=== PATIENT | male | born 1965 | race Hispanic/Latino ===

== ENCOUNTER 2020-05-06 21:23 | Inpatient (IN) | payer OTHER ==
--- OUTSIDE RECORDS SUMMARY | 2020-05-06 21:26 | XMS REPORT | Encounter Summary ---
:1965 Author Care Team Providers Name Role Phone Dr. Daniel Trujillo Primary Care Provider [phone] Reason for Visit Telemedicine Visit; cough Instructions 1. COVID-19 azithromycin 250 mg tablet albuterol sulfate HFA 90 m cg/actuation aerosol inhaler prednisone 20 mg tablet codeine 10 mg-guaifenesin 100 mg/5 mL oral liquid 2. Body mass index 30+ - obesity body mass index: care inst ructions learning about healthy jatin ght Discussion Note: None recorded. Plan of Care Patient Instructions Your symptoms may take 7-10 days to go away. Drink lots of fluids. Get plenty of rest . Contact us if you have worsening symptom s such as high fever (102F), shortness of breath, inability to keep liquids and solids down, or other worsening symptoms. Contact us if your symptoms fail to improve after 10 days. Reminders Provider Appointments None recorded. Lab None recorded. Referral None recorded. Procedures None recorded. Surgeries None recorded. Imaging None recorded. Medications Name Start Date albuterol sulfate HFA 90 mcg/actuation aerosol inhaler Inhale 2 puffs every 4 hours by inhalation route as n eeded. azithromycin 250 mg tablet TAKE 2 TABLETS (500 MG) BY ORAL ROUTE O NCE DAILY FOR 1 DAY THEN 1 TABLET (250 MG) BY ORAL ROUTE ONCE DAILY FOR 4 DAYS zlrifdczgqkpwod-[id number]-VP 2 mg-30 mg-10 mg/5 mL oral syrup TAKE 5 ML BY MOUTH THREE TIMES DAILY NEEDED FOR COUGH AND CONGESTION OR ALLERGIES codeine 10 mg-guaifenesin 100 mg/5 mL oral liquid Take 10 mL every 4-6 hours by oral route as needed. fenofibrate 160 mg tablet 1 tablet every day by oral route. metformin 500 mg tablet 1 tablet every day by oral route. phentermine 37.5 mg tablet Take 1 tablet every day by oral route for 30 days. prednisone 20 mg tablet Take 2 tablets every day by oral route for 5 days. Medications Administered None recorded. Vitals Height Weight BMI 5 ft 5 in 204 lbs 33.9 kg/m2 Results Lab Results None recorded. Allergies Code Code System Name Reaction Severity Status Onset NKDA Problems None recorded. Procedures None recorded. Vaccine List None recorded. Social History Tobacco Smoking Status Never Smoker Past Encounters Encounter Date Diagnosis Provider 05/04/2020 Covid-19; Body Mass Index 30+ Jone Allen MENDING CARRIER: [id number] - Obesity [facility], [address], [place] [address], Ph. History of Present Illness Note: Pt has had cough since 04/17. Was tested for COVID and flu on 04/17, positive for flu. Symptoms continued and was tested on 04/28 for COVID and tested positive. Body aches due to cough, dry cough, fever off/on tmax 103, SOB due to cough.Review of Systems: ROS as noted in the HPI Review of Systems Comprehensive General Adult ROS Reported By: Patient Constitutional: Constitutional: fever Eyes: Eyes: no vision change Cardiovascular: Cardiovascular: no chest alexis n, no shortness of breath when walking, no palpitations, no lighthea dedness Respiratory: Respiratory: no wheezing, no shortness of breath, no coughing up blood, cough Neurologic: Neurologic: no weakness, no numbness, no dizziness, no headaches Endocrine: Endocrine: no fatigue Physical Exam General Adult Exam (Female) Reported By: Patient Constitutional: General Appearance: healthy- appearing. Level of Distress: NAD, acutely ill Psychiatric: Insight: good judgement. Men babak Status: active and alert, normal mood, normal affect. Orienta tion: to time, to place, to person. Memory: recent memory normal Head: Head: normocephalic, atrauma tic Eyes: Vision: acuity grossly intac t Neck: Neck: FROM Lungs: Respiratory effort: no dyspn ea; +audible dry cough throughout visit
--- OUTSIDE RECORDS SUMMARY | 2020-05-06 21:26 | XMS REPORT | Continuity of Care Document ---
:1965 Author Organization [facility] t Address [address] [place] [address] Care Team Providers Name Role Phone Unavailable Unavailable Unavailable Problems This patient has no known problems. Allergies, Adverse Reactions, Alerts This patient has no known allergies or adverse reactions. Social History Smoking Status Start Date Stop Date Source Never Smoker [facility] Medications Ordered Filled Start Stop Current Ordering Indication Dosage Frequency Signature Comments Components Source Medication Medication Date Date Medication? Clinician (SIG) Name Name albuterol albuterol No 2puff(s Q4H albuterol [facility] sulfate HFA sulfate HFA ) sulfate Family 90 90 HFA 90 Pract[facility] mcg/actuati mcg/actuati mcg/actuat e on aerosol on aerosol ion inhaler inhaler aerosol Inhale 2 Inhale 2 inhaler puffs every puffs every Inhale 2 4 hours by 4 hours by puffs inhalation inhalation every 4 route as route as hours by needed. needed. inhalation route as needed. azithromyci azithromyci No azithromyc [facility] n 250 mg n 250 mg in 250 mg Fa angeline tablet TAKE tablet TAKE tablet Practic 2 TABLETS 2 TABLETS TAKE 2 e (500 MG) BY (500 MG) BY TABLETS ORAL ROUTE ORAL ROUTE (500 MG) ONCE DAILY ONCE DAILY BY ORAL FOR 1 DAY FOR 1 DAY ROUTE ONCE THEN 1 THEN 1 DAILY FOR TABLET (250 TABLET (250 1 DAY THEN MG) BY ORAL MG) BY ORAL 1 TABLET ROUTE ONCE ROUTE ONCE (250 MG) DAILY FOR 4 DAILY FOR 4 BY ORAL DAYS DAYS ROUTE ONCE DAILY FOR 4 DAYS bromphenira bromphenira No bromphenir [facility] mine-pseudo mine-pseudo amine-pseu Family ephedrine-D ephedrine-D doephedrin Pract[facility] M 2 mg-30 M 2 mg-30 e-DM 2 e mg-10 mg/5 mg-10 mg/5 mg-30 mL oral mL oral mg-10 mg/5 syrup TAKE syrup TAKE mL oral 5 ML BY 5 ML BY syrup TAKE MOUTH THREE MOUTH THREE 5 ML BY TIMES DAILY TIMES DAILY MOUTH NEEDED NEEDED THREE FOR COUGH FOR COUGH TIMES AND AND DAILY CONGESTION CONGESTION NEEDED FOR OR OR COUGH AND ALLERGIES ALLERGIES CONGESTION OR ALLERGIES codeine 10 codeine 10 No 10mL Q5H codeine 10 [facility] mg-guaifene mg-guaifene mg-guaifen Family sin 100 sin 100 esin 100 Pract ic mg/5 mL mg/5 mL mg/5 mL e oral liquid oral liquid oral Take 10 mL Take 10 mL liquid every 4-6 every 4-6 Take 10 mL hours by hours by every 4-6 oral route oral route hours by as needed. as needed. oral route as needed. fenofibrate fenofibrate No 1 Q1D fenofibrat [facility] 160 mg 160 mg e 160 mg Family tablet 1 tablet 1 tablet 1 Practic tablet tablet tablet e every day every day every day by oral by oral by oral route. route. route. metformin metformin No 1 Q1D metformin [facility] 500 mg 500 mg 500 mg Family tablet 1 tablet 1 tablet 1 Practic tablet tablet tablet e every day every day every day by oral by oral by oral route. route. route. phentermine phentermine No 1 Q1D phentermin [facility] 37.5 mg 37.5 mg e 37.5 mg Fami ly tablet Take tablet Take tablet Practic 1 tablet 1 tablet Take 1 e every day every day tablet by oral by oral every day route for route for by oral 30 days. 30 days. route for 30 days. prednisone prednisone No 2 Q1D prednisone [facility] 20 mg 20 mg 20 mg Family tablet Take tablet Take tablet Practic 2 tablets 2 tablets Take 2 e every day every day tablets by oral by oral every day route for 5 route for 5 by oral days. days. route for 5 days. Vital Signs Vital Name Observation Time Observation Value Comments Source Height 2020-05-04 00:00:00 65 [in_i] [facility] BMI (Body Mass 2020-05-04 00:00:00 33.9 kg/m2 [facility] Body Weight 2020-05-04 00:00:00 204 [lb_av] [facility] Procedures This patient has no known procedures. Plan of Care Planned Activity Planned Date Details Comments Source Instructions [facility] Encounters Start End Encounter Admission Attending Care Care Encounter Source Date/Time Date/Time Type Type Clinicians Facility Department ID 2020-05-04 2020-05-04 Jone Whiting [facility] [place] - [id number] [facility] 00:00:00 00:00:00 AllenRoxana Elizabeth y MELT HELPER: [id number] Medical - Pract [facility], [place] [address], ([facility]) [place] [address] , Ph. Results This patient has no known results.
[2020-05-06] MEDS ORDERED: dexAMETHasone 10 MG/ML VIAL ONE (22:14)
[2020-05-06 22:29] LABS: Absolute Lymphocytes (CBC) 0.9 K/uL (0.7-4.9); Basophils % 0.1 % (0-1.3); Hematocrit 47.3 % (39.6-49.0); Lymphocytes % 10.8 % (15.3-44.8); MPV 8.7 fL (7.6-11.3)
[2020-05-06 22:32] LABS: Protime INR 1.01
--- NOTE | 2020-05-06 22:42 | ER ---
Nurse's Notes [facility] Name: Maicol Cartagena Age: 54 yrs Sex: Male : 1965 Arrival Date: 05/06/2020 Time: 21:24 Bed 17 Private MD: Diagnosis: Coronavirus infection, unspecified;Pneumonia, unspecified organism;Hypoxia Presentation: 05/06 21:25 Acuity: SANDEEP 3 jb4 21:25 Method Of Arrival: EMS: [facility] jb4 21:25 Chief complaint: EMS states: PT was diagnosed with covid 19 eight days ago. Reports jb4 increased shortness of breath upon exertion. Denies fever. Coronavirus screen: Client presents with at least one sign or symptom that may indicate coronavirus-19. Standard/surgical mask placed on the client. Provider contacted for isolation considerations. Client reports previous positive COVID test result. Ebola Screen: No symptoms or risks identified at this time. Initial Sepsis Screen: Does the patient meet any 2 criteria? HR > 90 bpm. Yes Does the patient have a suspected source of infection? No. Patient's initial sepsis screen is negative. Risk Assessment: Do you want to hurt yourself or someone else? Patient reports no desire to harm self or others. Onset of symptoms was May 06, 2020. Transition of care: patient was not received from another setting of care. Historical: - Allergies: 19:15 No Known Allergies; jb4 - Home Meds: 19:15 Metformin Oral [Active]; Prednisone Oral [Active]; jb4 - PMHx: 19:15 Diabetes - NIDDM; jb4 - PSHx: 19:15 right shoulder; right hand; right knee; jb4 - Immunization history:: Adult Immunizations up to date. - Social history:: Smoking status: Patient denies any tobacco usage or history of. Patient uses alcohol, occasionally. Patient/guardian denies using street drugs. Screenin:25 Abuse screen: Denies threats or abuse. Nutritional screening: No deficits noted. jb4 Tuberculosis screening: No symptoms or risk factors identified. Fall Risk None identified. Assessment: 21:25 General: Appears in no apparent distress. uncomfortable, Behavior is calm, cooperative, jb4 appropriate for age. Pain: Denies pain. Neuro: Level of Consciousness is awake, alert, obeys commands, Oriented to person, place, time, situation. Cardiovascular: Patient's skin is warm and dry. Rhythm is sinus tachycardia. Respiratory: Airway is patent Respiratory effort is even, unlabored, Respiratory pattern is regular, symmetrical, Breath sounds are clear bilaterally. Breath sounds are diminished in right lower lobe and right posterior lower lobe. GI: No signs and/or symptoms were reported involving the gastrointestinal system. : No signs and/or symptoms were reported regarding the genitourinary system. EENT: No signs and/or symptoms were reported regarding the EENT system. Derm: Skin is intact, Skin is pink, warm \T\ dry. Musculoskeletal: Circulation, motion, and sensation intact. Range of motion: intact in all extremities. 22:30 Reassessment: Patient appears in no apparent distress at this time. Patient and/or jb4 family updated on plan of care and expected duration. Pain level reassessed. Patient is alert, oriented x 3, equal unlabored respirations, skin warm/dry/pink. 23:30 Reassessment: Patient appears in no apparent distress at this time. Patient and/or jb4 family updated on plan of care and expected duration. Pain level reassessed. Patient is alert, oriented x 3, equal unlabored respirations, skin warm/dry/pink. Vital Signs: 21:25 BP 146 / 103; Pulse 106; Resp 18; Temp 97.8(TE); Pulse Ox 88% on R/A; Weight 90.26 kg jb4 (R); Height 5 ft. 5 in. (165.10 cm); Pain 0/10; 22:30 BP 137 / 82; Pulse 104; Resp 22; Pulse Ox 91% on 2 lpm NC; jb4 23:30 BP 130 / 92; Pulse 94; Resp 21; Pulse Ox 94% on 2 lpm NC; jb4 21:25 Body Mass Index 33.11 (90.26 kg, 165.10 cm) jb4 21:25 Pt placed on 2L NC 4 ED Course: 21:24 Patient arrived in ED. cf2 21:25 Arm band placed on right wrist. jb4 21:25 Patient has correct armband on for positive identification. Bed in low position. Call [facility] light in reach. Side rails up X 1. residential monitor on. Pulse ox on. NIBP on. 21:25 Maintain EMS IV. Dressing intact. Good blood return noted. Site clean \T\ dry. Gauge \T\ linda 4 site: 18g LAC. 21:26 [facility] kb 21:26 Elias Motley MD is Attending Physician. kb 21:31 Jeff Dick, RN is Primary Nurse. jb4 21:38 Triage completed. jb4 22:02 CXR XRAY In Process Unspecified. EDMS 22:41 Johnathon Villela DO is Hospitalizing Provider. kb 22:49 Notified ED physician of a critical lab result(s). Lactate 2.3. 05/07 00:40 No provider procedures requiring assistance completed. Patient admitted, IV remains in jb4 place. Administered Medications: 05/06 22:10 Drug: Decadron - Dexamethasone 10 mg Route: IVP; Site: left antecubital; jb4 22:40 Follow up: Response: No adverse reaction jb4 22:47 Drug: Tussionex Pennkinetic ER 5 ml Route: PO; jb4 23:15 Follow up: Response: No adverse reaction; Marked relief of symptoms jb4 Outcome: 22:41 Decision to Hospitalize by Provider. kb 05/07 00:40 Admitted to Tele accompanied by nurse, room 407, with oxygen, with chart, Report called jb4 to LINCOLN Casillas Condition: stable Discharge instructions given to patient, Instructed on the need for admit, Demonstrated understanding of instructions. 00:45 Patient left the ED. jb4 Signatures: Dispatcher [employer] EDNV Any Pelletier FNP-C FNP-Freddy Giles RN RN Jeff Dick RN RN jb4 Lizeth Gibson cf2 Corrections: (The following items were deleted from the chart) 05/06 22:35 21:15 Chief complaint: EMS states: PT was diagnosed with covid 19 eight days ago. jb4 Reports increased shortness of breath upon exertion. Denies fever jb4 22:35 21:15 Coronavirus screen: Client presents with at least one sign or symptom that may jb4 indicate coronavirus-19. Standard/surgical mask placed on the client. Provider contacted for isolation considerations. Client reports previous positive COVID test result. jb4 22:35 21:15 Ebola Screen: No symptoms or risks identified at this time. jb4 jb4 22:35 21:15 Initial Sepsis Screen: Does the patient meet any 2 criteria? HR > 90 bpm. Yes jb4 Does the patient have a suspected source of infection? No. Patient's initial sepsis screen is negative. jb4 22:35 21:15 Risk Assessment: Do you want to hurt yourself or someone else? Patient reports no jb4 desire to harm self or others. jb4 22:35 21:15 Onset of symptoms was May 06, 2020 jb4 4 :35 21:15 Transition of care: patient was not received from another setting of care. jb4 4 22:35 21:15 Method Of Arrival: EMS: [facility] 4 4 22:35 21:15 BP 146 / 103; Pulse 106bpm; Resp 18bpm; Pulse Ox 88% RA; Temp 97.8F Temporal; jb4 90.26 kg Reported; Height 5 ft. 5 in.; BMI: 33.1; Pain 0/10; Pt placed on 2L NC; jb4 :35 21:15 Acuity: SANDEEP 3 jb4 4 22:36 19:15 Arm band placed on right wrist. [place] [id number] 22:37 19:15 Immunization history: Adult Immunizations up to date, [place] [id number] 22:37 19:15 Social history: Smoking status: Patient denies any tobacco usage or history of. jb4 Patient uses alcohol, occasionally. Patient/guardian denies using street drugs, jb4
--- NOTE | 2020-05-06 22:42 | EDPHYS ---
Physician Documentation [facility] Name: Maicol Cartagena Age: 54 yrs Sex: Male : 1965 Arrival Date: 05/06/2020 Time: 21:24 Bed 17 Private MD: ED Physician Elias Motley HPI: 05/06 22:24 This 54 yrs old Male presents to ER via EMS with complaints of Shortness Of kb Breath - COVID 19 Positive. 22:24 The patient has shortness of breath at rest. Onset: The symptoms/episode began/occurred kb last week, and became worse today. Duration: The symptoms are continuous. The patient's shortness of breath is aggravated by nothing, is alleviated by nothing. Associated signs and symptoms: Pertinent positives: non-productive cough. Severity of symptoms: At their worst the symptoms were mild in the emergency department the symptoms are unchanged. The patient has not experienced similar symptoms in the past. The patient has not recently seen a physician. Pt diagnosed with COVID 8 days ago. States shortness of breath got worse today, worse on exertion. reported 82% on room air at home. EMS reports 86% on room air. Historical: - Allergies: 19:15 No Known Allergies; jb4 - Home Meds: 19:15 Metformin Oral [Active]; Prednisone Oral [Active]; jb4 - PMHx: 19:15 Diabetes - NIDDM; jb4 - PSHx: 19:15 right shoulder; right hand; right knee; jb4 - Immunization history:: Adult Immunizations up to date. - Social history:: Smoking status: Patient denies any tobacco usage or history of. Patient uses alcohol, occasionally. Patient/guardian denies using street drugs. ROS: 22:23 Constitutional: Negative for fever, chills, and weight loss, Cardiovascular: Negative kb for chest pain, palpitations, and edema, Abdomen/GI: Negative for abdominal pain, nausea, vomiting, diarrhea, and constipation, Back: Negative for injury and pain, MS/Extremity: Negative for injury and deformity, Skin: Negative for injury, rash, and discoloration, Neuro: Negative for headache, weakness, numbness, tingling, and seizure. 22:23 Respiratory: Positive for cough, dyspnea on exertion, shortness of breath. Exam: 22:23 Constitutional: This is a well developed, well nourished patient who is awake, alert, kb and in no acute distress. Head/Face: Normocephalic, atraumatic. Chest/axilla: Normal chest wall appearance and motion. Nontender with no deformity. No lesions are appreciated. Cardiovascular: Regular rate and rhythm with a normal S1 and S2. No gallops, murmurs, or rubs. Normal PMI, no JVD. No pulse deficits. Abdomen/GI: Soft, non-tender, with normal bowel sounds. No distension or tympany. No guarding or rebound. No evidence of tenderness throughout. Back: No spinal tenderness. No costovertebral tenderness. Full range of motion. Skin: Warm, dry with normal turgor. Normal color with no rashes, no lesions, and no evidence of cellulitis. MS/ Extremity: Pulses equal, no cyanosis. Neurovascular intact. Full, normal range of motion. Neuro: Awake and alert, GCS 15, oriented to person, place, time, and situation. Cranial nerves II-XII grossly intact. Motor strength 5/5 in all extremities. Sensory grossly intact. Cerebellar exam normal. Normal gait. 22:23 Respiratory: mild respiratory distress is noted, Respirations: labored breathing, Breath sounds: decreased breath sounds, that are mild, are located in both bases. 22:38 ECG was reviewed by the Attending Physician. Vital Signs: 21:25 BP 146 / 103; Pulse 106; Resp 18; Temp 97.8(TE); Pulse Ox 88% on R/A; Weight 90.26 kg jb4 (R); Height 5 ft. 5 in. (165.10 cm); Pain 0/10; 22:30 BP 137 / 82; Pulse 104; Resp 22; Pulse Ox 91% on 2 lpm NC; jb4 23:30 BP 130 / 92; Pulse 94; Resp 21; Pulse Ox 94% on 2 lpm NC; jb4 21:25 Body Mass Index 33.11 (90.26 kg, 165.10 cm) jb4 21:25 Pt placed on 2L NC jb4 MDM: 21:26 Patient medically screened. kb 22:22 Data reviewed: vital signs, nurses notes. Data interpreted: Pulse oximetry: on room air kb is 88 %. Interpretation: hypoxia. Counseling: I had a detailed discussion with the patient and/or guardian regarding: the historical points, exam findings, and any diagnostic results supporting the discharge/admit diagnosis, lab results, radiology results, the need for further work-up and treatment in the hospital. 22:40 Physician consultation: Ari GRANGER was contacted at 22:41, regarding admission, kb to the telemetry unit. patient's condition, and will see patient in ED, immediately. 05/06 21:28 Order name: Blood Culture Adult (2) kb 05/06 21:28 Order name: BMP kb 05/06 21:28 Order name: C-Reactive Protein kb 05/06 21:28 Order name: CBC with Diff; Complete Time: 22:40 kb 05/06 21: Order name: Ferritin kb 05/06 21: Order name: Lactate kb 05/06 21: Order name: LFT's kb 05/06 21:28 Order name: Lipase kb 05/06 21:28 Order name: Procalcitonin kb 05/06 21:28 Order name: PT-INR; Complete Time: 22:42 kb 05/06 21:28 Order name: Ptt, Activated; Complete Time: 22:42 kb 05/06 21:28 Order name: Troponin (emerg Dept Use Only) kb 05/06 23:22 Order name: SARS-COV-2 RT PCR EDMS 05/06 21:28 Order name: CXR XRAY kb 05/06 21:28 Order name: EKG; Complete Time: 21:29 kb 05/06 21:28 Order name: Cardiac monitoring; Complete Time: 22:26 kb 05/06 21:28 Order name: Droplet/Contact Precautions; Complete Time: 21:41 kb 05/06 21:28 Order name: EKG - Nurse/Tech; Complete Time: 22:26 kb 05/06 21:28 Order name: IV Start; Complete Time: 22:26 kb 05/06 21:28 Order name: Labs collected and sent; Complete Time: 22:26 kb 05/06 21:28 Order name: O2 Per Protocol; Complete Time: 21:41 kb 05/06 21:28 Order name: O2 Sat Monitoring; Complete Time: 21:41 kb EC:38 Rate is 102 beats/min. Rhythm is regular. QRS [place] is Normal. DE interval is normal at kb 146 msec. QRS interval is normal at 90 msec. QT interval is normal at 336 msec. Administered Medications: 22:10 Drug: Decadron - Dexamethasone 10 mg Route: IVP; Site: left antecubital; jb4 22:40 Follow up: Response: No adverse reaction jb4 22:47 Drug: Tussionex Pennkinetic ER 5 ml Route: PO; jb4 23:15 Follow up: Response: No adverse reaction; Marked relief of symptoms jb4 Disposition: 05/07 06:17 Co-signature as Attending Physician, Elias Motley MD I agree with the assessment and [facility] plan of care. Disposition: 05/06/20 22:41 Hospitalization ordered by Johnathon Villela for Observation. Preliminary diagnosis are Coronavirus infection, unspecified, Pneumonia, unspecified organism, Hypoxia. - Bed requested for Telemetry/MedSurg (observation). - Status is Observation. jb4 - Condition is Stable. - Problem is new. - Symptoms are unchanged. Signatures: Dispatcher [employer] EDKY Any Pelletier, AUTO CARRIER DRIVER-C AUTO CARRIER DRIVER-Alis Sanchez RN Elias Gu MD MD cha Bryson, James, RN RN jb4 Corrections: (The following items were deleted from the chart) 05/06 22:30 21:29 CORONAVIRUS+MR.LAB.BRZ ordered. [facility] EDKY 22:37 19:15 Immunization history: Adult Immunizations up to date, 4 jb 22:37 19:15 Social history: Smoking status: Patient denies any tobacco usage or history of. jb4 Patient uses alcohol, occasionally. Patient/guardian denies using street drugs, jb4 22:42 22:41 Hospitalization Ordered by Johnathon Villela DO for Observation. Preliminary diagnosis is Coronavirus infection, unspecified; Pneumonia, unspecified organism. Bed requested for Telemetry/MedSurg (observation). Status is Observation. Condition is Stable. Problem is new. Symptoms are unchanged. kb 23:05 22:42 05/06/2020 22:41 Hospitalization Ordered by Johnathon Villela DO for Observation. Preliminary diagnosis is Coronavirus infection, unspecified; Pneumonia, unspecified organism; Hypoxia. Bed requested for Telemetry/MedSurg (observation). Status is Observation. Condition is Stable. Problem is new. Symptoms are unchanged. kb 05/07 00:45 05/06 23:05 05/06/2020 22:41 Hospitalization Ordered by Johnathon Villela DO for jb4 Observation. Preliminary diagnosis is Coronavirus infection, unspecified; Pneumonia, unspecified organism; Hypoxia. Bed requested for Telemetry/MedSurg (observation). Status is Observation. Condition is Stable. Problem is new. Symptoms are unchanged. dw
[2020-05-06] MEDS ORDERED: HYDROCODONE/CHLORPHEN 5 ML/OSYR ONE (23:00)
--- NOTE | 2020-05-06 23:00 | P.HP ---
Certification for Inpatient Patient admitted to: Observation With expected LOS: <2 Midnights Patient will require the following post-hospital care: None Practitioner: I am a practitioner with admitting privileges, knowledge of patient current condition, hospital course, and medical plan of care. Services: Services provided to patient in accordance with Admission requirements found in Title 42 Section 412.3 of the Code of Federal Regulations <Ari Frederick - Last Filed: 05/06/20 22:58> Patient admitted to: Observation With expected LOS: <2 Midnights <Johnathon Villela - Last Filed: 05/07/20 13:48> Patient History Date of Service: 05/06/20 Primary Care Provider: [facility] Reason for admission: Hypoxia, COVID History of Present Illness: 54-year-old male with history of diabetes mellitus type 2 presents emergency department for shortness of breath. Patient tested positive for COVID on 04/28/2020 at the [facility]. Patient has had persistent shortness of breath and cough since then but it has recently gotten worse. Patient checked his oxygen level at home and reports that his saturations were 82%. EMS reports saturations around 86%. In the hospital patient's room air saturations were documented as 88%. Patient is tolerating 2 3 L per nasal cannula fairly well but still having persistent cough. Chest x-ray with bilateral ground-glass opacities, white blood cell count within normal limits. Wound under observation for further evaluation and management. - Past Medical/Surgical History -: Diabetes mellitus type 2 -: Right shoulder -: Right knee Psychosocial/ Personal History: Patient works at [employer] and lives with his - Family History Family History: Reviewed- Non-Contributory - Social History Smoking Status: Never smoker Alcohol use: Yes CD- Drugs: No Caffeine use: No Place of Residence: Home <Ari Frederick - Last Filed: 05/06/20 22:58> Date of Service: 05/07/20 <Johnathon Villela - Last Filed: 05/07/20 13:48> Review of Systems 10-point ROS is otherwise unremarkable Respiratory: Cough, Shortness of Breath, SOB with Excertion <Ari Frederick - Last Filed: 05/06/20 22:58> Physical Examination - Physical Exam General: Alert, In no apparent distress HEENT: Atraumatic, PERRLA, Mucous membr. moist/pink Neck: Supple, 2+ carotid pulse no bruit, No LAD Respiratory: Normal air movement, Diminished (Bilaterally) Cardiovascular: Regular rate/rhythm, Normal S1 S2 Gastrointestinal: Normal bowel sounds, No tenderness Musculoskeletal: No tenderness Integumentary: No rashes Neurological: Normal speech, Normal strength at 5/5 x4 extr, Normal tone, Normal affect - Studies Laboratory Data (last 24 hrs) 05/06/20 22:00: PT 11.9, INR 1.01, APTT 26.1 05/06/20 22:00: WBC 8.3, Hgb 16.1, Hct 47.3, Plt Count 231 <Ari Frederick - Last Filed: 05/06/20 22:58> - Studies Laboratory Data (last 24 hrs) 05/06/20 22:00: PT 11.9, INR 1.01, APTT 26.1 05/06/20 22:00: WBC 8.3, Hgb 16.1, Hct 47.3, Plt Count 231 05/06/20 22:00: Sodium 137, Potassium 4.4, BUN 24 H, Creatinine 1.31 H, Glucose 303 H, Total Bilirubin 0.5, AST 48 H, ALT 52, Alkaline Phosphatase 108, Lipase 127 <Johnathon Villela - Last Filed: 05/07/20 13:48> Assessment and Plan - Plan Assessment COVID pneumonia with hypoxia Diabetes mellitus type 2 Plan COVID pneumonia with hypoxia: Supplemental oxygen as needed, continue IV steroids, supplements. Pulmonology consult in place. Daily room air saturations and room air saturations for home oxygen. financial services director consult in place for home oxygen set up. DVT prophylaxis with Lovenox 40 mg subcutaneous once daily, also continue with daily aspirin. Diabetes mellitus type 2: A.c. HS Accu-Cheks, sliding scale insulin therapy. Discharge Plan: Home Plan to discharge in: 24 Hours - Advance Directives Does patient have a Living Will: No Does patient have a Durable POA for Healthcare: No - Code Status/Comfort Care Code Status Assessed: Yes (Full code) Critical Care: No Time Spent Managing Pts Care (In Minutes): 55 <Ari Frederick - Last Filed: 05/06/20 22:58> - Plan Case discussed in detail with nurse practitioner. Agree with plan of care. Patient doing better this morning. Blood sugars elevated. Will check A1c. Will discuss case with pulmonology. Likely home later today if oxygen can be arranged. Please see progress note for details. <Johnathon Villela - Last Filed: 05/07/20 13:48>
[2020-05-06 23:06] LABS: ALT/SGPT 52 U/L (12-78); AST/SGOT 48 U/L (15-37); Albumin 3.2 g/dL (3.4-5.0); Alkaline Phosphatase 108 U/L (45-117); BUN Blood Urea Nitrogen 24 mg/dL (7-18); Bicarbonate 26 mmol/L (21-32); Bilirubin Direct 0.2 mg/dL (0-0.2); Bilirubin Total 0.5 mg/dL (0.2-1.0); Ferritin 2080.9 ng/mL (26-388); Glucose Level 303 mg/dL (74-106); Lipase 127 U/L (73-393); Potassium 4.4 mmol/L (3.5-5.1); Protein, Total 7.7 g/dL (6.4-8.2); Sodium Level 137 mmol/L (136-145); Troponin (Emerg Dept Use Only) < 0.02 ng/mL (0.0-0.045)
[2020-05-07] MEDS: METHYLPREDNISOLONE 40 MG INJ IV SCH ×3 (01:49→16:09)
[2020-05-07] MEDS: MELATONIN 5 MG TABLET PO PRN ×2 (01:50→19:46)
[2020-05-07 06:57] LABS: Absolute Lymphocytes (CBC) 0.8 K/uL (0.7-4.9); Basophils % 0.2 % (0-1.3); Hematocrit 45.5 % (39.6-49.0); Lymphocytes % 13.1 % (15.3-44.8); MPV 8.6 fL (7.6-11.3); RBC Red Blood Cell Count 5.26 M/uL (4.33-5.43)
[2020-05-07 07:13] LABS: C-Reactive Protein 97.4 mg/L (<3.00); Potassium 4.8 mmol/L (3.5-5.1)
[2020-05-07] MEDS: VITAMIN D 1000 UNIT TAB PO SCH (07:35)
[2020-05-07] MEDS: ZINC SULFATE 220 MG CAP PO SCH (07:36)
[2020-05-07] MEDS: ASCORBIC ACID 500 MG TABLET PO SCH ×3 (07:36→19:46)
[2020-05-07] MEDS: ASPIRIN EC 81 MG TAB PO SCH (07:36)
[2020-05-07] MEDS ORDERED: INFLUENZA VACCINE (for 3y+) 0.5 ML DOSE IMVAC ONE (08:00)
--- NOTE | 2020-05-07 08:00 | RAD REPORT ---
EXAM DESCRIPTION: RAD - Chest Single View - 05/06/2020 10:01 pm CLINICAL HISTORY: DYSPNEA, history of positive COVID test 8 days earlier, increasing shortness of br eath COMPARISON: None TECHNIQUE: AP portable chest image was obtained 05/06/2020 10:01 pm . FINDINGS: Lung volumes are low. Interstitial and patchy alveolar opacities are present worse on the left. Trachea is midline. Heart and vasculature are normal. No measurable pleural effusion and no pne umothorax. No acute bony abnormality seen. No acute aortic findings suspected. IMPRESSION: Patchy bilateral infiltrates. Given the provided history, COVID-19 pneumonia is the most likely etiology.
[2020-05-07] MEDS: INSULIN -REGULAR HUMAN 50 UNIT/0.5 ML ML SQ SCH ×4 (08:25→20:54)
[2020-05-07] MEDS ORDERED: ENOXAPARIN 40 MG/0.4 ML SQ SCH (09:00)
--- NOTE | 2020-05-07 14:40 | P.PN ---
Subjective Date of Service: 05/07/20 Primary Care Provider: BARBARA mccarty Chief Complaint: Hypoxia, COVID Subjective: Improving Physical Examination - Vital Signs Temperature: 97.2 F Blood Pressure: 129/73 Pulse: 86 Respirations: 90 Pulse Ox (%): 90 - Physical Exam General: Alert HEENT: Atraumatic Neck: Supple Respiratory: Other (Patient on 3 L per nasal cannula.) Cardiovascular: Normal pulses Neurological: Normal speech, Normal strength at 5/5 x4 extr, Normal tone, Normal affect - Studies Laboratory Data (last 24 hrs) 05/06/20 22:00: PT 11.9, INR 1.01, APTT 26.1 05/06/20 22:00: WBC 8.3, Hgb 16.1, Hct 47.3, Plt Count 231 05/06/20 22:00: Sodium 137, Potassium 4.4, BUN 24 H, Creatinine 1.31 H, Glucose 303 H, Total Bilirubin 0.5, AST 48 H, ALT 52, Alkaline Phosphatase 108, Lipase 127 Medications List Reviewed: Yes Assessment & Plan Discharge Plan: Home Plan to discharge in: 24 Hours Physician Review Additional Text: Assessment Bilateral COVID pneumonia with hypoxia Diabetes mellitus type 2, kqr-rvmlnaz-wbdtgxxxc with hyperglycemia Plan Bilateral COVID pneumonia with hypoxia: Patient remains on IV Solu-Medrol. Continue with supplementation. Patient on DVT prophylaxis. Continue to monitor CRP and ferritin. Will discuss with pulmonology. Need blood sugar better control. Restart metformin. Provide insulin sliding scale. Possible discharge later today if oxygen can be arranged. If not likely within the next 24 hr. Will reassess to determine this. Diabetes mellitus type 2 gzo-zyffcrn-zawhbmjfu with hyperglycemia: A.c. HS Accu-Cheks, sliding scale insulin therapy. Restart metformin. Check A1c. Patient may require additional medication prior to discharge. Time Spent Managing Pts Care (In Minutes): 55
--- NOTE | 2020-05-07 15:01 | P.CNS ---
Date of Consult: 05/07/20 Primary Care Provider: [facility] Chief Complaint: Hypoxia, COVID History of Present Illness: Patient is 54 years of age with a history of diabetes presented to the emergency room with shortness of breath he was diagnosed with steve virus on 04/28 that [facility] been complaining of persistent cough shortness of breath became worse he was a little hypoxic when he came in he is feeling a little better chest x-ray shows some ground-glass opacities Allergies No Known Allergies Allergy (Verified 05/07/20 01:14) Home Medications: Azithromycin Tab [Zithromax*] 250 mg PO DAILY 05/07/20 Metformin ER [Glucophage ER*] 250 mg PO BID 05/07/20 predniSONE [Prednisone*] 40 mg PO DAILY 05/07/20 - Past Medical/Surgical History Diabetic: Yes -: Diabetes mellitus type 2 -: Right shoulder -: Right knee Psychosocial/ Personal History: Patient works at [employer] and lives with his - Family History Mother Medical History: Diabetes Father History Unknown: Yes Medical History: Heart disease, Lung disease, Cancer - Social History Alcohol use: Yes CD- Drugs: No Caffeine use: Yes Place of Residence: Home Review of Systems General: Weakness Respiratory: Cough, Shortness of Breath Physical Examination Temp Pulse Resp BP Pulse Ox 97.2 F 86 90 H 129/73 90 L 05/07/20 13:51 05/07/20 13:51 05/07/20 13:51 05/07/20 13:51 05/07/20 13:51 Laboratory Data (last 24 hrs) 05/06/20 22:00: PT 11.9, INR 1.01, APTT 26.1 05/06/20 22:00: WBC 8.3, Hgb 16.1, Hct 47.3, Plt Count 231 05/06/20 22:00: Sodium 137, Potassium 4.4, BUN 24 H, Creatinine 1.31 H, Glucose 303 H, Total Bilirubin 0.5, AST 48 H, ALT 52, Alkaline Phosphatase 108, Lipase 127 - Problems (1) 2019 novel coronavirus detected Current Visit: Yes Status: Acute Plan: Patient is 54 years of age admitted with hypoxemia from steve virus is currently doing better blood sugars are high chest x-ray shows minimal changes he does have hypoxemia/blood sugars are high patient's ferritin level was over 2000 pressure was a very high I have added Januvia increase metformin had insulin will have to wait until his ferritin level start declining oxygenation slightly improves is complaining of severe coughing spells also added thymine change to p.o. Eliquis full anticoagulation
[2020-05-07] MEDS ORDERED: GLUCAGON 1 MG/VIAL IM PRN (15:03)
[2020-05-07] MEDS ORDERED: D50W 25 GM/50 ML SYRINGE IV PRN (15:03)
[2020-05-07] MEDS: SITAGLIPTIN PHOS 100 MG TAB PO SCH (15:31)
[2020-05-07] MEDS: METFORMIN ER 500 MG TAB PO SCH (19:46)
[2020-05-07] MEDS: APIXABAN 2.5 MG TABLET PO SCH (19:46)
[2020-05-07] MEDS: INSULIN GLARGINE 100 UNITS/ML SQ SCH (20:55)
[2020-05-07] MEDS ORDERED: METFORMIN ER 500 MG TAB PO SCH (21:00)
[2020-05-08] MEDS: METHYLPREDNISOLONE 40 MG INJ IV SCH ×3 (00:01→16:03)
[2020-05-08 04:16] LABS: Basophils % 0.1 % (0-1.3); Hematocrit 44.3 % (39.6-49.0); Lymphocytes % 6.5 % (15.3-44.8); MPV 8.5 fL (7.6-11.3); RBC Red Blood Cell Count 5.15 M/uL (4.33-5.43)
[2020-05-08 04:34] LABS: C-Reactive Protein 67.3 mg/L (<3.00); Magnesium 2.2 mg/dL (1.8-2.4); Potassium 4.3 mmol/L (3.5-5.1)
[2020-05-08 05:30] LABS: Blood Morphology Comment NOT SEEN (NOT SEEN); Platelet Estimate ADEQ
[2020-05-08] MEDS: METFORMIN ER 500 MG TAB PO SCH ×2 (07:30→21:06)
[2020-05-08] MEDS: APIXABAN 2.5 MG TABLET PO SCH ×2 (07:30→21:06)
[2020-05-08] MEDS: THIAMINE HCL 100 MG TABLET PO SCH (07:31)
[2020-05-08] MEDS: VITAMIN D 1000 UNIT TAB PO SCH (07:31)
[2020-05-08] MEDS: ASPIRIN EC 81 MG TAB PO SCH (07:31)
[2020-05-08] MEDS: ZINC SULFATE 220 MG CAP PO SCH (07:31)
[2020-05-08] MEDS: ASCORBIC ACID 500 MG TABLET PO SCH ×3 (07:31→21:06)
[2020-05-08] MEDS: SITAGLIPTIN PHOS 100 MG TAB PO SCH (07:31)
[2020-05-08] MEDS: INSULIN -REGULAR HUMAN 50 UNIT/0.5 ML ML SQ SCH ×4 (07:43→21:00)
--- NOTE | 2020-05-08 07:53 | P.DS ---
Admission Date: 05/07/20 Discharge Date: 05/08/20 Primary Care Provider: [place] bibiana, Dr. Trujillo Disposition: ROUTINE DISCHARGE Discharge Condition: GOOD Reason for Admission: Hypoxia, COVID Consultations: Pulmonary-Dr. Garcia Procedures: CXR: COMPARISON: None FINDINGS: Lung volumes are low. Interstitial and patchy alveolar opacities are present worse on the left. Trachea is midline. Heart and vasculature are normal. No measurable pleural effusion and no pneumothorax. No acute bony abnormality seen. No acute aortic findings suspected. IMPRESSION: Patchy bilateral infiltrates. Given the provided history, COVID-19 pneumonia is the most likely etiology. Medical problem list: Bilateral COVID-19 pneumonia with hypoxia Diabetes mellitus type 2, flg-pfrhvhy-cptjhumue with hyperglycemia Obesity, BMI 33 Hospital Course: Plan Bilateral COVID pneumonia with hypoxia: Patient remains on IV Solu-Medrol. Continue with supplementation. Patient on DVT prophylaxis. Continue to monitor CRP and ferritin. Will discuss with pulmonology. Need blood sugar better control. Restart metformin. Provide insulin sliding scale. Possible discharge later today if oxygen can be arranged. If not likely within the next 24 hr. Will reassess to determine this. Diabetes mellitus type 2 vvj-hgkzsyu-xxmmaqvtp with hyperglycemia: A.c. HS Accu-Cheks, sliding scale insulin therapy. Restart metformin. Check A1c. Patient may require additional medication prior to discharge. Time Spent Managing Pts Care (In Minutes): 55 Vital Signs/Physical Exam: Temp Pulse Resp BP Pulse Ox 98.1 F 80 16 121/59 L 88 L 05/08/20 04:00 05/08/20 04:00 05/08/20 04:00 05/08/20 04:00 05/08/20 04:00 Laboratory Data at Discharge: WBC 15.0 K/uL (4.3-10.9) H D 05/08/20 03:21 Hgb 15.2 g/dL (13.6-17.9) 05/08/20 03:21 Hct 44.3 % (39.6-49.0) 05/08/20 03:21 Plt Count 284 K/uL (152-406) D 05/08/20 03:21 PT 11.9 SECONDS (9.5-12.5) 05/06/20 22:00 INR 1.01 05/06/20 22:00 APTT 26.1 SECONDS (24.3-36.9) 05/06/20 22:00 Sodium 138 mmol/L (136-145) 05/08/20 03:21 Potassium 4.3 mmol/L (3.5-5.1) 05/08/20 03:21 BUN 31 mg/dL (7-18) H 05/08/20 03:21 Creatinine 1.09 mg/dL (0.55-1.3) 05/08/20 03:21 Glucose 255 mg/dL (74-106) H 05/08/20 03:21 Magnesium 2.2 mg/dL (1.8-2.4) 05/08/20 03:21 Total Bilirubin 0.5 mg/dL (0.2-1.0) 05/06/20 22:00 AST 48 U/L (15-37) H 05/06/20 22:00 ALT 52 U/L (12-78) 05/06/20 22:00 Alkaline Phosphatase 108 U/L (45-117) 05/06/20 22:00 Lipase 127 U/L (73-393) 05/06/20 22:00 Home Medications: Azithromycin Tab [Zithromax*] 250 mg PO DAILY 05/07/20 Metformin ER [Glucophage ER*] 250 mg PO BID 05/07/20 predniSONE [Prednisone*] 40 mg PO DAILY 05/07/20 Followup: NONE,NONE [Primary Care Provider] -
--- NOTE | 2020-05-08 08:00 | P.PN ---
Subjective Date of Service: 05/08/20 Primary Care Provider: BARBARA mccarty Chief Complaint: Hypoxia, COVID Subjective: Other (Patient doing well this morning. Patient was on 3 L. After I left nurses report patient desaturated. Patient now up to 5 L.) Physical Examination - Vital Signs Temperature: 98.1 F Blood Pressure: 121/59 Pulse: 80 Respirations: 16 Pulse Ox (%): 88 - Physical Exam General: Alert, In no apparent distress, Oriented x3, Cooperative HEENT: Atraumatic Neck: Supple Respiratory: Other (No significant distress when I saw the patient. He was on 2 L.) Cardiovascular: Normal pulses Neurological: Normal speech, Normal strength at 5/5 x4 extr, Normal tone, Normal affect - Studies Medications List Reviewed: Yes Assessment & Plan Discharge Plan: Home Plan to discharge in: 24 Hours Physician Review Additional Text: Assessment Bilateral COVID-19 pneumonia with hypoxia Diabetes mellitus type 2, kpe-qdcberz-zdttblaaq with hyperglycemia Obesity, BMI 33 Plan Bilateral COVID-19 pneumonia with hypoxia: . CRP improved. Ferritin slowly improving. Patient desatted after I saw the patient. Currently on 5 L previou sly on 3 L. Would like to see the patient below 4 L before possible discharge. Home oxygen has been arranged. May need 1 more day. Continue DVT prophylaxis and vitamin supplementation. Will need to get diabetes better controlled. Will discuss with pulmonology and Respiratory. Re-evaluate later today. Possible discharge in the next 24 hr. Diabetes mellitus type 2 xnj-evuebmz-nrqitxyop with hyperglycemia: Patient on basal insulin for better diabetic control. Metformin was increased. Anali added. A1c 7.8. Will need to consider increase metformin and possible basal insulin at discharge. Obesity, BMI 33: Will address lifestyle modification education. Time Spent Managing Pts Care (In Minutes): 55
[2020-05-08] MEDS: ACETAMINOPHEN 500 MG TAB PO PRN ×2 (08:08→16:42)
[2020-05-08] MEDS: HYDROCODONE/CHLORPHEN 5 ML/OSYR PO PRN (16:43)
[2020-05-08] MEDS: INSULIN GLARGINE 100 UNITS/ML SQ SCH (21:00)
[2020-05-08] MEDS: MELATONIN 5 MG TABLET PO PRN (21:08)
[2020-05-09] MEDS: METHYLPREDNISOLONE 40 MG INJ IV SCH ×2 (01:25→08:02)
[2020-05-09] MEDS ORDERED: HYDROCODONE/CHLORPHEN 5 ML/OSYR PO ONE (01:42)
[2020-05-09 03:56] LABS: Hematocrit 42.8 % (39.6-49.0); Lymphocytes % 7.3 % (15.3-44.8); MPV 8.6 fL (7.6-11.3); RBC Red Blood Cell Count 4.93 M/uL (4.33-5.43)
[2020-05-09 04:30] LABS: C-Reactive Protein 37.8 mg/L (<3.00); Ferritin 1616.5 ng/mL (26-388); Magnesium 2.4 mg/dL (1.8-2.4); Potassium 4.7 mmol/L (3.5-5.1)
[2020-05-09] MEDS: ASCORBIC ACID 500 MG TABLET PO SCH ×3 (08:01→20:40)
[2020-05-09] MEDS: APIXABAN 2.5 MG TABLET PO SCH ×2 (08:01→20:40)
[2020-05-09] MEDS: ASPIRIN EC 81 MG TAB PO SCH (08:01)
[2020-05-09] MEDS: METFORMIN ER 500 MG TAB PO SCH ×2 (08:01→20:40)
[2020-05-09] MEDS: VITAMIN D 1000 UNIT TAB PO SCH (08:01)
[2020-05-09] MEDS: ZINC SULFATE 220 MG CAP PO SCH (08:01)
[2020-05-09] MEDS: SITAGLIPTIN PHOS 100 MG TAB PO SCH (08:01)
[2020-05-09] MEDS: THIAMINE HCL 100 MG TABLET PO SCH (08:02)
[2020-05-09] MEDS: INSULIN -REGULAR HUMAN 50 UNIT/0.5 ML ML SQ SCH ×3 (09:24→17:13)
[2020-05-09] MEDS ORDERED: INSULIN GLARGINE 100 UNITS/ML SQ ONE (10:56)
--- NOTE | 2020-05-09 10:58 | P.PN ---
Subjective Date of Service: 05/09/20 Primary Care Provider: BARBARA mccarty Chief Complaint: Respiratory failure Subjective: Improving (Patient is steadily improving is feeling better still coughing and very hypoxic) Review of Systems General: Weakness Respiratory: Cough, Shortness of Breath Physical Examination - Vital Signs Temperature: 97.9 F Blood Pressure: 124/62 Pulse: 88 Respirations: 20 Pulse Ox (%): 90 - Studies Medications List Reviewed: Yes Assessment & Plan - Problems (Diagnosis) (1) 2018 novel coronavirus detected Current Visit: Yes Status: Acute Plan: Patient admitted with respiratory failure from steve virus ncrease dose of Solu-Medrol agree with a Remdesmir ferritin levels are still very high continuous pulse ox increase insulin dose white count is elevated suspect secondary to steroids
--- NOTE | 2020-05-09 11:43 | P.PN ---
Subjective Date of Service: 05/09/20 Primary Care Provider: BARBARA mccarty Chief Complaint: Respiratory failure Subjective: Other (Patient doing better still desats with exertion. Primarily on 3 L per nasal cannula then high-flow at times of low saturation) Physical Examination - Vital Signs Temperature: 97.9 F Blood Pressure: 124/62 Pulse: 88 Respirations: 20 Pulse Ox (%): 90 - Physical Exam General: Alert, Other (Patient ambulating well) Neck: Supple Respiratory: Other (Patient was on 3 L per nasal cannula this morning. Now on high-flow. Patient standing and moving appropriately.) Cardiovascular: Normal pulses Neurological: Normal speech, Normal strength at 5/5 x4 extr, Normal tone, Normal affect - Studies Medications List Reviewed: Yes Assessment & Plan Discharge Plan: Home Plan to discharge in: 48 Hours Physician Review Additional Text: Assessment Bilateral COVID-19 pneumonia with hypoxia Diabetes mellitus type 2, ogj-ysaxgpt-zuriyhzao with hyperglycemia Obesity, BMI 33 Plan Bilateral COVID-19 pneumonia with hypoxia: . CRP and ferritin level continue to improved. Still with some desaturations requiring high-flow. Patient was on 3 L today then change to high-flow. Patient stenting appropriately with high- flow. Care discussed with patient about starting Remdesivir and/or plasma. This was also discuss with sister who is a nurse. After long discussion with the patient. Patient desires to get both. This was discussed in detail with pulmonology who agrees with plan of care. Pharmacy to initiate medication. Will type and cross for convalescent plasma. Continue to wean off oxygen. Continue monitor lab closely including liver function test. I will turn the service over to the hospitalist team tomorrow. I will go plan of care with him. Diabetes mellitus type 2 hyv-poptjtx-mhllzhvke with hyperglycemia: Continue to adjust basal insulin. A1c 7.8. Diabetes needs to be better controlled while on IV steroids. Obesity, BMI 33: Will address lifestyle modification education. Time Spent Managing Pts Care (In Minutes): 55
[2020-05-09] MEDS ORDERED: Remdesivir 200 MG in NA CHLORIDE 0.9% 250 ML IV ONE (13:00)
[2020-05-09 13:26] LABS: Bilirubin Direct 0.2 mg/dL (0-0.2); Bilirubin Total 0.6 mg/dL (0.2-1.0); Protein, Total 7.5 g/dL (6.4-8.2)
[2020-05-09] MEDS ORDERED: NA CHLORIDE 0.9% 250 ML ONE (15:57)
[2020-05-09] MEDS: METHYLPREDNISOLONE 125 MG INJ IV SCH (17:08)
[2020-05-09] MEDS: HYDROCODONE/CHLORPHEN 5 ML/OSYR PO PRN (17:31)
[2020-05-09] MEDS: INSULIN GLARGINE 100 UNITS/ML SQ SCH (20:41)
[2020-05-10] MEDS: METHYLPREDNISOLONE 125 MG INJ IV SCH ×3 (00:17→16:59)
[2020-05-10] MEDS: INSULIN -REGULAR HUMAN 50 UNIT/0.5 ML ML SQ SCH ×5 (00:17→20:25)
[2020-05-10 05:38] LABS: Absolute Lymphocytes (CBC) 0.8 K/uL (0.7-4.9); Basophils % 0.1 % (0-1.3); Hematocrit 43.8 % (39.6-49.0); MPV 8.4 fL (7.6-11.3); RBC Red Blood Cell Count 5.09 M/uL (4.33-5.43)
[2020-05-10 05:58] LABS: Albumin 2.8 g/dL (3.4-5.0); Bilirubin Direct 0.2 mg/dL (0-0.2); Bilirubin Total 0.7 mg/dL (0.2-1.0); C-Reactive Protein 19.1 mg/L (<3.00); Potassium 4.7 mmol/L (3.5-5.1)
[2020-05-10] MEDS: APIXABAN 2.5 MG TABLET PO SCH ×2 (08:08→20:24)
[2020-05-10] MEDS: ASCORBIC ACID 500 MG TABLET PO SCH ×3 (08:08→20:24)
[2020-05-10] MEDS: THIAMINE HCL 100 MG TABLET PO SCH (08:08)
[2020-05-10] MEDS: SITAGLIPTIN PHOS 100 MG TAB PO SCH (08:08)
[2020-05-10] MEDS: ASPIRIN EC 81 MG TAB PO SCH (08:08)
[2020-05-10] MEDS: ZINC SULFATE 220 MG CAP PO SCH (08:08)
[2020-05-10] MEDS: METFORMIN ER 500 MG TAB PO SCH ×2 (08:09→20:24)
[2020-05-10] MEDS: VITAMIN D 1000 UNIT TAB PO SCH (08:09)
[2020-05-10] MEDS: Remdesivir 100 MG in NA CHLORIDE 0.9% 250 ML IV SCH (08:26)
--- NOTE | 2020-05-10 10:17 | P.PN ---
Subjective Date of Service: 05/10/20 Primary Care Provider: BARBARA mccarty Chief Complaint: Respiratory failure No change still very hypoxic still coughing Review of Systems General: Weakness Respiratory: Shortness of Breath Physical Examination - Vital Signs Temperature: 97.2 F Blood Pressure: 111/68 Pulse: 67 Respirations: 23 Pulse Ox (%): 90 - Physical Exam General: Alert, Moderate distress Respiratory: Crackles/rales, Expiratory wheezes Cardiovascular: No edema, Regular rate/rhythm - Studies Medications List Reviewed: Yes Assessment & Plan - Problems (Diagnosis) (1) 2019 novel coronavirus detected Current Visit: Yes Status: Acute Plan: Still requiring high concentrations of oxygen status post Remdesmir and an plasma maximal therapy right now CRP and ferritin levels are declining no change
[2020-05-10] MEDS: HYDROCODONE/CHLORPHEN 5 ML/OSYR PO PRN ×2 (12:29→22:00)
--- NOTE | 2020-05-10 12:33 | P.PN ---
Subjective Date of Service: 05/10/20 Primary Care Provider: BARBARA mccarty Chief Complaint: Respiratory failure Subjective: No new changes (feels about the same, breathing is "ok". no acute events overnight. received remdesivir continues to desaturate with movement) Review of Systems 10-point ROS is otherwise unremarkable Physical Examination - Vital Signs Temperature: 98.8 F Blood Pressure: 118/67 Pulse: 68 Respirations: 22 Pulse Ox (%): 90 - Physical Exam General: Alert, In no apparent distress HEENT: Sclerae nonicteric Respiratory: Other (non-labored on HFNC) Cardiovascular: No edema, Regular rate/rhythm Gastrointestinal: Soft and benign, No tenderness Musculoskeletal: No tenderness Integumentary: No significant lesion Neurological: Normal speech, Normal affect - Studies Medications List Reviewed: Yes Assessment & Plan Physician Review Additional Text: Assessment Bilateral COVID-19 pneumonia with hypoxia Diabetes mellitus type 2, yzi-ubimdjh-ozkahbboh with hyperglycemia Obesity, BMI 33 Plan Bilateral COVID-19 pneumonia with hypoxia: . CRP and ferritin improving continues with desaturations on HFNC continue solumedrol 125 TID Started remdesivir yesterday, convalescent plasma ordered as well pulmonology consulted and following wean O2 as tolerated continue to monitor CRP/ferritin Diabetes mellitus type 2 sad-lvrfcbu-dbyycrsuy with hyperglycemia: Continue to adjust basal insulin. A1c 7.8. Diabetes needs to be better controlled while on IV steroids. Obesity, BMI 33: Will address lifestyle modification education. VTE: [facility] Dispo: anticipate dc home in ~48-72 hrs Time Spent Managing Pts Care (In Minutes): 35
[2020-05-10] MEDS: ACETAMINOPHEN 500 MG TAB PO PRN (17:15)
[2020-05-10] MEDS: INSULIN GLARGINE 100 UNITS/ML SQ SCH (20:25)
[2020-05-11] MEDS: METHYLPREDNISOLONE 125 MG INJ IV SCH ×3 (00:19→15:59)
[2020-05-11 06:02] LABS: Absolute Lymphocytes (CBC) 0.7 K/uL (0.7-4.9); Basophils % 0.1 % (0-1.3); Hematocrit 42.9 % (39.6-49.0); Lymphocytes % 5.1 % (15.3-44.8); RBC Red Blood Cell Count 5.01 M/uL (4.33-5.43)
[2020-05-11 06:09] LABS: Albumin 2.6 g/dL (3.4-5.0); Bilirubin Direct 0.2 mg/dL (0-0.2); Bilirubin Total 0.6 mg/dL (0.2-1.0); C-Reactive Protein 10.9 mg/L (<3.00); Ferritin 1561.7 ng/mL (26-388); Potassium 4.5 mmol/L (3.5-5.1); Protein, Total 6.5 g/dL (6.4-8.2)
[2020-05-11] MEDS: INSULIN -REGULAR HUMAN 50 UNIT/0.5 ML ML SQ SCH ×4 (07:30→20:41)
[2020-05-11] MEDS: Remdesivir 100 MG in NA CHLORIDE 0.9% 250 ML IV SCH (08:46)
[2020-05-11] MEDS: SITAGLIPTIN PHOS 100 MG TAB PO SCH (08:47)
[2020-05-11] MEDS: APIXABAN 2.5 MG TABLET PO SCH ×2 (08:47→20:41)
[2020-05-11] MEDS: ASCORBIC ACID 500 MG TABLET PO SCH ×3 (08:47→20:40)
[2020-05-11] MEDS: ZINC SULFATE 220 MG CAP PO SCH (08:47)
[2020-05-11] MEDS: METFORMIN ER 500 MG TAB PO SCH ×2 (08:47→20:41)
[2020-05-11] MEDS: THIAMINE HCL 100 MG TABLET PO SCH (08:47)
[2020-05-11] MEDS: VITAMIN D 1000 UNIT TAB PO SCH (08:47)
[2020-05-11] MEDS: ASPIRIN EC 81 MG TAB PO SCH (08:47)
--- NOTE | 2020-05-11 09:53 | P.PN ---
Subjective Date of Service: 05/11/20 Primary Care Provider: [facility] Chief Complaint: Respiratory failure No changes still hypoxic in coughing still requiring high concentration of oxygen Physical Examination - Vital Signs Temperature: 97.2 F Blood Pressure: 112/61 Pulse: 68 Respirations: 20 Pulse Ox (%): 85 - Studies Medications List Reviewed: Yes Assessment & Plan - Problems (Diagnosis) (1) 2019 novel coronavirus detected Current Visit: Yes Status: Acute Plan: Still requiring high concentrations of oxygen status post Remdesmir and an plasma maximal therapy right now CRP and ferritin levels are declining no change
[2020-05-11 10:33] LABS: Blood Morphology Comment NOT SEEN (NOT SEEN); Platelet Estimate ADEQ; White Blood Cell Scan OK (OK)
[2020-05-11] MEDS: SPIRONOLACTONE 25 MG TABLET PO SCH (12:02)
--- NOTE | 2020-05-11 15:34 | P.PN ---
Subjective Date of Service: 05/11/20 Primary Care Provider: BARBARA mccarty Chief Complaint: Respiratory failure Subjective: No new changes (no significant change per patient, feels about the same. no acute events overnight. still requiring HFNC due to desaturations) Review of Systems 10-point ROS is otherwise unremarkable Physical Examination - Vital Signs Temperature: 98.2 F Blood Pressure: 124/76 Pulse: 64 Respirations: 20 Pulse Ox (%): 88 - Physical Exam General: Alert, In no apparent distress HEENT: Sclerae nonicteric Respiratory: Other (mildly labored on HFNC, SpO2: 87%) Cardiovascular: No edema, Regular rate/rhythm Gastrointestinal: Soft and benign, Non-distended, No tenderness Musculoskeletal: No tenderness Integumentary: No rashes Neurological: Normal speech, Normal affect - Studies Medications List Reviewed: Yes Assessment & Plan Physician Review Additional Text: Assessment Bilateral COVID-19 pneumonia with hypoxia Diabetes mellitus type 2, ssy-gtuisgj-pqvicafci with hyperglycemia Obesity, BMI 33 Plan Bilateral COVID-19 pneumonia with hypoxia: . CRP and ferritin improving continues with desaturations on HFNC, feels about same as yesterday continue solumedrol 125 TID Started remdesivir 05/09, received conv plasma as well pulmonology consulted and following wean O2 as tolerated continue to monitor CRP/ferritin Diabetes mellitus type 2 zof-ybbqone-ifgepqjga with hyperglycemia: Continue to adjust basal insulin. A1c 7.8. Diabetes with better control hyperglycemia worsened due to steroid use Obesity, BMI 33: lifestyle modification VTE: [facility] Dispo: anticipate dc home in ~48-72 hrs Time Spent Managing Pts Care (In Minutes): 35
[2020-05-11] MEDS: HYDROCODONE/CHLORPHEN 5 ML/OSYR PO PRN (15:58)
[2020-05-11] MEDS ORDERED: LORazepam 2 MG/ML VIAL IV ONE (20:00)
[2020-05-11] MEDS ORDERED: HYDROCODONE/CHLORPHEN 5 ML/OSYR PO ONE (20:00)
[2020-05-11] MEDS: INSULIN GLARGINE 100 UNITS/ML SQ SCH (20:41)
[2020-05-12] MEDS: METHYLPREDNISOLONE 125 MG INJ IV SCH ×3 (00:48→16:41)
[2020-05-12 06:51] LABS: Absolute Lymphocytes (CBC) 0.4 K/uL (0.7-4.9); Basophils % 0.4 % (0-1.3); Hematocrit 44.3 % (39.6-49.0); Lymphocytes % 3.2 % (15.3-44.8); MPV 8.1 fL (7.6-11.3); RBC Red Blood Cell Count 5.17 M/uL (4.33-5.43)
[2020-05-12 07:14] LABS: Albumin 2.5 g/dL (3.4-5.0); Bilirubin Direct 0.1 mg/dL (0-0.2); Bilirubin Total 0.7 mg/dL (0.2-1.0); C-Reactive Protein 20.9 mg/L (<3.00); Ferritin 1490.5 ng/mL (26-388); Potassium 4.4 mmol/L (3.5-5.1); Protein, Total 6.4 g/dL (6.4-8.2)
[2020-05-12] MEDS: INSULIN -REGULAR HUMAN 50 UNIT/0.5 ML ML SQ SCH ×4 (07:30→21:21)
[2020-05-12] MEDS: APIXABAN 2.5 MG TABLET PO SCH (08:29)
[2020-05-12] MEDS: METFORMIN ER 500 MG TAB PO SCH ×2 (08:29→21:22)
[2020-05-12] MEDS: SPIRONOLACTONE 25 MG TABLET PO SCH (08:30)
[2020-05-12] MEDS: SITAGLIPTIN PHOS 100 MG TAB PO SCH (08:30)
[2020-05-12] MEDS: VITAMIN D 1000 UNIT TAB PO SCH (08:30)
[2020-05-12] MEDS: THIAMINE HCL 100 MG TABLET PO SCH (08:30)
[2020-05-12] MEDS: ASPIRIN EC 81 MG TAB PO SCH (08:30)
[2020-05-12] MEDS: ZINC SULFATE 220 MG CAP PO SCH (08:30)
[2020-05-12] MEDS: ASCORBIC ACID 500 MG TABLET PO SCH ×3 (08:30→21:23)
--- NOTE | 2020-05-12 08:48 | RAD REPORT ---
EXAM DESCRIPTION: RAD - Chest Single View - 05/12/2020 5:27 am CLINICAL HISTORY: SOB, COVID Chest pain. COMPARISON: Chest Single View dated 05/06/2020 FINDINGS: Portable technique limits examination quality. Mild worsening in bilateral pulmonary opacities noted since comparative radiographs. Moderately sever e bilateral pulmonary opacities are noted compatible with underlying COVID infection. The heart is no rmal in size. No displaced fractures. IMPRESSION: Mild to moderate worsening in lung aeration since comparative study.
[2020-05-12] MEDS: Remdesivir 100 MG in NA CHLORIDE 0.9% 250 ML IV SCH (09:24)
[2020-05-12 09:50] LABS: Blood Morphology Comment NOT SEEN (NOT SEEN); Platelet Estimate ADEQ
--- NOTE | 2020-05-12 12:14 | P.PN ---
Subjective Date of Service: 05/12/20 Primary Care Provider: BARBARA mccarty Chief Complaint: Respiratory failure Patient not doing very well still requiring high concentrations of oxygen still coughing Review of Systems General: Weakness Respiratory: Shortness of Breath Physical Examination - Vital Signs Temperature: 97.3 F Blood Pressure: 101/58 Pulse: 63 Respirations: 20 Pulse Ox (%): 87 - Physical Exam General: Alert, Moderate distress Respiratory: Crackles/rales, Expiratory wheezes - Studies Microbiology Data (last 24 hrs): 05/06/20 22:30 Blood - Blood Aerobic Blood Culture - Final No growth in 5 days. 05/06/20 22:30 Blood - Blood Anaerobic Blood Culture - Final No growth in 5 days. 05/06/20 22:15 Blood - Blood Aerobic Blood Culture - Final No growth in 5 days. 05/06/20 22:15 Blood - Blood Anaerobic Blood Culture - Final No growth in 5 days. Medications List Reviewed: Yes Assessment & Plan - Problems (Diagnosis) (1) 2019 novel coronavirus detected Current Visit: Yes Status: Acute Plan: Respiratory failure ferritin levels still very high over a 1000 declined is slightly CRP level is 20 continue with present treatment steroids BiPAP high- flow prone position ventilation white count is mildly elevated
--- NOTE | 2020-05-12 18:46 | P.PN ---
Subjective Date of Service: 05/12/20 Primary Care Provider: BARBARA mccarty Chief Complaint: Respiratory failure Subjective: No new changes (Patient reports feeling about the same, still requiring high-flow nasal cannula, continues with cough. Desaturates with movement but able to recover slowly) Review of Systems 10-point ROS is otherwise unremarkable Physical Examination - Vital Signs Temperature: 98.1 F Blood Pressure: 123/66 Pulse: 76 Respirations: 32 Pulse Ox (%): 90 - Physical Exam General: Alert HEENT: Sclerae nonicteric Respiratory: Other (Labored respirations on high-flow nasal cannula, positive dry cough) Cardiovascular: No edema, Regular rate/rhythm Gastrointestinal: Soft and benign, No tenderness Musculoskeletal: No tenderness Integumentary: No rashes Neurological: Normal speech - Studies Microbiology Data (last 24 hrs): 05/06/20 22:30 Blood - Blood Aerobic Blood Culture - Final No growth in 5 days. 05/06/20 22:30 Blood - Blood Anaerobic Blood Culture - Final No growth in 5 days. 05/06/20 22:15 Blood - Blood Aerobic Blood Culture - Final No growth in 5 days. 05/06/20 22:15 Blood - Blood Anaerobic Blood Culture - Final No growth in 5 days. Medications List Reviewed: Yes Assessment & Plan Physician Review Additional Text: Assessment Bilateral COVID-19 pneumonia with hypoxia Diabetes mellitus type 2, pmc-mxraxem-ryjbyfthz with hyperglycemia Obesity, BMI 33 Plan Bilateral COVID-19 pneumonia with hypoxia: . CRP and ferritin improving continues with desaturations on HFNC, no significant improvement prones as much as he can Started remdesivir 05/09, received conv plasma as well continue high dose solumedrol pulmonology consulted and following wean O2 as tolerated continue to monitor CRP/ferritin Diabetes mellitus type 2 bdu-bwogzvj-kkbtjcbqo with hyperglycemia: Continue to adjust basal insulin. A1c 7.8. Diabetes with better control, on januvia hyperglycemia worsened due to steroid use Obesity, BMI 33: lifestyle modification VTE: Eliquis Dispo: anticipate hospitalization > 2 days Time Spent Managing Pts Care (In Minutes): 35
[2020-05-12] MEDS ORDERED: HYDROCODONE/CHLORPHEN 5 ML/OSYR PO PRN (20:54)
[2020-05-12] MEDS: INSULIN GLARGINE 100 UNITS/ML SQ SCH (21:20)
[2020-05-12] MEDS: HYDROCODONE/CHLORPHEN 5 ML/OSYR PO PRN (21:22)
[2020-05-12] MEDS: ACETAMINOPHEN 500 MG TAB PO PRN (21:23)
[2020-05-12] MEDS: MELATONIN 5 MG TABLET PO PRN (21:23)
[2020-05-12] MEDS: APIXABAN 5 MG TABLET PO SCH (21:23)
[2020-05-13] MEDS: METHYLPREDNISOLONE 125 MG INJ IV SCH ×3 (00:17→16:13)
[2020-05-13 06:49] LABS: Ferritin 1478.3 ng/mL (26-388); Magnesium 2.5 mg/dL (1.8-2.4); Potassium 4.6 mmol/L (3.5-5.1)
[2020-05-13] MEDS: VITAMIN D 1000 UNIT TAB PO SCH (07:58)
[2020-05-13] MEDS: METFORMIN ER 500 MG TAB PO SCH ×2 (07:58→20:34)
[2020-05-13] MEDS: ASCORBIC ACID 500 MG TABLET PO SCH ×3 (07:59→20:35)
[2020-05-13] MEDS: THIAMINE HCL 100 MG TABLET PO SCH (07:59)
[2020-05-13] MEDS: ASPIRIN EC 81 MG TAB PO SCH (07:59)
[2020-05-13] MEDS: APIXABAN 5 MG TABLET PO SCH ×2 (07:59→20:34)
[2020-05-13] MEDS: SITAGLIPTIN PHOS 100 MG TAB PO SCH (08:00)
[2020-05-13] MEDS: ZINC SULFATE 220 MG CAP PO SCH (08:00)
[2020-05-13] MEDS: SPIRONOLACTONE 25 MG TABLET PO SCH (08:04)
[2020-05-13] MEDS: INSULIN -REGULAR HUMAN 50 UNIT/0.5 ML ML SQ SCH ×4 (08:53→21:24)
[2020-05-13] MEDS: Remdesivir 100 MG in NA CHLORIDE 0.9% 250 ML IV SCH (08:55)
--- NOTE | 2020-05-13 11:57 | P.PN ---
Subjective Date of Service: 05/13/20 Primary Care Provider: [facility] Chief Complaint: Respiratory failure No change rads feeling slightly better oxygen requirement slightly lower is now on BiPAP Review of Systems General: Weakness Respiratory: Cough, Shortness of Breath Physical Examination - Vital Signs Temperature: 97.1 F Blood Pressure: 129/75 Pulse: 74 Respirations: 20 Pulse Ox (%): 81 - Studies Medications List Reviewed: Yes Assessment & Plan - Problems (Diagnosis) (1) 2018 novel coronavirus detected Current Visit: Yes Status: Acute Plan: Respiratory failure continue with BiPAP continue to titrate O2 down ferritin level still order 1000 CRP is significantly low or continue with steroids doing much better on BiPAP
--- NOTE | 2020-05-13 17:37 | P.PN ---
Subjective Date of Service: 05/13/20 Primary Care Provider: BARBARA mccarty Chief Complaint: Respiratory failure No major changes from yesterday. Patient still requiring BiPAP. Physical Examination - Vital Signs Temperature: 97.6 F Blood Pressure: 112/62 Pulse: 88 Respirations: 26 Pulse Ox (%): 89 - Physical Exam General: Alert, In no apparent distress HEENT: Other (BiPAP applied) Neck: JVD not distended Respiratory: Crackles/rales (Bibasilar) Cardiovascular: No edema, Regular rate/rhythm, Normal S1 S2 Gastrointestinal: Soft and benign, Non-distended Musculoskeletal: No swelling Integumentary: No rashes Neurological: Normal strength at 5/5 x4 extr - Studies Medications List Reviewed: Yes Assessment And Plan - Current Problems (Diagnosis) (1) Pneumonia due to COVID-19 virus Current Visit: Yes Status: Acute (2) Acute respiratory failure with hypoxia Current Visit: Yes Status: Acute Physician Review Additional Text: Assessment Bilateral COVID-19 pneumonia with hypoxia Diabetes mellitus type 2, izw-jazjmvk-izixnmpqw with hyperglycemia Obesity, BMI 33 Plan Bilateral COVID-19 pneumonia with hypoxia: . CRP and ferritin improving continues with desaturations on HFNC. Continue BiPAP continue high dose solumedrol. Completed Remdesivir. pulmonology consulted and following wean O2 as tolerated continue to monitor CRP/ferritin Diabetes mellitus type 2 sfi-jgftfxa-ydsetoiey with hyperglycemia: Continue to adjust basal insulin. A1c 7.8. Diabetes with better control, on januvia Obesity, BMI 33: lifestyle modification VTE: [place]
[2020-05-13] MEDS: INSULIN GLARGINE 100 UNITS/ML SQ SCH (21:24)
[2020-05-14] MEDS: METHYLPREDNISOLONE 125 MG INJ IV SCH ×3 (00:20→16:34)
[2020-05-14] MEDS: INSULIN -REGULAR HUMAN 50 UNIT/0.5 ML ML SQ SCH ×4 (09:10→22:12)
[2020-05-14] MEDS: SITAGLIPTIN PHOS 100 MG TAB PO SCH (09:11)
[2020-05-14] MEDS: VITAMIN D 1000 UNIT TAB PO SCH (09:11)
[2020-05-14] MEDS: ZINC SULFATE 220 MG CAP PO SCH (09:12)
[2020-05-14] MEDS: ASCORBIC ACID 500 MG TABLET PO SCH ×3 (09:12→20:12)
[2020-05-14] MEDS: SPIRONOLACTONE 25 MG TABLET PO SCH (09:12)
[2020-05-14] MEDS: APIXABAN 5 MG TABLET PO SCH ×2 (09:12→20:11)
[2020-05-14] MEDS: ASPIRIN EC 81 MG TAB PO SCH (09:12)
[2020-05-14] MEDS: METFORMIN ER 500 MG TAB PO SCH ×2 (09:12→20:11)
[2020-05-14] MEDS: THIAMINE HCL 100 MG TABLET PO SCH (09:55)
[2020-05-14] MEDS ORDERED: ENSURE HIGH PROTEIN 237 ML CAN PO PRN (10:52)
--- NOTE | 2020-05-14 12:32 | P.PN ---
Subjective Date of Service: 05/14/20 Primary Care Provider: [facility] Chief Complaint: Respiratory failure Patient was changed to BiPAP is feeling better still hypoxic short of breath coughing Review of Systems General: Weakness Respiratory: Cough, Shortness of Breath Physical Examination - Vital Signs Temperature: 97.1 F Blood Pressure: 107/60 Pulse: 62 Respirations: 26 Pulse Ox (%): 90 - Studies Medications List Reviewed: Yes Assessment & Plan - Problems (Diagnosis) (1) 2019 novel coronavirus detected Current Visit: Yes Status: Acute Plan: Respiratory failure from coronal wire increase insulin continue with present doses of steroid no change
[2020-05-14] MEDS ORDERED: GLUCAGON 1 MG/VIAL IM PRN (13:01)
[2020-05-14] MEDS ORDERED: D50W 25 GM/50 ML SYRINGE IV PRN (13:01)
[2020-05-14] MEDS ORDERED: INSULIN GLARGINE 100 UNITS/ML SQ ONE (13:02)
--- NOTE | 2020-05-14 15:56 | P.PN ---
Subjective Date of Service: 05/14/20 Primary Care Provider: [place] bibiana Chief Complaint: Respiratory failure No major changes from yesterday. Patient denies shortness of breath. He is tolerating high-flow oxygen today. Physical Examination - Vital Signs Temperature: 97.1 F Blood Pressure: 107/60 Pulse: 62 Respirations: 26 Pulse Ox (%): 90 - Physical Exam General: Alert, In no apparent distress Respiratory: Crackles/rales Cardiovascular: No edema, Regular rate/rhythm, Normal S1 S2 Gastrointestinal: Soft and benign, Non-distended Musculoskeletal: No swelling, No tenderness Integumentary: No rashes, No erythema Neurological: Normal strength at 5/5 x4 extr - Studies Medications List Reviewed: Yes Assessment And Plan - Current Problems (Diagnosis) (1) Pneumonia due to COVID-19 virus Current Visit: Yes Status: Acute (2) Acute respiratory failure with hypoxia Current Visit: Yes Status: Acute Physician Review Additional Text: Assessment Bilateral COVID-19 pneumonia with hypoxia Diabetes mellitus type 2, vwb-fidqubi-ipgiccrlq with hyperglycemia Obesity, BMI 33 Plan Bilateral COVID-19 pneumonia with hypoxia: . CRP and ferritin improving continue high dose solumedrol. Completed Remdesivir. pulmonology consulted and following wean O2 as tolerated continue to monitor CRP/ferritin Patient started on Aldactone. Diabetes mellitus type 2 xun-kuqelwb-wkiewqmro with hyperglycemia: Titrate Lantus insulin for steroid induced hyperglycemia. Continue insulin sliding scale. A1c 7.8. Patient also on metformin. Obesity, BMI 33: lifestyle modification VTE: Eliitzis
[2020-05-14] MEDS: MELATONIN 5 MG TABLET PO PRN (20:12)
[2020-05-14] MEDS: INSULIN GLARGINE 100 UNITS/ML SQ SCH (22:11)
[2020-05-15] MEDS: METHYLPREDNISOLONE 125 MG INJ IV SCH ×2 (00:05→08:00)
[2020-05-15 06:05] LABS: Absolute Lymphocytes (CBC) 0.5 K/uL (0.7-4.9); Basophils % 0.1 % (0-1.3); Lymphocytes % 2.6 % (15.3-44.8); MPV 8.6 fL (7.6-11.3); RBC Red Blood Cell Count 5.23 M/uL (4.33-5.43)
[2020-05-15 06:13] LABS: ALT/SGPT 46 U/L (12-78); AST/SGOT 21 U/L (15-37); Albumin 2.4 g/dL (3.4-5.0); Alkaline Phosphatase 90 U/L (45-117); BUN Blood Urea Nitrogen 31 mg/dL (7-18); Bicarbonate 28 mmol/L (21-32); Bilirubin Total 0.7 mg/dL (0.2-1.0); Ferritin 1344.2 ng/mL (26-388); Glucose Level 148 mg/dL (74-106); Potassium 4.3 mmol/L (3.5-5.1); Protein, Total 6.2 g/dL (6.4-8.2); Sodium Level 138 mmol/L (136-145)
[2020-05-15 07:02] LABS: Platelet Estimate ADEQ; White Blood Cell Scan OK (OK)
[2020-05-15 07:03] LABS: Blood Morphology Comment NOTED (NOT SEEN); Target Cells FEW
[2020-05-15] MEDS: INSULIN -REGULAR HUMAN 50 UNIT/0.5 ML ML SQ SCH ×4 (07:30→21:23)
[2020-05-15] MEDS: APIXABAN 5 MG TABLET PO SCH ×2 (07:57→19:59)
[2020-05-15] MEDS: SPIRONOLACTONE 25 MG TABLET PO SCH (07:57)
[2020-05-15] MEDS: ZINC SULFATE 220 MG CAP PO SCH (07:57)
[2020-05-15] MEDS: THIAMINE HCL 100 MG TABLET PO SCH (07:57)
[2020-05-15] MEDS: ASPIRIN EC 81 MG TAB PO SCH (07:57)
[2020-05-15] MEDS: INSULIN GLARGINE 100 UNITS/ML SQ SCH ×2 (07:58→21:23)
[2020-05-15] MEDS: ASCORBIC ACID 500 MG TABLET PO SCH ×3 (07:58→19:59)
[2020-05-15] MEDS: SITAGLIPTIN PHOS 100 MG TAB PO SCH (07:58)
[2020-05-15] MEDS: VITAMIN D 1000 UNIT TAB PO SCH (07:58)
[2020-05-15] MEDS: METFORMIN ER 500 MG TAB PO SCH ×2 (07:58→19:58)
--- NOTE | 2020-05-15 12:01 | P.PN ---
Subjective Date of Service: 05/15/20 Primary Care Provider: [facility] Chief Complaint: Respiratory failure Slowly improving oxygen requirements are declining he is feeling a little better Review of Systems General: Weakness Respiratory: Shortness of Breath Physical Examination - Vital Signs Temperature: 98 F Blood Pressure: 141/60 Pulse: 61 Respirations: 27 Pulse Ox (%): 87 - Studies Medications List Reviewed: Yes Assessment & Plan - Problems (Diagnosis) (1) 2019 novel coronavirus detected Current Visit: Yes Status: Acute Plan: Respiratory failure his ferritin levels are still very high of increase the dose of Solu-Medrol to 250 IV q.8 to see if it helps a more white count is mildly elevated I HAVE ADDED ANTIBIOTIC
[2020-05-15] MEDS: levoFLOXacin 500 MG TAB PO SCH (13:26)
--- NOTE | 2020-05-15 15:39 | P.PN ---
Subjective Date of Service: 05/15/20 Primary Care Provider: BARBARA mccarty Chief Complaint: Respiratory failure No major changes from yesterday. Patient denies shortness of breath at rest. He has been alternating between high-flow oxygen and BiPAP. Leukocytosis the significant worse today. Physical Examination - Vital Signs Temperature: 98 F Blood Pressure: 141/60 Pulse: 61 Respirations: 27 Pulse Ox (%): 87 - Physical Exam General: Alert, In no apparent distress HEENT: Other (BiPAP applied) Respiratory: Crackles/rales Cardiovascular: Regular rate/rhythm, Normal S1 S2 Gastrointestinal: Soft and benign, Non-distended Musculoskeletal: No swelling Integumentary: No rashes Neurological: Normal strength at 5/5 x4 extr - Studies Medications List Reviewed: Yes Assessment And Plan - Current Problems (Diagnosis) (1) Pneumonia due to COVID-19 virus Current Visit: Yes Status: Acute (2) Acute respiratory failure with hypoxia Current Visit: Yes Status: Acute Physician Review Additional Text: Assessment Bilateral COVID-19 pneumonia with hypoxia Diabetes mellitus type 2, zyy-yinzgjy-aqtrhpfkn with hyperglycemia Obesity, BMI 33 Plan Bilateral COVID-19 pneumonia with hypoxia: . continue high dose solumedrol. Completed Remdesivir. pulmonology following wean FiO2 and BiPAP as tolerated. continue to monitor CRP/ferritin On Aldactone. Diabetes mellitus type 2 pzq-webripm-zrhqohjsv with hyperglycemia: Titrate Lantus insulin for steroid induced hyperglycemia. Continue insulin sliding scale. A1c 7.8. Patient also on metformin. Obesity, BMI 33: lifestyle modification VTE: [place]
[2020-05-15] MEDS ORDERED: METHYLPREDNISOLONE 125 MG INJ IV SCH (17:00)
[2020-05-15] MEDS: METHYLPRED NA SUC 250 MG in NA CHLORIDE 0.9% 100 ML IV SCH (17:00)
[2020-05-15] MEDS ORDERED: NA CHLORIDE 0.9% 100 ML ONE ×2 (17:17→22:32)
[2020-05-15] MEDS ORDERED: METHYLPREDNISOLONE 125 MG INJ ONE ×2 (17:17→22:32)
[2020-05-15] MEDS: MELATONIN 5 MG TABLET PO PRN (19:59)
[2020-05-16] MEDS: METHYLPRED NA SUC 250 MG in NA CHLORIDE 0.9% 100 ML IV SCH ×2 (00:05→09:00)
[2020-05-16 05:45] LABS: Absolute Lymphocytes (CBC) 0.4 K/uL (0.7-4.9); Hematocrit 48.7 % (39.6-49.0); Lymphocytes % 2.1 % (15.3-44.8); MPV 8.8 fL (7.6-11.3); RBC Red Blood Cell Count 5.65 M/uL (4.33-5.43)
[2020-05-16 05:58] LABS: C-Reactive Protein 17.4 mg/L (<3.00); Ferritin 1480.4 ng/mL (26-388)
--- NOTE | 2020-05-16 07:20 | RAD REPORT ---
EXAM DESCRIPTION: RAD - Chest Single View - 05/16/2020 6:55 am CLINICAL HISTORY: Pneumonia COMPARISON: May 13, 2020, May 06, 2020 TECHNIQUE: AP portable chest image was obtained 05/16/2020 6:55 am . FINDINGS: Interstitial and alveolar opacification present. There has been partial clearing of the ai rspace disease. Heart and vasculature are normal. No measurable pleural effusion and no pneumothorax. No acute bony abnormality seen. No acute aortic findings suspected. IMPRESSION: Partial clearing of the left greater than right infiltrates. Significant parenchymal opa cification remains.
[2020-05-16] MEDS: INSULIN -REGULAR HUMAN 50 UNIT/0.5 ML ML SQ SCH ×4 (07:30→21:47)
[2020-05-16] MEDS: THIAMINE HCL 100 MG TABLET PO SCH (09:10)
[2020-05-16] MEDS: METFORMIN ER 500 MG TAB PO SCH ×2 (09:10→20:30)
[2020-05-16] MEDS: VITAMIN D 1000 UNIT TAB PO SCH (09:10)
[2020-05-16] MEDS: ASPIRIN EC 81 MG TAB PO SCH (09:10)
[2020-05-16] MEDS: SITAGLIPTIN PHOS 100 MG TAB PO SCH (09:10)
[2020-05-16] MEDS: ZINC SULFATE 220 MG CAP PO SCH (09:10)
[2020-05-16] MEDS: ASCORBIC ACID 500 MG TABLET PO SCH ×3 (09:11→20:30)
[2020-05-16] MEDS: levoFLOXacin 500 MG TAB PO SCH (09:11)
[2020-05-16] MEDS: SPIRONOLACTONE 25 MG TABLET PO SCH (09:11)
[2020-05-16] MEDS: APIXABAN 5 MG TABLET PO SCH ×2 (09:12→20:30)
[2020-05-16] MEDS: INSULIN GLARGINE 100 UNITS/ML SQ SCH ×2 (09:22→21:47)
--- NOTE | 2020-05-16 09:47 | P.PN ---
Subjective Date of Service: 05/16/20 (Telephone visit) Primary Care Provider: [facility] Chief Complaint: Respiratory failure Still continues to remain hypoxic agitated requiring high concentrations of oxygen Review of Systems General: Weakness Respiratory: Shortness of Breath Physical Examination - Vital Signs Temperature: 97.0 F Blood Pressure: 106/59 Pulse: 69 Respirations: 14 Pulse Ox (%): 93 - Studies Medications List Reviewed: Yes Assessment & Plan - Problems (Diagnosis) (1) 2019 novel coronavirus detected Current Visit: Yes Status: Acute Plan: Respiratory failure increased EPAP I have added some Ativan for sedation white count is no increase probably side effect of steroids of reduce the dose today looks like his x-ray has improved although ferritin levels are still very how
[2020-05-16] MEDS: METHYLPRED NA SUC 125 MG in NA CHLORIDE 0.9% 100 ML IV SCH ×2 (10:37→18:50)
--- NOTE | 2020-05-16 12:05 | P.PN ---
Subjective Date of Service: 05/16/20 Primary Care Provider: [place] bibiana Chief Complaint: Respiratory failure No major changes from yesterday. Patient reports shortness of breath with exertion. He has been maintained on high-flow oxygen. Physical Examination - Vital Signs Temperature: 97.0 F Blood Pressure: 106/59 Pulse: 69 Respirations: 14 Pulse Ox (%): 93 - Physical Exam General: Alert, In no apparent distress, Oriented x3 Respiratory: Crackles/rales Cardiovascular: No edema, Regular rate/rhythm, Normal S1 S2 Gastrointestinal: Soft and benign, Non-distended, No tenderness Musculoskeletal: No swelling Integumentary: No rashes Neurological: Normal speech, Normal strength at 5/5 x4 extr - Studies Medications List Reviewed: Yes Assessment And Plan - Current Problems (Diagnosis) (1) Pneumonia due to COVID-19 virus Current Visit: Yes Status: Acute (2) Acute respiratory failure with hypoxia Current Visit: Yes Status: Acute Physician Review Additional Text: Assessment Bilateral COVID-19 pneumonia with hypoxia Diabetes mellitus type 2, abm-zxerhuy-oaijehctb with hyperglycemia Obesity, BMI 33 Plan Bilateral COVID-19 pneumonia with hypoxia: . continue high dose solumedrol. s/p Remdesivir. pulmonology following wean FiO2 as tolerated. continue to monitor CRP/ferritin. On Aldactone. Diabetes mellitus type 2 qlk-gjfdsqq-sjtytysvm with hyperglycemia: Blood glucose readings are stable with current Lantus dose and insulin sliding scale. A1c 7.8. Patient also on metformin. VTE: Eliquis
[2020-05-16] MEDS: MELATONIN 5 MG TABLET PO PRN (20:30)
[2020-05-16] MEDS: LORAZEPAM 1 MG TABLET PO PRN (20:30)
[2020-05-17] MEDS: METHYLPRED NA SUC 125 MG in NA CHLORIDE 0.9% 100 ML IV SCH ×2 (00:04→09:16)
[2020-05-17] MEDS: LORAZEPAM 1 MG TABLET PO PRN ×2 (03:12→21:57)
[2020-05-17 05:24] LABS: Absolute Lymphocytes (CBC) 0.3 K/uL (0.7-4.9); Basophils % 0.3 % (0-1.3); Hematocrit 44.6 % (39.6-49.0); Lymphocytes % 1.6 % (15.3-44.8); MPV 8.6 fL (7.6-11.3); RBC Red Blood Cell Count 5.15 M/uL (4.33-5.43)
[2020-05-17 05:52] LABS: C-Reactive Protein 31.8 mg/L (<3.00); Ferritin 1378.7 ng/mL (26-388)
[2020-05-17] MEDS: INSULIN -REGULAR HUMAN 50 UNIT/0.5 ML ML SQ SCH ×4 (07:25→21:00)
[2020-05-17] MEDS: INSULIN GLARGINE 100 UNITS/ML SQ SCH ×2 (08:21→21:00)
[2020-05-17] MEDS: SPIRONOLACTONE 25 MG TABLET PO SCH (08:22)
[2020-05-17] MEDS: THIAMINE HCL 100 MG TABLET PO SCH (08:22)
[2020-05-17] MEDS: ZINC SULFATE 220 MG CAP PO SCH (08:22)
[2020-05-17] MEDS: SITAGLIPTIN PHOS 100 MG TAB PO SCH (08:23)
[2020-05-17] MEDS: METFORMIN ER 500 MG TAB PO SCH ×2 (08:23→21:36)
[2020-05-17] MEDS: APIXABAN 5 MG TABLET PO SCH ×2 (08:23→21:36)
[2020-05-17] MEDS: levoFLOXacin 500 MG TAB PO SCH (08:23)
[2020-05-17] MEDS: ASCORBIC ACID 500 MG TABLET PO SCH ×3 (08:23→21:36)
[2020-05-17] MEDS: ASPIRIN EC 81 MG TAB PO SCH (08:23)
[2020-05-17] MEDS: VITAMIN D 1000 UNIT TAB PO SCH (08:23)
[2020-05-17] MEDS: ATORVASTATIN 40 MG TAB PO SCH ×2 (09:24→21:37)
[2020-05-17] MEDS: BUDESONIDE 0.5 MG/2 ML NEB NEB SCH (10:36)
--- NOTE | 2020-05-17 10:38 | P.PN ---
Subjective Date of Service: 05/17/20 Primary Care Provider: BARBARA mccarty Chief Complaint: Respiratory failure No change still very hypoxic complaining of cough still requiring 100% FiO2 Review of Systems ENT: Nose Discharge Respiratory: Cough, Shortness of Breath Physical Examination - Vital Signs Temperature: 97.0 F Blood Pressure: 103/58 Pulse: 58 Respirations: 24 Pulse Ox (%): 97 - Physical Exam General: Alert, Moderate distress Respiratory: Clear to auscultation bilaterally, Diminished - Studies Medications List Reviewed: Yes Assessment & Plan - Problems (Diagnosis) (1) 2019 novel coronavirus detected Current Visit: Yes Status: Acute Plan: Admitted with respiratory failure from steve virus continue with present treatment advice to use BiPAP more than high-flow white count elevated ferritin level still very high
--- NOTE | 2020-05-17 12:08 | P.PN ---
Subjective Date of Service: 05/17/20 Primary Care Provider: BARBARA mccarty Chief Complaint: Respiratory failure No major changes from yesterday. Patient still requiring BiPAP and high-flow oxygen and high percent FiO2 WBC as well as ferritin level remain high. Physical Examination - Vital Signs Temperature: 97.0 F Blood Pressure: 103/58 Pulse: 58 Respirations: 24 Pulse Ox (%): 97 - Physical Exam General: Alert, Mild distress Respiratory: Crackles/rales Cardiovascular: No edema, Regular rate/rhythm, Normal S1 S2 Gastrointestinal: Soft and benign, Non-distended Musculoskeletal: No swelling Integumentary: No rashes Neurological: Normal strength at 5/5 x4 extr - Studies Medications List Reviewed: Yes Assessment And Plan - Current Problems (Diagnosis) (1) Pneumonia due to COVID-19 virus Current Visit: Yes Status: Acute (2) Acute respiratory failure with hypoxia Current Visit: Yes Status: Acute Physician Review Additional Text: Assessment Bilateral COVID-19 pneumonia with hypoxia Diabetes mellitus type 2, gvg-poofrmm-gzrzjqvct with hyperglycemia Obesity, BMI 33 Plan Bilateral COVID-19 pneumonia with hypoxia: . continue high dose solumedrol. s/p Remdesivir. pulmonology following wean FiO2 as tolerated. continue to monitor CRP/ferritin. On Aldactone. Diabetes mellitus type 2 oje-efpkljz-rhgvfvgrz with hyperglycemia: Blood glucose readings are stable with current Lantus dose and insulin sliding scale. A1c 7.8. Patient also on metformin. VTE: Eliquis
[2020-05-17] MEDS: DULERA 100/5 (MOMETASONE/FORMOTEROL) INHALER IH SCH ×2 (14:38→21:00)
[2020-05-17] MEDS: METHYLPRED NA SUC 80 MG in NA CHLORIDE 0.9% 100 ML IV SCH (17:03)
[2020-05-17] MEDS: MELATONIN 5 MG TABLET PO SCH (21:00)
[2020-05-17] MEDS ORDERED: DULERA 100/5 (MOMETASONE/FORMOTEROL) INHALER IH SCH (21:00)
[2020-05-18] MEDS: METHYLPRED NA SUC 80 MG in NA CHLORIDE 0.9% 100 ML IV SCH ×3 (00:25→17:32)
[2020-05-18] MEDS: HYDROCODONE/CHLORPHEN 5 ML/OSYR PO PRN (01:00)
[2020-05-18] MEDS ORDERED: BENZONATATE 100 MG CAP PO ONE (02:14)
[2020-05-18 04:09] LABS: Absolute Lymphocytes (CBC) 0.4 K/uL (0.7-4.9); Basophils % 0.2 % (0-1.3); Hematocrit 44.2 % (39.6-49.0); Lymphocytes % 1.3 % (15.3-44.8); RBC Red Blood Cell Count 5.12 M/uL (4.33-5.43)
[2020-05-18 04:34] LABS: C-Reactive Protein 34.9 mg/L (<3.00); Ferritin 1467.7 ng/mL (26-388)
[2020-05-18 06:44] LABS: Blood Morphology Comment NOT SEEN (NOT SEEN); Platelet Estimate ADEQ
[2020-05-18] MEDS: INSULIN -REGULAR HUMAN 50 UNIT/0.5 ML ML SQ SCH ×4 (07:30→21:00)
[2020-05-18] MEDS: ASCORBIC ACID 500 MG TABLET PO SCH ×3 (08:53→21:20)
[2020-05-18] MEDS: METFORMIN ER 500 MG TAB PO SCH ×2 (08:53→21:20)
[2020-05-18] MEDS: ZINC SULFATE 220 MG CAP PO SCH (08:53)
[2020-05-18] MEDS: VITAMIN D 1000 UNIT TAB PO SCH (08:53)
[2020-05-18] MEDS: levoFLOXacin 500 MG TAB PO SCH (08:53)
[2020-05-18] MEDS: SPIRONOLACTONE 25 MG TABLET PO SCH (08:54)
[2020-05-18] MEDS: INSULIN GLARGINE 100 UNITS/ML SQ SCH ×2 (08:55→21:20)
[2020-05-18] MEDS: APIXABAN 5 MG TABLET PO SCH ×2 (08:55→21:20)
[2020-05-18] MEDS: ASPIRIN EC 81 MG TAB PO SCH (08:55)
[2020-05-18] MEDS: SITAGLIPTIN PHOS 100 MG TAB PO SCH (08:55)
[2020-05-18] MEDS: THIAMINE HCL 100 MG TABLET PO SCH (08:55)
[2020-05-18] MEDS: DULERA 100/5 (MOMETASONE/FORMOTEROL) INHALER IH SCH ×2 (08:56→21:00)
[2020-05-18] MEDS ORDERED: VANCOMYCIN 2 GM in NA CHLORIDE 0.9% 500 ML IV SCH (11:00)
[2020-05-18] MEDS: FLUCONAZOLE 100 MG TAB PO SCH (11:27)
[2020-05-18] MEDS: Meropenem 500 MG in NA CHLORIDE 0.9% 100 ML IV SCH ×2 (11:27→16:23)
[2020-05-18] MEDS ORDERED: VANCOMYCIN 3 GM in NA CHLORIDE 0.9% 500 ML IV ONE (12:00)
--- NOTE | 2020-05-18 12:19 | P.PN ---
Subjective Date of Service: 05/18/20 Primary Care Provider: [facility] Chief Complaint: Respiratory failure Patient reports no change in symptoms. He stated he is still short of breath with exertion. Leukocytosis has trended up to 30,000 Patient still requiring BiPAP and high-flow oxygen and high percent FiO2 Ferritin level also remain high. Physical Examination - Vital Signs Temperature: 97.2 F Blood Pressure: 120/72 Pulse: 70 Respirations: 26 Pulse Ox (%): 89 - Physical Exam General: Alert, Mild distress Respiratory: Diminished, Crackles/rales Cardiovascular: Regular rate/rhythm, Normal S1 S2 Gastrointestinal: Soft and benign, Non-distended Musculoskeletal: No swelling Integumentary: No rashes Neurological: Other (No focal deficit) - Studies Medications List Reviewed: Yes Assessment And Plan - Current Problems (Diagnosis) (1) Pneumonia due to COVID-19 virus Current Visit: Yes Status: Acute (2) Acute respiratory failure with hypoxia Current Visit: Yes Status: Acute Physician Review Additional Text: Assessment Bilateral COVID-19 pneumonia with hypoxia Diabetes mellitus type 2, kyi-gfizxwy-tmozsybjx with hyperglycemia Obesity, BMI 33 Plan Bilateral COVID-19 pneumonia with hypoxia: . Case discussed with Pulmonary-Dr. Garcia. There is a concern for bacterial super infection. Repeat chest x-ray shows some improvement in the infiltrates. Will start patient on meropenem, vancomycin and Diflucan per Dr. Garcia recommendation. Continue IV steroid. Titrate FiO2. Keep FiO2 as low as possible. BiPAP and HFNC as tolerated. s/p Remdesivir. pulmonology following continue to monitor CRP/ferritin. On Aldactone. Diabetes mellitus type 2 bmx-indfvlp-fsjvvrhpg with hyperglycemia: Blood glucose readings are stable with current Lantus dose and insulin sliding scale. A1c 7.8. Patient also on metformin. VTE: Eliquis
[2020-05-18] MEDS ORDERED: Meropenem 500 MG VIAL IV SCH (17:00)
[2020-05-18] MEDS: IVERMECTIN 3 MG TABS PO SCH (17:31)
--- NOTE | 2020-05-18 19:02 | P.PN ---
Subjective Date of Service: 05/18/20 Primary Care Provider: [facility] Chief Complaint: Respiratory failure He feels better although still very hypoxic desat on minimal exertion coughing Review of Systems General: Weakness Respiratory: Cough, Shortness of Breath Physical Examination - Vital Signs Temperature: 97.3 F Blood Pressure: 126/79 Pulse: 77 Respirations: 31 Pulse Ox (%): 91 - Studies Medications List Reviewed: Yes Assessment & Plan - Problems (Diagnosis) (1) 2018 novel coronavirus detected Current Visit: Yes Status: Acute Plan: Respiratory failure from steve virus continue with present medication of also started patient on invermectin. patient is requiring high doses of steroids white count elevated blower antibiotic coverage with meropenem vancomycin also Diflucan I have ordered chest x-ray ferritin levels this is significantly elevated on maximum therapy
[2020-05-18] MEDS: MELATONIN 5 MG TABLET PO SCH (21:00)
[2020-05-18] MEDS: ATORVASTATIN 40 MG TAB PO SCH (21:20)
[2020-05-19] MEDS: Meropenem 500 MG in NA CHLORIDE 0.9% 100 ML IV SCH ×3 (00:45→16:28)
[2020-05-19] MEDS: VANCOMYCIN 2 GM in NA CHLORIDE 0.9% 500 ML IV SCH ×2 (00:45→11:19)
[2020-05-19] MEDS: METHYLPRED NA SUC 80 MG in NA CHLORIDE 0.9% 100 ML IV SCH (00:46)
[2020-05-19 04:02] LABS: Absolute Lymphocytes (CBC) 0.3 K/uL (0.7-4.9); Basophils % 0.4 % (0-1.3); Hematocrit 40.8 % (39.6-49.0); Lymphocytes % 1.1 % (15.3-44.8); MPV 8.9 fL (7.6-11.3); RBC Red Blood Cell Count 4.79 M/uL (4.33-5.43)
[2020-05-19 04:19] LABS: BUN Blood Urea Nitrogen 23 mg/dL (7-18); Bicarbonate 28 mmol/L (21-32); Glucose Level 85 mg/dL (74-106); Potassium 4.1 mmol/L (3.5-5.1); Sodium Level 136 mmol/L (136-145)
[2020-05-19] MEDS: INSULIN -REGULAR HUMAN 50 UNIT/0.5 ML ML SQ SCH ×4 (07:30→21:00)
[2020-05-19] MEDS: INSULIN GLARGINE 100 UNITS/ML SQ SCH ×2 (08:42→21:24)
[2020-05-19] MEDS: FLUCONAZOLE 100 MG TAB PO SCH (08:42)
[2020-05-19] MEDS: METFORMIN ER 500 MG TAB PO SCH ×2 (08:42→21:25)
[2020-05-19] MEDS: ZINC SULFATE 220 MG CAP PO SCH (08:42)
[2020-05-19] MEDS: VITAMIN D 1000 UNIT TAB PO SCH (08:42)
[2020-05-19] MEDS: APIXABAN 5 MG TABLET PO SCH ×2 (08:43→21:25)
[2020-05-19] MEDS: ASPIRIN EC 81 MG TAB PO SCH (08:43)
[2020-05-19] MEDS: SPIRONOLACTONE 25 MG TABLET PO SCH (08:43)
[2020-05-19] MEDS: DULERA 100/5 (MOMETASONE/FORMOTEROL) INHALER IH SCH ×3 (08:43→21:29)
[2020-05-19] MEDS: SITAGLIPTIN PHOS 100 MG TAB PO SCH (08:43)
[2020-05-19] MEDS: ASCORBIC ACID 500 MG TABLET PO SCH ×3 (08:43→21:25)
--- NOTE | 2020-05-19 08:44 | RAD REPORT ---
EXAM DESCRIPTION: RAD - Chest Single View - 05/19/2020 7:01 am CLINICAL HISTORY: [place] virus pneumonia Chest pain. COMPARISON: Chest Single View dated 05/16/2020; Chest Single View dated 05/12/2020; Chest Single View dated 05/06/2020 FINDINGS: Portable technique limits examination quality. Since 05/16/2020, slight worsening in lung aeration is noted. The heart is normal in size. No displac ed fractures. IMPRESSION: Slight worsening in lung aeration seen since comparative study.
[2020-05-19] MEDS: THIAMINE HCL 100 MG TABLET PO SCH (09:00)
[2020-05-19] MEDS: IVERMECTIN 3 MG TABS PO SCH (09:28)
[2020-05-19] MEDS: METHYLPREDNISOLONE 125 MG INJ IV SCH ×2 (09:54→16:29)
[2020-05-19] MEDS ORDERED: D50W 25 GM/50 ML VIAL IV PRN (16:50)
--- NOTE | 2020-05-19 16:54 | P.PN ---
Subjective Date of Service: 05/19/20 Primary Care Provider: [place] bibiana Chief Complaint: Respiratory failure Patient reports no change in symptoms. He stated he feels short of breath with exertion. Leukocytosis trended down from yesterday. Patient still requiring BiPAP and high-flow oxygen and high percent FiO2 Physical Examination - Vital Signs Temperature: 97.6 F Blood Pressure: 107/63 Pulse: 81 Respirations: 20 Pulse Ox (%): 85 - Physical Exam General: Alert, Mild distress Neck: JVD not distended Respiratory: Crackles/rales (Bibasilar) Cardiovascular: No edema, Regular rate/rhythm, Normal S1 S2 Gastrointestinal: Soft and benign, Non-distended, No tenderness Musculoskeletal: No swelling, No tenderness Integumentary: No rashes Neurological: Normal speech, Normal strength at 5/5 x4 extr - Studies Medications List Reviewed: Yes Assessment And Plan - Current Problems (Diagnosis) (1) Pneumonia due to COVID-19 virus Current Visit: Yes Status: Acute (2) Acute respiratory failure with hypoxia Current Visit: Yes Status: Acute (3) Leukocytosis Current Visit: Yes Status: Acute Physician Review Additional Text: Assessment Bilateral COVID-19 pneumonia with hypoxia Diabetes mellitus type 2, giz-ssltfrf-pnhsrrkid with hyperglycemia Obesity, BMI 33 Plan Bilateral COVID-19 pneumonia with hypoxia: . Case discussed with Pulmonary-Dr. Garcia. There is a concern for bacterial super infection. Continue meropenem, vancomycin and Diflucan per Dr. Garcia recommendation. Continue IV steroid. Titrate FiO2. Keep FiO2 as low as possible. BiPAP and HFNC as tolerated. s/p Remdesivir. pulmonology following and titrating steroid. continue to monitor CRP/ferritin. On Aldactone. Diabetes mellitus type 2 nqr-linmlwe-poropkgca with hyperglycemia: Blood glucose readings are stable with current Lantus dose and insulin sliding scale. A1c 7.8. Patient also on metformin. VTE: Eliquis
[2020-05-19] MEDS: ATORVASTATIN 40 MG TAB PO SCH (21:25)
[2020-05-19] MEDS: MELATONIN 5 MG TABLET PO SCH (21:26)
[2020-05-20] MEDS: VANCOMYCIN 2 GM in NA CHLORIDE 0.9% 500 ML IV SCH ×3 (00:24→22:47)
[2020-05-20] MEDS: METHYLPREDNISOLONE 125 MG INJ IV SCH ×3 (00:26→22:03)
[2020-05-20] MEDS: Meropenem 500 MG in NA CHLORIDE 0.9% 100 ML IV SCH ×3 (02:44→17:13)
[2020-05-20 03:50] LABS: Absolute Lymphocytes (CBC) 0.3 K/uL (0.7-4.9); Basophils % 0.1 % (0-1.3); Hematocrit 40.5 % (39.6-49.0); Lymphocytes % 1.6 % (15.3-44.8); MPV 8.6 fL (7.6-11.3); RBC Red Blood Cell Count 4.71 M/uL (4.33-5.43)
[2020-05-20 04:19] LABS: BUN Blood Urea Nitrogen 24 mg/dL (7-18); Bicarbonate 28 mmol/L (21-32); Ferritin 1632.9 ng/mL (26-388); Glucose Level 101 mg/dL (74-106); Potassium 4.2 mmol/L (3.5-5.1); Sodium Level 139 mmol/L (136-145)
[2020-05-20] MEDS: INSULIN -REGULAR HUMAN 50 UNIT/0.5 ML ML SQ SCH ×4 (07:30→21:00)
[2020-05-20] MEDS: METFORMIN ER 500 MG TAB PO SCH ×2 (08:43→22:03)
[2020-05-20] MEDS: ASPIRIN EC 81 MG TAB PO SCH (08:43)
[2020-05-20] MEDS: ZINC SULFATE 220 MG CAP PO SCH (08:43)
[2020-05-20] MEDS: VITAMIN D 1000 UNIT TAB PO SCH (08:43)
[2020-05-20] MEDS: FLUCONAZOLE 100 MG TAB PO SCH (08:44)
[2020-05-20] MEDS: THIAMINE HCL 100 MG TABLET PO SCH (08:44)
[2020-05-20] MEDS: SITAGLIPTIN PHOS 100 MG TAB PO SCH (08:44)
[2020-05-20] MEDS: SPIRONOLACTONE 25 MG TABLET PO SCH (08:44)
[2020-05-20] MEDS: ASCORBIC ACID 500 MG TABLET PO SCH ×3 (08:45→22:03)
[2020-05-20] MEDS: INSULIN GLARGINE 100 UNITS/ML SQ SCH ×2 (08:45→22:02)
[2020-05-20] MEDS: IVERMECTIN 3 MG TABS PO SCH (08:45)
[2020-05-20] MEDS: DULERA 100/5 (MOMETASONE/FORMOTEROL) INHALER IH SCH ×2 (08:46→21:00)
[2020-05-20] MEDS: APIXABAN 5 MG TABLET PO SCH ×2 (08:46→22:03)
[2020-05-20] MEDS: HYDROCODONE/CHLORPHEN 5 ML/OSYR PO PRN ×2 (10:47→22:48)
--- NOTE | 2020-05-20 12:53 | P.PN ---
Subjective Date of Service: 05/20/20 Primary Care Provider: BARBARA mccarty Chief Complaint: Respiratory failure No change still symptomatic still requiring high concentrations of oxygen Review of Systems General: Weakness Respiratory: Cough, Shortness of Breath Physical Examination - Vital Signs Temperature: 98.3 F Blood Pressure: 108/61 Pulse: 63 Respirations: 22 Pulse Ox (%): 91 - Physical Exam General: Alert, Moderate distress Respiratory: Clear to auscultation bilaterally, Diminished Cardiovascular: No edema, Regular rate/rhythm - Studies Medications List Reviewed: Yes Assessment & Plan - Problems (Diagnosis) (1) 2019 novel coronavirus detected Current Visit: Yes Status: Acute Plan: Respiratory failure no change decrease the dose of Solu-Medrol to 80 mg IV Q 12 at the level is still significantly elevate at count is mildly elevated cultures are so far negative vital signs stable she was well controlled reduce the dose of insulin
--- NOTE | 2020-05-20 18:54 | P.PN ---
Subjective Date of Service: 05/20/20 Primary Care Provider: BARBARA mccarty Chief Complaint: Respiratory failure Subjective: No new changes (feels about the same, gets short of breath walking to bathroom, trying to prone as often / long as he can tolerate. +generalized weakness) Physical Examination - Vital Signs Temperature: 97.9 F Blood Pressure: 96/53 Pulse: 73 Respirations: 20 Pulse Ox (%): 91 - Studies Medications List Reviewed: Yes Assessment & Plan Physician Review Additional Text: Assessment acute respiratory failure secondary to Bilateral COVID-19 pneumonia with hypoxia leukocytosis Diabetes mellitus type 2, nuc-ixarzyu-srfhoanzc with hyperglycemia Obesity, BMI 33 Plan acute respiratory failure secondary to Bilateral COVID-19 pneumonia with hypoxia leukocytosis There is a concern for bacterial super infection., on meropenem, vanc, dilflucan per pulm recommendation Continue IV steroid - decreased todaay Titrate FiO2. Keep FiO2 as low as possible. BiPAP and HFNC as tolerated. s/p Remdesivir and conv plasama continue to monitor CRP/ferritin. On Aldactone. Diabetes mellitus type 2 sba-vzmvwhb-lwewdgpoc with hyperglycemia: Blood glucose readings are stable, continue SSI VTE: [place]by Dispo: working on LTAC, pt with no significant improvement in several days Time Spent Managing Pts Care (In Minutes): 55
[2020-05-20] MEDS: ATORVASTATIN 40 MG TAB PO SCH (22:03)
[2020-05-20] MEDS: MELATONIN 5 MG TABLET PO SCH (22:04)
[2020-05-21] MEDS: Meropenem 500 MG in NA CHLORIDE 0.9% 100 ML IV SCH ×2 (02:05→09:26)
[2020-05-21 03:55] LABS: Absolute Lymphocytes (CBC) 0.3 K/uL (0.7-4.9); Basophils % 0.1 % (0-1.3); Hematocrit 41.7 % (39.6-49.0); Lymphocytes % 1.3 % (15.3-44.8); MPV 8.5 fL (7.6-11.3); RBC Red Blood Cell Count 4.81 M/uL (4.33-5.43)
[2020-05-21 04:33] LABS: ALT/SGPT 39 U/L (12-78); AST/SGOT 26 U/L (15-37); Albumin 1.9 g/dL (3.4-5.0); Alkaline Phosphatase 119 U/L (45-117); BUN Blood Urea Nitrogen 29 mg/dL (7-18); Bicarbonate 29 mmol/L (21-32); Bilirubin Total 0.6 mg/dL (0.2-1.0); Ferritin 1454.7 ng/mL (26-388); Glucose Level 146 mg/dL (74-106); Magnesium 2.1 mg/dL (1.8-2.4); Potassium 4.4 mmol/L (3.5-5.1); Protein, Total 5.7 g/dL (6.4-8.2); Sodium Level 139 mmol/L (136-145)
[2020-05-21] MEDS: INSULIN -REGULAR HUMAN 50 UNIT/0.5 ML ML SQ SCH ×4 (07:30→21:00)
[2020-05-21] MEDS: DULERA 100/5 (MOMETASONE/FORMOTEROL) INHALER IH SCH ×2 (09:00→20:03)
[2020-05-21] MEDS ORDERED: FUROSEMIDE 20 MG/ 2ML VIAL IV SCH (09:00)
[2020-05-21] MEDS: THIAMINE HCL 100 MG TABLET PO SCH (09:00)
[2020-05-21] MEDS: SITAGLIPTIN PHOS 100 MG TAB PO SCH (09:27)
[2020-05-21] MEDS: FLUCONAZOLE 100 MG TAB PO SCH (09:27)
[2020-05-21] MEDS: IVERMECTIN 3 MG TABS PO SCH (09:27)
[2020-05-21] MEDS: ZINC SULFATE 220 MG CAP PO SCH (09:27)
[2020-05-21] MEDS: METHYLPREDNISOLONE 125 MG INJ IV SCH ×2 (09:28→20:02)
[2020-05-21] MEDS: SPIRONOLACTONE 25 MG TABLET PO SCH (09:28)
[2020-05-21] MEDS: ASCORBIC ACID 500 MG TABLET PO SCH ×3 (09:28→20:02)
[2020-05-21] MEDS: APIXABAN 5 MG TABLET PO SCH ×2 (09:29→20:02)
[2020-05-21] MEDS: INSULIN GLARGINE 100 UNITS/ML SQ SCH ×2 (09:29→21:00)
[2020-05-21] MEDS: METFORMIN ER 500 MG TAB PO SCH ×2 (09:29→20:02)
[2020-05-21] MEDS: ASPIRIN EC 81 MG TAB PO SCH (09:29)
[2020-05-21] MEDS: VITAMIN D 1000 UNIT TAB PO SCH (09:31)
[2020-05-21] MEDS: VANCOMYCIN 2 GM in NA CHLORIDE 0.9% 500 ML IV SCH (12:10)
--- NOTE | 2020-05-21 12:40 | P.PN ---
Subjective Date of Service: 05/21/20 Primary Care Provider: BARBARA mccarty Chief Complaint: Respiratory failure Feeling better oxygen levels declining white count is still stable Review of Systems General: Weakness Respiratory: Shortness of Breath Physical Examination - Vital Signs Temperature: 97.2 F Blood Pressure: 92/42 Pulse: 63 Respirations: 20 Pulse Ox (%): 91 - Studies Medications List Reviewed: Yes Assessment & Plan - Problems (Diagnosis) (1) 2019 novel coronavirus detected Current Visit: Yes Status: Acute Plan: Respiratory failure continue with present therapy prone positioning oxygen requirements are declining white count elevated doubt sepsis blood cultures likely contaminant Dc meropenem vancomycin currently on BiPAP what his elevated white gone may be side effect of the steroids that have been reduced
[2020-05-21] MEDS: HYDROCODONE/CHLORPHEN 5 ML/OSYR PO PRN (13:10)
[2020-05-21] MEDS ORDERED: D50W 25 GM/50 ML VIAL IV ONE (18:00)
--- NOTE | 2020-05-21 19:27 | P.PN ---
Subjective Date of Service: 05/21/20 Primary Care Provider: BARBARA mccarty Chief Complaint: Respiratory failure Subjective: No new changes (feeling about the same, reports SOB when sitting up / walking to bathroom) Review of Systems 10-point ROS is otherwise unremarkable Physical Examination - Vital Signs Temperature: 98.0 F Blood Pressure: 112/64 Pulse: 75 Respirations: 19 Pulse Ox (%): 90 - Physical Exam General: Alert, Mild distress HEENT: Sclerae nonicteric Respiratory: Other (off/on BIPAP) Cardiovascular: No edema Gastrointestinal: Soft and benign, No tenderness Musculoskeletal: No tenderness Integumentary: No rashes - Studies Medications List Reviewed: Yes Assessment & Plan Physician Review Additional Text: Assessment acute respiratory failure secondary to Bilateral COVID-19 pneumonia with hypoxia leukocytosis Diabetes mellitus type 2, tpq-weixact-bmgklxlkv with hyperglycemia Obesity, BMI 33 Plan acute respiratory failure secondary to Bilateral COVID-19 pneumonia with hypoxia leukocytosis There was concern for bacterial super infection and was covered with meropenem/vanc/diflucan, dc'd today Continue IV steroid Titrate FiO2. Keep FiO2 as low as possible. BiPAP and HFNC as tolerated. s/p Remdesivir and conv plasama continue to monitor CRP/ferritin. guarded prognosis, difficult to wean BP < 100systolic at times, will dc spironolactone Diabetes mellitus type 2 etz-rvtegif-bkpqvyqua with hyperglycemia: Blood glucose readings are stable, continue SSI VTE: Glennais Dispo: working on LTAC, pt with no significant improvement in several days long discussion with today regarding prognosis and treatment Time Spent Managing Pts Care (In Minutes): 40
[2020-05-21] MEDS: LORAZEPAM 1 MG TABLET PO PRN (20:02)
[2020-05-21] MEDS: ATORVASTATIN 40 MG TAB PO SCH (20:02)
[2020-05-21] MEDS: MELATONIN 5 MG TABLET PO SCH (20:02)
[2020-05-22 03:47] LABS: Absolute Lymphocytes (CBC) 0.3 K/uL (0.7-4.9); Basophils % 0.2 % (0-1.3); Hematocrit 43.5 % (39.6-49.0); Lymphocytes % 1.8 % (15.3-44.8); MPV 8.5 fL (7.6-11.3); RBC Red Blood Cell Count 5.02 M/uL (4.33-5.43)
[2020-05-22 04:42] LABS: BUN Blood Urea Nitrogen 25 mg/dL (7-18); Bicarbonate 31 mmol/L (21-32); Ferritin 1410.6 ng/mL (26-388); Glucose Level 181 mg/dL (74-106); Magnesium 2.3 mg/dL (1.8-2.4); Potassium 4.4 mmol/L (3.5-5.1); Sodium Level 136 mmol/L (136-145)
[2020-05-22] MEDS: ASCORBIC ACID 500 MG TABLET PO SCH ×3 (08:48→20:31)
[2020-05-22] MEDS: APIXABAN 5 MG TABLET PO SCH ×2 (08:48→20:31)
[2020-05-22] MEDS: SITAGLIPTIN PHOS 100 MG TAB PO SCH (08:48)
[2020-05-22] MEDS: ZINC SULFATE 220 MG CAP PO SCH (08:48)
[2020-05-22] MEDS: ASPIRIN EC 81 MG TAB PO SCH (08:48)
[2020-05-22] MEDS: VITAMIN D 1000 UNIT TAB PO SCH (08:48)
[2020-05-22] MEDS: METFORMIN ER 500 MG TAB PO SCH ×2 (08:48→20:30)
[2020-05-22] MEDS: FLUCONAZOLE 100 MG TAB PO SCH (08:48)
[2020-05-22] MEDS: INSULIN -REGULAR HUMAN 50 UNIT/0.5 ML ML SQ SCH ×4 (08:49→21:00)
[2020-05-22] MEDS: INSULIN GLARGINE 100 UNITS/ML SQ SCH ×2 (08:49→21:41)
[2020-05-22] MEDS: METHYLPREDNISOLONE 125 MG INJ IV SCH (08:49)
[2020-05-22] MEDS: THIAMINE HCL 100 MG TABLET PO SCH (09:00)
[2020-05-22] MEDS: DULERA 100/5 (MOMETASONE/FORMOTEROL) INHALER IH SCH ×3 (09:00→20:31)
[2020-05-22] MEDS: IVERMECTIN 3 MG TABS PO SCH (09:47)
--- NOTE | 2020-05-22 10:45 | RAD REPORT ---
EXAM DESCRIPTION: RAD - Chest Single View - 05/22/2020 10:37 am CLINICAL HISTORY: follow-up Chest pain. COMPARISON: Chest Single View dated 05/19/2020; Chest Single View dated 05/16/2020; Chest Single View da reginaldo 05/12/2020; Chest Single View dated 05/06/2020 FINDINGS: Portable technique limits examination quality. Moderate bilateral are pulmonary opacities are present, greater on the left appearing essentially sta ble. The heart is mildly prominent in size. No displaced fractures. IMPRESSION: Stable chest since 05/19/2020.
--- NOTE | 2020-05-22 13:38 | P.PN ---
Subjective Date of Service: 05/22/20 Primary Care Provider: BARBARA mccarty Chief Complaint: Respiratory failure No change patient frustrated still hypoxic requiring high concentrations of oxygen Review of Systems General: Weakness Respiratory: Shortness of Breath Physical Examination - Vital Signs Temperature: 97.6 F Blood Pressure: 104/57 Pulse: 68 Respirations: 18 Pulse Ox (%): 90 - Studies Medications List Reviewed: Yes Assessment & Plan - Problems (Diagnosis) (1) 2019 novel coronavirus detected Current Visit: Yes Status: Acute Plan: Respiratory failure the white count is probably due to high dose of steroid he has been on high doses for quite some time without any change reduce the dose is 40 mg IV Q 12 continue with present treatment chemistries reviewed blood sugar satisfactory chest x-ray no change
--- NOTE | 2020-05-22 18:14 | P.PN ---
Subjective Date of Service: 05/22/20 Primary Care Provider: BARBARA mccarty Chief Complaint: Respiratory failure Subjective: No new changes (feeling about the same today, maybe slightly better, still with SOB / desats with minimal movement) Review of Systems 10-point ROS is otherwise unremarkable Physical Examination - Vital Signs Temperature: 97 F Blood Pressure: 113/69 Pulse: 76 Respirations: 18 Pulse Ox (%): 87 - Physical Exam General: Alert, In no apparent distress Respiratory: Other (on BIPAP, prone position) Cardiovascular: Regular rate/rhythm Gastrointestinal: Soft and benign, No tenderness Integumentary: No rashes Neurological: Normal speech, Normal affect - Studies Medications List Reviewed: Yes Assessment & Plan Physician Review Additional Text: Assessment acute respiratory failure secondary to Bilateral COVID-19 pneumonia with hypoxia leukocytosis Diabetes mellitus type 2, zfa-klzktmh-suxsgjcdv with hyperglycemia Obesity, BMI 33 Plan acute respiratory failure secondary to Bilateral COVID-19 pneumonia with hypoxia leukocytosis abx dc'd - initially some concern for bacterial superinfection however cultures negative / contaminant Continue IV steroid. Titrate FiO2. Keep FiO2 as low as possible. BiPAP and HFNC as tolerated. s/p Remdesivir and conv plasama continue to monitor CRP/ferritin. guarded prognosis, difficult to wean BP < 100systolic at times, dc'd spironolactone on 05/21 Diabetes mellitus type 2 hpc-monjqsj-dyuquocbq with hyperglycemia: Blood glucose readings are stable, continue SSI VTE: Colby Dispo: working on LTAC, pt with no significant improvement in several days Time Spent Managing Pts Care (In Minutes): 35
[2020-05-22] MEDS: ATORVASTATIN 40 MG TAB PO SCH (20:30)
[2020-05-22] MEDS: HYDROCODONE/CHLORPHEN 5 ML/OSYR PO PRN (20:30)
[2020-05-22] MEDS: MELATONIN 5 MG TABLET PO SCH (20:31)
[2020-05-22] MEDS: METHYLPREDNISOLONE 40 MG INJ IV SCH (20:31)
[2020-05-23 04:23] LABS: C-Reactive Protein 8.65 mg/L (<3.00); Ferritin 1474.7 ng/mL (26-388)
[2020-05-23] MEDS: INSULIN -REGULAR HUMAN 50 UNIT/0.5 ML ML SQ SCH ×4 (07:30→22:05)
[2020-05-23] MEDS: DULERA 100/5 (MOMETASONE/FORMOTEROL) INHALER IH SCH ×2 (09:00→21:00)
[2020-05-23] MEDS: INSULIN GLARGINE 100 UNITS/ML SQ SCH ×2 (09:00→23:17)
[2020-05-23] MEDS: METFORMIN ER 500 MG TAB PO SCH ×2 (09:58→21:44)
[2020-05-23] MEDS: METHYLPREDNISOLONE 40 MG INJ IV SCH ×2 (09:58→21:48)
[2020-05-23] MEDS: SITAGLIPTIN PHOS 100 MG TAB PO SCH (09:59)
[2020-05-23] MEDS: THIAMINE HCL 100 MG TABLET PO SCH (09:59)
[2020-05-23] MEDS: ASCORBIC ACID 500 MG TABLET PO SCH ×3 (09:59→21:44)
[2020-05-23] MEDS: APIXABAN 5 MG TABLET PO SCH ×2 (09:59→21:45)
[2020-05-23] MEDS: ZINC SULFATE 220 MG CAP PO SCH (09:59)
[2020-05-23] MEDS: FLUCONAZOLE 100 MG TAB PO SCH (09:59)
[2020-05-23] MEDS: VITAMIN D 1000 UNIT TAB PO SCH (09:59)
[2020-05-23] MEDS: ASPIRIN EC 81 MG TAB PO SCH (10:04)
--- NOTE | 2020-05-23 11:52 | P.PN ---
Subjective Date of Service: 05/23/20 Primary Care Provider: BARBARA mccarty Chief Complaint: Respiratory failure No change still requiring very high concentrations of oxygen Review of Systems General: Weakness Respiratory: Shortness of Breath Physical Examination - Vital Signs Temperature: 97.0 F Blood Pressure: 113/64 Pulse: 80 Respirations: 28 Pulse Ox (%): 87 - Studies Medications List Reviewed: Yes Assessment & Plan - Problems (Diagnosis) (1) 2019 novel coronavirus detected Current Visit: Yes Status: Acute Plan: Respiratory failure no change in patient's condition ferritin levels have not changed still very high he is on maximum oxygen concentration white count is declining I suspect is from the steroid use of increases melatonin for possible anti inflammatory effect labs reviewed
[2020-05-23 13:43] LABS: Blood Gas Oxyhemoglobin 88.9 % (94-97); Blood O2 Saturation 90.6 % (92-98.5)
[2020-05-23] MEDS: MELATONIN 5 MG TABLET PO SCH ×2 (15:51→21:46)
[2020-05-23] MEDS ORDERED: MELATONIN 3 MG TABLET PO SCH (21:00)
[2020-05-23] MEDS: ATORVASTATIN 40 MG TAB PO SCH (21:44)
--- NOTE | 2020-05-23 23:08 | P.PN ---
Subjective Date of Service: 05/23/20 Primary Care Provider: BARBARA mccarty Chief Complaint: Respiratory failure Subjective: No new changes (continues to require FiO2 - 100% on BIPAP, desats quickly, takes some time to get back to >88%. Feels about the same.) Review of Systems 10-point ROS is otherwise unremarkable Physical Examination - Vital Signs Temperature: 97.3 F Blood Pressure: 102/59 Pulse: 71 Respirations: 28 Pulse Ox (%): 92 - Physical Exam General: Alert, In no apparent distress HEENT: Sclerae nonicteric Respiratory: Other (very diminished breath sounds throughout lung severino, on BIPAP) Cardiovascular: No edema, Regular rate/rhythm Gastrointestinal: Soft and benign, No tenderness Musculoskeletal: No tenderness Integumentary: No rashes, No significant lesion - Studies Medications List Reviewed: Yes Assessment & Plan Physician Review Additional Text: Assessment acute respiratory failure secondary to Bilateral COVID-19 pneumonia with hypoxia leukocytosis Diabetes mellitus type 2, rvi-nxrcyhw-hkgyujexw with hyperglycemia Obesity, BMI 33 Plan acute respiratory failure secondary to Bilateral COVID-19 pneumonia with hypoxia leukocytosis abx dc'd - initially some concern for bacterial superinfection however cultures negative / contaminant continues on diflucan, given prolonged steroid use Continue IV steroid. down to 40 q12h, CRP improving, ferritin remaining elevated - will check q48hr to minimize lab draws Titrate FiO2. Keep FiO2 as low as possible. BiPAP and HFNC as tolerated. s/p Remdesivir and conv plasama guarded prognosis, difficult to wean BP < 100systolic at times, dc'd spironolactone on 05/21 Diabetes mellitus type 2 pzh-nlpblln-fmyedsbsy with hyperglycemia: Blood glucose readings are stable, continue SSI, decreased long acting due to low glc readings and reduction in steroid dosage, will adjust as necessary VTE: Colby Dispo: working on LTAC, pt with no significant improvement in several days, insurance denied LTAC, will call peer to peer Time Spent Managing Pts Care (In Minutes): 35
[2020-05-24] MEDS: INSULIN -REGULAR HUMAN 50 UNIT/0.5 ML ML SQ SCH ×3 (07:30→16:30)
--- NOTE | 2020-05-24 08:44 | RAD REPORT ---
EXAM DESCRIPTION: RAD - Chest Single View - 05/24/2020 6:26 am CLINICAL HISTORY: SOB, COVID COMPARISON: Portable May 22 TECHNIQUE: AP portable chest image was obtained 05/24/2020 6:26 am . FINDINGS: Lung volumes are low. Bilateral left greater than right infiltrates have not changed from the comparison study. Heart and vasculature are normal. No measurable pleural effusion and no pneumot horax. No acute bony abnormality seen. No acute aortic findings suspected. IMPRESSION: Stable bilateral pneumonia pattern since May 22.
[2020-05-24] MEDS: DULERA 100/5 (MOMETASONE/FORMOTEROL) INHALER IH SCH ×2 (09:00→21:00)
[2020-05-24] MEDS: VITAMIN D 1000 UNIT TAB PO SCH (09:00)
[2020-05-24] MEDS: THIAMINE HCL 100 MG TABLET PO SCH (09:00)
[2020-05-24] MEDS: MELATONIN 5 MG TABLET PO SCH ×2 (10:31→21:13)
[2020-05-24] MEDS: ASPIRIN EC 81 MG TAB PO SCH (10:32)
[2020-05-24] MEDS: SITAGLIPTIN PHOS 100 MG TAB PO SCH (10:32)
[2020-05-24] MEDS: METHYLPREDNISOLONE 40 MG INJ IV SCH ×2 (10:32→21:14)
[2020-05-24] MEDS: FLUCONAZOLE 100 MG TAB PO SCH (10:32)
[2020-05-24] MEDS: APIXABAN 5 MG TABLET PO SCH ×2 (10:33→21:12)
[2020-05-24] MEDS: ZINC SULFATE 220 MG CAP PO SCH (10:33)
[2020-05-24] MEDS: METFORMIN ER 500 MG TAB PO SCH ×2 (10:33→21:00)
[2020-05-24] MEDS: ASCORBIC ACID 500 MG TABLET PO SCH ×3 (10:33→21:15)
[2020-05-24] MEDS: INSULIN GLARGINE 100 UNITS/ML SQ SCH ×2 (10:42→21:00)
[2020-05-24] MEDS ORDERED: RSI MEDICATION KIT IV ONE (14:11)
[2020-05-24] MEDS ORDERED: propofoL 1,000 MG/100 ML VIAL IV ONE (14:12)
[2020-05-24] MEDS ORDERED: NA CHLORIDE 0.9% 1,000 ML ONE (14:12)
--- NOTE | 2020-05-24 15:16 | P.PN ---
Subjective Date of Service: 05/24/20 Primary Care Provider: BARBARA mccarty Chief Complaint: Respiratory failure Subjective: Worsening (patient remains on BIPAP FIO2: 100%, SpO2 ranging from 80-90, mostly in mid 80s, tachypneic, getting tired) Review of Systems 10-point ROS is otherwise unremarkable Physical Examination - Vital Signs Temperature: 97.3 F Blood Pressure: 128/68 Pulse: 73 Respirations: 35 Pulse Ox (%): 85 - Physical Exam General: Alert, Oriented x3 HEENT: Sclerae nonicteric Respiratory: Other (diminished breath sounds throughout, labored and tachypneic on BIPAP) Cardiovascular: No edema, Regular rate/rhythm Gastrointestinal: Soft and benign, No tenderness Musculoskeletal: No tenderness Integumentary: No rashes - Studies Medications List Reviewed: Yes Assessment & Plan Physician Review Additional Text: Assessment acute respiratory failure secondary to Bilateral COVID-19 pneumonia with hypoxia leukocytosis Diabetes mellitus type 2, pnp-qgereti-cefcqfarl with hyperglycemia Obesity, BMI 33 Plan acute respiratory failure secondary to Bilateral COVID-19 pneumonia with hypoxia leukocytosis s/p Remdesivir and conv plasama abx dc'd - initially some concern for bacterial superinfection however cultures negative / contaminant continues on diflucan, given prolonged steroid use Continue IV steroid. down to 40 q12h, CRP improving, ferritin remaining elevated - will check q48hr to minimize lab draws ABG with hypoxemia, discussed with pulmonology, will consult anesthesia for intubation this afternoon family updated guarded prognosis, difficult to wean BP < 100 systolic at times, dc'd spironolactone on 05/21 Diabetes mellitus type 2 eox-bjpszcp-tvyrymaxx with hyperglycemia: Blood glucose readings are stable, continue SSI, decreased long acting due to low glc readings and reduction in steroid dosage VTE: Eliquis Dispo: working on LTAC, pt with no significant improvement in several days, insurance denied LTAC, will call peer to peer Time Spent Managing Pts Care (In Minutes): 60
[2020-05-24] MEDS ORDERED: LORazepam 2 MG/ML VIAL ONE (16:56)
[2020-05-24] MEDS ORDERED: HALOPERIDOL LACT 5 MG/ML INJ IV PRN (16:57)
[2020-05-24] MEDS ORDERED: MIDAZOLAM HCL 2 MG/2 ML INJ ONE (17:08)
[2020-05-24] MEDS ORDERED: FENTANYL CITR 100 MCG/2 ML ONE (17:08)
--- NOTE | 2020-05-24 17:25 | RAD REPORT ---
EXAM DESCRIPTION: RAD - Abdomen 1 View (KUB) - 05/24/2020 5:17 pm CLINICAL HISTORY: endotracheaL TUBE PLACEMENT COMPARISON: No comparisons FINDINGS: Feeding tube has been placed. Tubing is curled in the stomach with the tip in the medial l eft upper quadrant near the GE junction.
--- NOTE | 2020-05-24 17:26 | RAD REPORT ---
EXAM DESCRIPTION: RAD - Chest Single View - 05/24/2020 5:19 pm CLINICAL HISTORY: ETT COMPARISON: May 24 TECHNIQUE: AP portable chest image was obtained 05/24/2020 5:19 pm . FINDINGS: Endotracheal tube has been placed. Tip is T4 level mid aortic arch well above the jewell. Feeding tube has been placed and is addressed in a separate report. Mid and lower left lung field pne umonia changes are evident with patchy right base infiltrate. Lung parenchymal findings are similar t o the examination performed earlier in the day. Heart and vasculature are normal. No measurable pleur al effusion and no pneumothorax. No acute bony abnormality seen. No acute aortic findings suspected. IMPRESSION: Endotracheal tube placement in good position T4 level well above the jewell. Left greater than right bilateral infiltrates similar to earlier in the day.
[2020-05-24 17:48] LABS: Blood Gas Oxyhemoglobin 81.9 % (94-97); Blood O2 Saturation 83.6 % (92-98.5)
[2020-05-24 17:51] LABS: Arterial Blood Carboxyhemoglob 0.9 % (0-1.5); Blood Gas Oxyhemoglobin 92.7 % (94-97); Blood O2 Saturation 94.6 % (92-98.5)
[2020-05-24] MEDS: FENTANYL CITR 100 MCG/2 ML IV PRN (18:03)
[2020-05-24] MEDS: LORazepam 2 MG/ML VIAL IV PRN ×2 (18:04→18:48)
[2020-05-24] MEDS: propofoL 1,000 MG/100 ML VIAL IV PRN (18:48)
[2020-05-24] MEDS: ATORVASTATIN 40 MG TAB PO SCH (21:13)
[2020-05-24] MEDS: FAMOTIDINE 20 MG/2 ML VIAL IV SCH (21:14)
[2020-05-25] MEDS: propofoL 1,000 MG/100 ML VIAL IV PRN ×6 (00:16→23:19)
[2020-05-25] MEDS: FENTANYL CITR 100 MCG/2 ML IV PRN ×3 (02:05→19:50)
[2020-05-25 05:14] LABS: Arterial Blood Carboxyhemoglob 1.1 % (0-1.5); Blood Gas Oxyhemoglobin 88.5 % (94-97); Blood O2 Saturation 90.4 % (92-98.5)
[2020-05-25 05:45] LABS: Absolute Lymphocytes (CBC) 0.3 K/uL (0.7-4.9); Basophils % 0.3 % (0-1.3); Lymphocytes % 1.9 % (15.3-44.8); MPV 8.8 fL (7.6-11.3); RBC Red Blood Cell Count 5.39 M/uL (4.33-5.43)
[2020-05-25] MEDS: INSULIN -REGULAR HUMAN 50 UNIT/0.5 ML ML SQ SCH ×4 (06:00→17:21)
[2020-05-25 06:03] LABS: ALT/SGPT 40 U/L (12-78); AST/SGOT 23 U/L (15-37); Albumin 2.5 g/dL (3.4-5.0); Alkaline Phosphatase 117 U/L (45-117); BUN Blood Urea Nitrogen 33 mg/dL (7-18); Bicarbonate 27 mmol/L (21-32); Ferritin 1679.4 ng/mL (26-388); Glucose Level 177 mg/dL (74-106); Magnesium 2.3 mg/dL (1.8-2.4); Potassium 4.5 mmol/L (3.5-5.1); Protein, Total 6.3 g/dL (6.4-8.2); Sodium Level 134 mmol/L (136-145)
[2020-05-25 07:26] LABS: Blood Morphology Comment NOT SEEN (NOT SEEN); Platelet Estimate ADEQ
[2020-05-25] MEDS: LORazepam 2 MG/ML VIAL IV PRN ×2 (07:27→13:00)
[2020-05-25] MEDS: FAMOTIDINE 20 MG/2 ML VIAL IV SCH ×2 (08:38→20:11)
[2020-05-25] MEDS: METHYLPREDNISOLONE 40 MG INJ IV SCH ×2 (08:38→20:11)
[2020-05-25] MEDS: FLUCONAZOLE 100 MG TAB PO SCH (08:39)
[2020-05-25] MEDS: SITAGLIPTIN PHOS 100 MG TAB PO SCH (08:39)
[2020-05-25] MEDS: APIXABAN 5 MG TABLET PO SCH ×2 (08:39→20:09)
[2020-05-25] MEDS: ASCORBIC ACID 500 MG TABLET PO SCH (08:39)
[2020-05-25] MEDS: THIAMINE HCL 100 MG TABLET PO SCH (08:39)
[2020-05-25] MEDS: ZINC SULFATE 220 MG CAP PO SCH (08:39)
[2020-05-25] MEDS: ASPIRIN EC 81 MG TAB PO SCH (08:39)
[2020-05-25] MEDS: DULERA 100/5 (MOMETASONE/FORMOTEROL) INHALER IH SCH (08:40)
[2020-05-25] MEDS: INSULIN GLARGINE 100 UNITS/ML SQ SCH ×2 (08:40→20:12)
[2020-05-25] MEDS: METFORMIN ER 500 MG TAB PO SCH ×2 (09:00→20:10)
[2020-05-25] MEDS: MELATONIN 5 MG TABLET PO SCH (09:00)
[2020-05-25] MEDS ORDERED: CISATRACURIUM INJECTION 2 MG/ML (10 ML Vial) IV ONE (11:02)
--- NOTE | 2020-05-25 11:52 | RAD REPORT ---
EXAM DESCRIPTION: RAD - Chest Single View - 05/25/2020 6:53 am CLINICAL HISTORY: covid vent Chest pain. COMPARISON: Chest Single View dated 05/24/2020; Abdomen 1 View (KUB) dated 05/24/2020; Chest Single View dated 05/24/2020; Chest Single View dated 05/22/2020 FINDINGS: Portable technique limits examination quality. Tip of the endotracheal tube is above the jewell. Enteric tube is in the distal stomach. Moderate elva ateral pulmonary opacities are noted, greater on the left, mildly worse than on yesterday's study. Th e heart is mildly enlarged. IMPRESSION: Mild worsening in lung aeration is seen since yesterday's examination.
--- NOTE | 2020-05-25 12:23 | P.PN ---
Subjective Date of Service: 05/24/20 Primary Care Provider: BARBARA mccarty Chief Complaint: Respiratory failure Pt condition deteriorated very hypoxic and was transferred to eICU and was intubated. No improvement since admission Review of Systems is unable to be obtained Physical Examination - Vital Signs Temperature: 97.2 F Blood Pressure: 84/47 Pulse: 74 Respirations: 20 Pulse Ox (%): 87 - Physical Exam General: Severe distress Respiratory: Diminished, Friction rub Cardiovascular: No edema, Regular rate/rhythm - Studies Medications List Reviewed: Yes Assessment & Plan - Problems (Diagnosis) (1) 2019 novel coronavirus detected Current Visit: Yes Status: Acute Plan: Respiratory failure ferritin levels still very high over a 1000 declined is slightly CRP level is 20 continue with present treatment steroids BiPAP high- flow prone position ventilation white count is mildly elevated
--- NOTE | 2020-05-25 12:26 | P.PN ---
Subjective Date of Service: 05/25/20 Primary Care Provider: [facility]BARA [facility] Chief Complaint: Respiratory failure Pt on vent. hypotensive. SE of meds Review of Systems is unable to be obtained Physical Examination - Vital Signs Temperature: 97.2 F Blood Pressure: 84/47 Pulse: 74 Respirations: 20 Pulse Ox (%): 87 - Studies Medications List Reviewed: Yes Assessment & Plan - Problems (Diagnosis) (1) 2018 novel coronavirus detected Current Visit: Yes Status: Acute Plan: resp failure on 855 FIO2. Use Nimbex prn. start tube feeds still COVID positive
[2020-05-25] MEDS: CISATRACURIUM INJECTION 2 MG/ML (10 ML Vial) IV PRN (13:13)
--- NOTE | 2020-05-25 14:34 | P.PN ---
Subjective Date of Service: 05/25/20 Primary Care Provider: BARBARA mccarty Chief Complaint: Respiratory failure Subjective: No new changes (on mechanical ventilation - intubated yesterday, guarded prognosis needing maximal support. not on pressors. Had long di) Physical Examination - Vital Signs Temperature: 97.2 F Blood Pressure: 137/100 Pulse: 86 Respirations: 20 Pulse Ox (%): 85 - Physical Exam General: Other (Intubated and sedated) Respiratory: Crackles/rales Cardiovascular: No edema, Regular rate/rhythm Gastrointestinal: Soft and benign, Non-distended Integumentary: No rashes Urinary: Kelly catheter - Studies Medications List Reviewed: Yes Assessment & Plan Physician Review Additional Text: Assessment acute respiratory failure secondary to Bilateral COVID-19 pneumonia with hypoxia leukocytosis Diabetes mellitus type 2, lmq-gwoeciy-viqlywzes with hyperglycemia Obesity, BMI 33 Plan acute respiratory failure secondary to Bilateral COVID-19 pneumonia with hypoxia leukocytosis s/p Remdesivir and conv plasama start rocephin, continues on diflucan, given prolonged steroid use Continue IV steroid. down to 40 q12h, CRP slightly worse today, ferritin increasing intubated 05/24 family updated guarded prognosis Diabetes mellitus type 2 oxk-xzbqtza-rfdhkpprx with hyperglycemia: SSI, long acting will start tube feeds, adjust as needed VTE: Eliquis Dispo: guarded prognosis long discussion yesterday and today with and sister - discussed different types of therapies. they specifically asked if we can give him Anakinra I spoke with MANAGER REQUIREMENTS, and senior pharmacy technician. I explained to the family there is no listed protocol within our health system for this medication in COVID patients. Review shows this is only being used in clinical trials. I was told and explained to them that we do not have this medication, nor can we obtain this medication. This medication is not within current [facility] treatment protocols for COVID-19 pneumonia. They expressed their understanding. Time Spent Managing Pts Care (In Minutes): 35
[2020-05-25] MEDS: VITAMIN D 1000 UNIT TAB PO SCH (15:19)
[2020-05-25] MEDS: CISATRACURIUM BESYLATE 40 MG in NA CHLORIDE 0.9% 80 ML IV PRN ×2 (16:13→21:01)
[2020-05-25] MEDS: HYDROMORPHONE HCL 0.5 MG/0.5 ML INJ IV PRN ×2 (16:14→23:14)
[2020-05-25] MEDS: JEVITY 1.2 CAL LIQUID 1,000 ML BOT FT SCH (21:15)
[2020-05-26] MEDS: INSULIN -REGULAR HUMAN 50 UNIT/0.5 ML ML SQ SCH ×5 (00:59→23:57)
[2020-05-26] MEDS: LORazepam 2 MG/ML VIAL IV PRN (03:45)
[2020-05-26 05:48] LABS: Absolute Lymphocytes (CBC) 0.2 K/uL (0.7-4.9); Hematocrit 53.5 % (39.6-49.0); Lymphocytes % 0.6 % (15.3-44.8); MPV 8.7 fL (7.6-11.3)
[2020-05-26] MEDS: propofoL 1,000 MG/100 ML VIAL IV PRN ×3 (05:54→22:00)
[2020-05-26 06:26] LABS: ALT/SGPT 46 U/L (12-78); AST/SGOT 22 U/L (15-37); Albumin 2.9 g/dL (3.4-5.0); Alkaline Phosphatase 132 U/L (45-117); BUN Blood Urea Nitrogen 38 mg/dL (7-18); Bicarbonate 34 mmol/L (21-32); Bilirubin Total 0.8 mg/dL (0.2-1.0); Ferritin 1960.8 ng/mL (26-388); Glucose Level 258 mg/dL (74-106); Magnesium 2.5 mg/dL (1.8-2.4); Potassium 5.1 mmol/L (3.5-5.1); Protein, Total 7.5 g/dL (6.4-8.2); Sodium Level 132 mmol/L (136-145)
[2020-05-26 06:39] LABS: Arterial Blood Carboxyhemoglob 0.9 % (0-1.5); Blood Gas Oxyhemoglobin 94.4 % (94-97); Blood O2 Saturation 96.2 % (92-98.5)
[2020-05-26] MEDS: CISATRACURIUM BESYLATE 40 MG in NA CHLORIDE 0.9% 80 ML IV PRN ×2 (07:38→17:33)
[2020-05-26] MEDS: HYDROMORPHONE HCL 1 MG/ML INJ IV PRN ×3 (08:19→22:43)
--- NOTE | 2020-05-26 08:21 | RAD REPORT ---
EXAM DESCRIPTION: Yoselin Single View05/26/2020 7:53 am CLINICAL HISTORY: Shortness of breath COMPARISON: May 25, 2020 FINDINGS: Allowing for differences in the degree of inspiration no significant change in the bilate ral pulmonary opacities Heart is normal size The endotracheal tube has its tip 6.5 centimeters above the jewell. Feeding tube in place IMPRESSION: No significant change in the bilateral pulmonary opacities
[2020-05-26] MEDS: FLUCONAZOLE 100 MG TAB PO SCH (08:26)
[2020-05-26] MEDS: APIXABAN 5 MG TABLET PO SCH ×2 (08:26→20:44)
[2020-05-26] MEDS: METHYLPREDNISOLONE 40 MG INJ IV SCH ×2 (08:27→20:45)
[2020-05-26] MEDS: THIAMINE HCL 100 MG TABLET PO SCH (08:27)
[2020-05-26] MEDS: VITAMIN D 1000 UNIT TAB PO SCH (08:27)
[2020-05-26] MEDS: METFORMIN ER 500 MG TAB PO SCH ×2 (08:44→20:44)
[2020-05-26] MEDS: ASPIRIN EC 81 MG TAB PO SCH (08:44)
[2020-05-26] MEDS: FAMOTIDINE 20 MG/2 ML VIAL IV SCH ×2 (08:45→20:45)
[2020-05-26] MEDS ORDERED: INSULIN GLARGINE 100 UNITS/ML SQ SCH (09:00)
[2020-05-26] MEDS: Meropenem 1,000 MG in NA CHLORIDE 0.9% 100 ML IV SCH ×3 (09:00→23:58)
[2020-05-26] MEDS ORDERED: Meropenem 1000 MG/VIAL IV SCH (09:00)
[2020-05-26] MEDS: SITAGLIPTIN PHOS 100 MG TAB PO SCH (09:00)
[2020-05-26] MEDS: VANCOMYCIN 2 GM in NA CHLORIDE 0.9% 500 ML IVPB SCH ×2 (09:00→20:45)
[2020-05-26 09:36] LABS: Blood Gas Oxyhemoglobin 93.3 % (94-97); Blood O2 Saturation 95.1 % (92-98.5)
[2020-05-26 09:47] LABS: Blood Morphology Comment NOT SEEN (NOT SEEN); Platelet Estimate ADEQ
--- NOTE | 2020-05-26 12:51 | P.PN ---
Subjective Date of Service: 05/26/20 Primary Care Provider: BARBARA mccarty Chief Complaint: Respiratory failure Patient developed significant hypercapnia this morning ventilator settings have been change to allow for permissive hypercapnia Review of Systems is unable to be obtained Physical Examination - Vital Signs Temperature: 97.2 F Blood Pressure: 130/93 Pulse: 94 Respirations: 27 Pulse Ox (%): 98 - Studies Medications List Reviewed: Yes Assessment & Plan - Problems (Diagnosis) (1) 2019 novel coronavirus detected Current Visit: Yes Status: Acute Plan: Respiratory failure advance endotracheal tube white count significantly elevated agree with broad-spectrum antibiotic therapy he has been on steroids for very long time
[2020-05-26] MEDS ORDERED: INFLUENZA VACCINE (for 3y+) 0.5 ML DOSE IMVAC ONE (17:00)
--- NOTE | 2020-05-26 17:07 | P.PN ---
Subjective Date of Service: 05/26/20 Primary Care Provider: BARBARA mccarty Chief Complaint: Respiratory failure Subjective: Other (No acute events overnight, patient remains intubated and sedated. Leukocytosis significantly elevated today.) Review of Systems is unable to be obtained Physical Examination - Vital Signs Temperature: 97.3 F Blood Pressure: 116/84 Pulse: 92 Respirations: 28 Pulse Ox (%): 96 - Physical Exam General: Other (Intubated and sedated) Respiratory: Diminished Cardiovascular: No edema, Regular rate/rhythm Gastrointestinal: Soft and benign, Non-distended Musculoskeletal: No erythema Integumentary: No rashes, No significant lesion - Studies Medications List Reviewed: Yes Assessment & Plan Physician Review Additional Text: Assessment acute respiratory failure secondary to Bilateral COVID-19 pneumonia with hypoxia leukocytosis Diabetes mellitus type 2, rgo-axggwte-mvvufrofb with hyperglycemia Obesity, BMI 33 Plan acute respiratory failure secondary to Bilateral COVID-19 pneumonia with hypoxia leukocytosis s/p Remdesivir and conv plasama Significantly increased leukocytosis, obtain new blood cultures, check UA, check pro calcitonin Start broad-spectrum antibiotics with meropenem and vancomycin, continue Diflucan Ferritin increasing intubated 05/24 family updated - have a long discussion with , sister, and 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
[2020-05-26] MEDS: INSULIN GLARGINE 100 UNITS/ML SQ SCH (20:45)
[2020-05-27] MEDS: CISATRACURIUM BESYLATE 40 MG in NA CHLORIDE 0.9% 80 ML IV PRN ×4 (00:48→20:51)
[2020-05-27] MEDS: propofoL 1,000 MG/100 ML VIAL IV PRN ×3 (03:30→20:30)
[2020-05-27 05:09] LABS: Absolute Lymphocytes (CBC) 0.2 K/uL (0.7-4.9); Basophils % 0.2 % (0-1.3); Hematocrit 43.6 % (39.6-49.0); Lymphocytes % 1.3 % (15.3-44.8); MPV 8.8 fL (7.6-11.3); RBC Red Blood Cell Count 4.97 M/uL (4.33-5.43)
[2020-05-27 05:27] LABS: ALT/SGPT 30 U/L (12-78); AST/SGOT 11 U/L (15-37); Albumin 2.4 g/dL (3.4-5.0); Alkaline Phosphatase 97 U/L (45-117); BUN Blood Urea Nitrogen 30 mg/dL (7-18); Bicarbonate 36 mmol/L (21-32); Bilirubin Total 0.6 mg/dL (0.2-1.0); Ferritin 1622.3 ng/mL (26-388); Glucose Level 290 mg/dL (74-106); Magnesium 2.6 mg/dL (1.8-2.4); Phosphorus 2.1 mg/dL (2.5-4.9); Potassium 4.9 mmol/L (3.5-5.1); Protein, Total 5.8 g/dL (6.4-8.2); Sodium Level 139 mmol/L (136-145)
[2020-05-27] MEDS: HYDROMORPHONE HCL 1 MG/ML INJ IV PRN ×4 (05:31→19:30)
[2020-05-27 05:39] LABS: Arterial Blood Carboxyhemoglob 0.8 % (0-1.5); Blood Gas Oxyhemoglobin 96.1 % (94-97)
[2020-05-27] MEDS: INSULIN -REGULAR HUMAN 50 UNIT/0.5 ML ML SQ SCH ×3 (06:15→18:00)
[2020-05-27] MEDS: JEVITY 1.2 CAL LIQUID 1,000 ML BOT FT SCH (06:40)
--- NOTE | 2020-05-27 07:44 | RAD REPORT ---
EXAM DESCRIPTION: RAD - Chest Single View - 05/27/2020 6:17 am CLINICAL HISTORY: covid vent, respiratory distress COMPARISON: May 26 TECHNIQUE: AP portable chest image was obtained 05/27/2020 6:17 am . FINDINGS: Left greater than right airspace opacification present unchanged from prior imaging. Respi ratory motion accentuates lung parenchymal density. Endotracheal tube in good position. Enteric tube extends well below the diaphragm. Heart and vasculature are normal. No pneumothorax or large pleural effusion. IMPRESSION: Stable bilateral lung parenchymal opacification. ET tube and enteric tube remain in good position.
[2020-05-27] MEDS: FLUCONAZOLE 100 MG TAB PO SCH (08:38)
[2020-05-27] MEDS: SITAGLIPTIN PHOS 100 MG TAB PO SCH (08:39)
[2020-05-27] MEDS: APIXABAN 5 MG TABLET PO SCH ×2 (08:39→20:16)
[2020-05-27] MEDS: INSULIN GLARGINE 100 UNITS/ML SQ SCH ×2 (08:39→21:56)
[2020-05-27] MEDS: Meropenem 1,000 MG in NA CHLORIDE 0.9% 100 ML IV SCH ×2 (08:40→16:49)
[2020-05-27] MEDS: FAMOTIDINE 20 MG/2 ML VIAL IV SCH ×2 (08:40→20:18)
[2020-05-27] MEDS: METHYLPREDNISOLONE 40 MG INJ IV SCH ×2 (08:41→20:18)
[2020-05-27] MEDS: THIAMINE HCL 100 MG TABLET PO SCH (08:41)
[2020-05-27] MEDS: VITAMIN D 1000 UNIT TAB PO SCH (08:42)
[2020-05-27] MEDS: VANCOMYCIN 2 GM in NA CHLORIDE 0.9% 500 ML IVPB SCH ×2 (09:00→21:30)
[2020-05-27] MEDS: ASPIRIN EC 81 MG TAB PO SCH (09:00)
[2020-05-27] MEDS: METFORMIN ER 500 MG TAB PO SCH ×2 (09:00→20:17)
[2020-05-27 11:35] LABS: Arterial Blood Carboxyhemoglob 0.9 % (0-1.5); Blood Gas Oxyhemoglobin 88.8 % (94-97); Blood O2 Saturation 90.4 % (92-98.5)
--- NOTE | 2020-05-27 11:45 | P.PN ---
Subjective Date of Service: 05/27/20 Primary Care Provider: BARBARA mccarty Chief Complaint: Respiratory failure Patient is improving chest x-ray as also improved oxygen requirements are declining Review of Systems is unable to be obtained Physical Examination - Vital Signs Temperature: 98.0 F Blood Pressure: 122/76 Pulse: 115 Respirations: 26 Pulse Ox (%): 91 - Physical Exam General: Unresponsive Respiratory: Clear to auscultation bilaterally, Diminished Cardiovascular: No edema, Normal S1 S2 - Studies Medications List Reviewed: Yes Assessment & Plan - Problems (Diagnosis) (1) 2019 novel coronavirus detected Current Visit: Yes Status: Acute Plan: Respiratory failure doing better is chest x-rays is improving oxygen requirements are declining ferritin level is also declining white count is decreased to 19.4 blood pressure satisfactory blood gases reviewed hyperglycemia insulin increased
--- NOTE | 2020-05-27 12:33 | P.PN ---
Subjective Date of Service: 05/27/20 Primary Care Provider: BARBARA mccarty Chief Complaint: Respiratory failure No changes from yesterday. Patient is tolerating 65% FiO2. On mechanical ventilation. Leukocytosis trended down today. Physical Examination - Vital Signs Temperature: 98.0 F Blood Pressure: 122/76 Pulse: 115 Respirations: 26 Pulse Ox (%): 91 - Physical Exam General: Other (Sedated) HEENT: Other (Intubated) Cardiovascular: No edema, Other (Tachycardia) Gastrointestinal: Soft and benign, Non-distended Musculoskeletal: No swelling Integumentary: No rashes, No erythema Neurological: Other (Sedated) - Studies Medications List Reviewed: Yes Assessment And Plan - Current Problems (Diagnosis) (1) Pneumonia due to COVID-19 virus Current Visit: Yes Status: Acute (2) Acute respiratory failure with hypoxia Current Visit: Yes Status: Acute (3) Leukocytosis Current Visit: Yes Status: Acute Physician Review Additional Text: Assessment acute respiratory failure secondary to Bilateral COVID-19 pneumonia with hypoxia leukocytosis Diabetes mellitus type 2, ymn-lnwuohw-evudgqvak with hyperglycemia Obesity, BMI 33 Plan acute respiratory failure secondary to Bilateral COVID-19 pneumonia with hypoxia leukocytosis s/p Remdesivir and conv plasama Leukocytosis trended down today., repeat blood culture is pending. Pro calcitonin is negative. Start broad-spectrum antibiotics with meropenem and vancomycin for concern for bacterial superinfection. Continue Diflucan Ferritin trended down today. intubated 05/24 Family wanting experimental medications for patient guarded prognosis Diabetes mellitus type 2 jal-dyhnron-dmkwaiujs with hyperglycemia: On tube feeding. SSI. Titrate Lantus insulin VTE: Eliquis Dispo: guarded prognosis
[2020-05-27] MEDS: LORazepam 2 MG/ML VIAL IV PRN ×2 (15:40→21:00)
--- NOTE | 2020-05-27 19:32 | RAD REPORT ---
EXAM DESCRIPTION: RAD - Abdomen 1 View (KUB) - 05/27/2020 7:19 pm CLINICAL HISTORY: Abdomen pain. FINDINGS: The bowel gas pattern is unremarkable. Dobhoff tube has its tip in the second portion of duodenum
[2020-05-27 23:05] LABS: Urine Appearance CLEAR; Urine Bilirubin NEGATIVE (NEG); Urine Blood NEGATIVE (NEG); Urine Color YELLOW; Urine Glucose NEGATIVE (NEG); Urine Protein NEGATIVE (NEG); Urine Specific Gravity >=1.030 (1.005-1.030)
[2020-05-27 23:23] LABS: Urine Microscopic Reflex NO UMIC
[2020-05-28] MEDS: Meropenem 1,000 MG in NA CHLORIDE 0.9% 100 ML IV SCH ×2 (00:26→09:47)
[2020-05-28] MEDS: propofoL 1,000 MG/100 ML VIAL IV PRN ×3 (02:35→09:26)
[2020-05-28 05:46] LABS: BUN Blood Urea Nitrogen 32 mg/dL (7-18); Bicarbonate 35 mmol/L (21-32); Glucose Level 235 mg/dL (74-106); Potassium 4.8 mmol/L (3.5-5.1); Sodium Level 140 mmol/L (136-145)
[2020-05-28 05:54] LABS: Absolute Lymphocytes (CBC) 0.3 K/uL (0.7-4.9); Basophils % 0.3 % (0-1.3); Hematocrit 40.4 % (39.6-49.0); MPV 9.3 fL (7.6-11.3)
[2020-05-28] MEDS: INSULIN -REGULAR HUMAN 50 UNIT/0.5 ML ML SQ SCH ×5 (06:01→23:58)
[2020-05-28 06:11] LABS: Arterial Blood Carboxyhemoglob 1.2 % (0-1.5); Blood Gas Oxyhemoglobin 89.2 % (94-97); Blood O2 Saturation 91.1 % (92-98.5)
[2020-05-28] MEDS: MIDAZOLAM HCL 2 MG/2 ML INJ IV PRN (07:59)
[2020-05-28] MEDS: LORazepam 2 MG/ML VIAL IV PRN ×3 (08:36→16:39)
--- NOTE | 2020-05-28 08:56 | RAD REPORT ---
EXAM DESCRIPTION: RAD - Chest Single View - 05/28/2020 6:53 am CLINICAL HISTORY: covid vent Chest pain. COMPARISON: Abdomen 1 View (KUB) dated 05/27/2020; Chest Single View dated 05/27/2020; Chest Single Vi ew dated 05/26/2020; Chest Single View dated 05/25/2020 FINDINGS: Portable technique limits examination quality. Mild bilateral pulmonary opacities are noted, unchanged. The heart is mildly prominent size. Tip of t he endotracheal tube is above the jewell. Enteric tube descends into the stomach. IMPRESSION: Stable chest since 05/27/2020.
[2020-05-28] MEDS ORDERED: VANCOMYCIN 1.5 GM in NA CHLORIDE 0.9% 500 ML IVPB SCH (09:00)
[2020-05-28] MEDS: VITAMIN D 1000 UNIT TAB PO SCH (09:44)
[2020-05-28] MEDS: APIXABAN 5 MG TABLET PO SCH ×2 (09:44→21:40)
[2020-05-28] MEDS: THIAMINE HCL 100 MG TABLET PO SCH (09:44)
[2020-05-28] MEDS: FAMOTIDINE 20 MG/2 ML VIAL IV SCH ×2 (09:44→21:40)
[2020-05-28] MEDS: SITAGLIPTIN PHOS 100 MG TAB PO SCH (09:44)
[2020-05-28] MEDS: METHYLPREDNISOLONE 40 MG INJ IV SCH ×2 (09:44→21:40)
[2020-05-28] MEDS: INSULIN GLARGINE 100 UNITS/ML SQ SCH ×2 (09:44→21:45)
[2020-05-28] MEDS: FLUCONAZOLE 100 MG TAB PO SCH (09:46)
[2020-05-28] MEDS: METFORMIN ER 500 MG TAB PO SCH ×2 (09:46→15:59)
[2020-05-28] MEDS: CISATRACURIUM INJECTION 2 MG/ML (10 ML Vial) IV PRN (10:00)
[2020-05-28] MEDS: HYDROMORPHONE HCL 1 MG/ML INJ IV PRN ×3 (10:13→23:58)
[2020-05-28 10:55] LABS: C-Reactive Protein 9.7 mg/L (<3.00); Ferritin 1440.5 ng/mL (26-388)
--- NOTE | 2020-05-28 11:59 | P.PN ---
Subjective Date of Service: 05/28/20 Primary Care Provider: BARBARA mccarty Chief Complaint: Respiratory failure Patient is improving oxygen requirements declining chest x-ray also looks better no progression endotracheal tube is satisfactory Review of Systems is unable to be obtained Physical Examination - Vital Signs Temperature: 97.3 F Blood Pressure: 100/72 Pulse: 95 Respirations: 30 Pulse Ox (%): 97 - Physical Exam General: Unresponsive Respiratory: Clear to auscultation bilaterally, Diminished Cardiovascular: No edema, Normal S1 S2 - Studies Medications List Reviewed: Yes Assessment & Plan - Problems (Diagnosis) (1) 2019 novel coronavirus detected Current Visit: Yes Status: Acute Plan: Respiratory failure oxygen requirements are declining currently on FiO2 of 65% blood cultures sputum cultures negative change to narrow spectrum antibiotic Rocephin with doxycycline her sugars still elevated white count is declining ABGs satisfactory currently on FiO2 of 80% peep of 12
[2020-05-28] MEDS: CISATRACURIUM BESYLATE 40 MG in NA CHLORIDE 0.9% 80 ML IV PRN (12:03)
[2020-05-28] MEDS: FENTANYL CITR 100 MCG/2 ML IV PRN (12:47)
[2020-05-28] MEDS ORDERED: METOPROLOL TARTRATE 5 MG/5 ML INJ IV STA (13:03)
--- NOTE | 2020-05-28 13:12 | P.PN ---
Subjective Date of Service: 05/28/20 Primary Care Provider: [facility] Chief Complaint: Respiratory failure No changes from yesterday. Patient is tolerating 65% FiO2. On mechanical ventilation. Leukocytosis continued to trend down. Physical Examination - Vital Signs Temperature: 97.4 F Blood Pressure: 148/94 Pulse: 100 Respirations: 30 Pulse Ox (%): 95 - Physical Exam General: Other (Sedated) HEENT: Other (Intubated) Respiratory: Other (Bilateral upper airway transmitted sounds.) Cardiovascular: No edema, Normal S1 S2, Other (Tachycardia.) Gastrointestinal: Normal bowel sounds, Soft and benign, Non-distended Musculoskeletal: No swelling Integumentary: No rashes Neurological: Other (No focal deficit) - Studies Medications List Reviewed: Yes Assessment And Plan - Current Problems (Diagnosis) (1) Pneumonia due to COVID-19 virus Current Visit: Yes Status: Acute (2) Acute respiratory failure with hypoxia Current Visit: Yes Status: Acute (3) Leukocytosis Current Visit: Yes Status: Acute Physician Review Additional Text: Assessment acute respiratory failure secondary to Bilateral COVID-19 pneumonia with hypoxia leukocytosis Diabetes mellitus type 2, qql-sxfapfv-xpwdvojha with hyperglycemia Obesity, BMI 33 Plan acute respiratory failure secondary to Bilateral COVID-19 pneumonia with hypoxia leukocytosis s/p Remdesivir and conv plasama Leukocytosis continued to trend down., repeat blood culture is pending. Pro calcitonin is negative. Continue meropenem and vancomycin for concern for bacterial superinfection. Continue Diflucan intubated 05/24 Family wanting experimental medications for patient. I am told the experimental medication is not available to be given in the [facility] system. guarded prognosis Diabetes mellitus type 2 qjv-ctkhbea-dxuonvxvx with hyperglycemia: On tube feeding. SSI. Titrate Lantus insulin VTE: Eliquis Dispo: guarded prognosis
[2020-05-28] MEDS: MIDAZOLAM HCL 100 MG in NA CHLORIDE 0.9% 80 ML IV PRN ×2 (15:23→21:45)
--- NOTE | 2020-05-28 15:36 | RAD REPORT ---
EXAM DESCRIPTION: RAD - Abdomen 1 View (KUB) - 05/28/2020 3:29 pm CLINICAL HISTORY: Dobhoff placement COMPARISON: Abdomen 1 View (KUB) dated 05/27/2020 FINDINGS: A Dobhoff feeding tube is in place. Tip is in the third portion of the duodenum. No obstru ction, free air or pneumatosis. No suspicious calcifications. No significant bony findings IMPRESSION: Dobhoff feeding tube placement with tip in the 3rd portion duodenum.
[2020-05-28] MEDS ORDERED: CISATRACURIUM BESYLATE 40 MG in NA CHLORIDE 0.9% 80 ML IV ONE (18:00)
[2020-05-28] MEDS: CISATRACURIUM BESYLATE 80 MG in NA CHLORIDE 0.9% 160 ML IV PRN (19:09)
[2020-05-28] MEDS: DOXYCYCLINE 100 MG CAP PO SCH (21:00)
[2020-05-28] MEDS ORDERED: METHYLPREDNISOLONE 40 MG INJ ONE (21:48)
[2020-05-28] MEDS ORDERED: HYDRALAZINE HCL 20 MG/ML VIAL IV ONE (22:07)
[2020-05-29] MEDS: CISATRACURIUM BESYLATE 80 MG in NA CHLORIDE 0.9% 160 ML IV PRN ×2 (00:40→08:20)
[2020-05-29 05:21] LABS: Absolute Lymphocytes (CBC) 0.2 K/uL (0.7-4.9); Basophils % 0.2 % (0-1.3); Hematocrit 46.4 % (39.6-49.0); Lymphocytes % 0.9 % (15.3-44.8); MPV 8.7 fL (7.6-11.3); RBC Red Blood Cell Count 5.29 M/uL (4.33-5.43)
[2020-05-29 05:41] LABS: BUN Blood Urea Nitrogen 24 mg/dL (7-18); Bicarbonate 39 mmol/L (21-32); Glucose Level 309 mg/dL (74-106); Sodium Level 135 mmol/L (136-145)
[2020-05-29] MEDS: JEVITY 1.2 CAL LIQUID 1,000 ML BOT FT SCH (06:18)
[2020-05-29] MEDS: HYDROMORPHONE HCL 1 MG/ML INJ IV PRN ×3 (06:18→16:55)
[2020-05-29] MEDS: INSULIN -REGULAR HUMAN 50 UNIT/0.5 ML ML SQ SCH ×3 (06:19→18:01)
[2020-05-29 06:29] LABS: Arterial Blood Carboxyhemoglob 1.2 % (0-1.5); Blood Gas Oxyhemoglobin 91.6 % (94-97); Blood O2 Saturation 93.9 % (92-98.5)
[2020-05-29 07:51] LABS: Platelet Estimate ADEQ
[2020-05-29 07:53] LABS: Blood Morphology Comment NOT SEEN (NOT SEEN)
[2020-05-29] MEDS: METFORMIN ER 500 MG TAB PO SCH ×2 (08:00→15:18)
[2020-05-29] MEDS ORDERED: ALBUMIN HUMAN 25% 50 ML IV ONE (08:41)
--- NOTE | 2020-05-29 08:51 | RAD REPORT ---
EXAM DESCRIPTION: RAD - Chest Single View - 05/29/2020 6:10 am CLINICAL HISTORY: covid vent Chest pain. COMPARISON: Abdomen 1 View (KUB) dated 05/28/2020; Chest Single View dated 05/28/2020; Abdomen 1 View (KUB) dated 05/27/2020; Chest Single View dated 05/27/2020 FINDINGS: Portable technique limits examination quality. Tip of the endotracheal tube is above the jewell. Enteric tube descends into the upper abdomen. Bilat eral patchy lung opacities are present, unchanged since comparative study. The heart is upper limit n ormal in size. IMPRESSION: Stable chest since 05/28/2020.
[2020-05-29] MEDS: FLUCONAZOLE 100 MG TAB PO SCH (09:00)
[2020-05-29] MEDS: INSULIN GLARGINE 100 UNITS/ML SQ SCH ×2 (09:00→20:25)
[2020-05-29] MEDS: SITAGLIPTIN PHOS 100 MG TAB PO SCH (09:00)
[2020-05-29] MEDS: DOXYCYCLINE 100 MG CAP PO SCH ×2 (09:00→20:24)
[2020-05-29] MEDS: APIXABAN 5 MG TABLET PO SCH ×2 (09:23→20:23)
[2020-05-29] MEDS ORDERED: NA CHLORIDE 0.9% 500 ML IV ONE (09:23)
[2020-05-29] MEDS: FAMOTIDINE 20 MG/2 ML VIAL IV SCH ×2 (09:24→20:24)
[2020-05-29] MEDS: CEFTRIAXONE/SWI 1gm 1 GM/50 ML SYR IV SCH (09:24)
[2020-05-29] MEDS: THIAMINE 200 MG/2 ML INJ IVP SCH ×2 (09:30→20:24)
[2020-05-29] MEDS: ASCORBIC ACID 500 MG TABLET PO SCH ×3 (09:31→20:23)
[2020-05-29] MEDS: VITAMIN D 1000 UNIT TAB PO SCH (11:09)
--- NOTE | 2020-05-29 13:06 | P.PN ---
Subjective Date of Service: 05/29/20 Primary Care Provider: BARBARA mccarty Chief Complaint: Respiratory failure no change patient is still very hypoxic oxygenation has improved patient is hypercapnic Physical Examination - Vital Signs Temperature: 98.4 F Blood Pressure: 97/69 Pulse: 91 Respirations: 30 Pulse Ox (%): 91 - Physical Exam General: Unresponsive Respiratory: Diminished, Crackles/rales Cardiovascular: No edema, Normal pulses - Studies Medications List Reviewed: Yes Assessment & Plan - Problems (Diagnosis) (1) 2018 novel coronavirus detected Current Visit: Yes Status: Acute Plan: respiratory failure patient is hypercapnic currently on maximum therapy he is on a pressure control therapy tolerating prone position 1 dose of ivermectin hyperglycemic resume Solu-Medrol
[2020-05-29] MEDS ORDERED: IVERMECTIN 3 MG TABLETS PO ONE (14:30)
[2020-05-29] MEDS: HYDROMORPHONE HCL 0.5 MG/0.5 ML INJ IV PRN ×2 (14:36→23:16)
[2020-05-29 15:15] LABS: Arterial Blood Carboxyhemoglob 1.5 % (0-1.5); Blood Gas Oxyhemoglobin 93.6 % (94-97)
[2020-05-29] MEDS: LORazepam 2 MG/ML VIAL IV PRN (15:33)
[2020-05-29] MEDS: MIDAZOLAM HCL 100 MG in NA CHLORIDE 0.9% 80 ML IV PRN (15:53)
--- NOTE | 2020-05-29 15:55 | P.PN ---
Subjective Date of Service: 05/29/20 Primary Care Provider: [facility] Chief Complaint: Respiratory failure No major clinical changes. He was retaining CO2 this morning but that has resolved based on current blood gas. On mechanical ventilation. Leukocytosis up today. Not sure what is causing the fluctuating WBC count. Physical Examination - Vital Signs Temperature: 98.4 F Blood Pressure: 171/110 Pulse: 106 Respirations: 30 Pulse Ox (%): 91 - Physical Exam General: Other (Sedated) HEENT: Other (Intubated) Respiratory: Other (Bilateral upper airway transmitted sounds) Cardiovascular: Other (Tachycardia) Gastrointestinal: Soft and benign, Non-distended Musculoskeletal: No swelling Neurological: Other (Sedated.) - Studies Medications List Reviewed: Yes Assessment And Plan - Current Problems (Diagnosis) (1) Pneumonia due to COVID-19 virus Current Visit: Yes Status: Acute (2) Acute respiratory failure with hypoxia Current Visit: Yes Status: Acute (3) Leukocytosis Current Visit: Yes Status: Acute Physician Review Additional Text: Assessment acute respiratory failure secondary to Bilateral COVID-19 pneumonia with hypoxia leukocytosis Diabetes mellitus type 2, ygh-svrxwxi-hypldjltt with hyperglycemia Obesity, BMI 33 Plan acute respiratory failure secondary to Bilateral COVID-19 pneumonia with hypoxia leukocytosis s/p Remdesivir and conv plasama Leukocytosis seems to fluctuate, repeat blood cultures: No growth. Pro calcitonin is negative. Sputum culture: GPC. Continue meropenem and vancomycin for concern for bacterial superinfection. Continue Diflucan intubated 05/24 Family informed experimental drugs are not available in this facility. Pulmonary is following. guarded prognosis. Hypertension Fluctuating BP could be secondary to sympathetic discharge. Hydralazine p.r.n. Pain medication as needed. Diabetes mellitus type 2 ipy-hsvkecz-qsjdplxqb with hyperglycemia: On tube feeding. SSI. Titrate Lantus insulin VTE: Eliquis
[2020-05-29] MEDS: METHYLPREDNISOLONE 40 MG INJ IV SCH (17:23)
[2020-05-30] MEDS: CISATRACURIUM BESYLATE 80 MG in NA CHLORIDE 0.9% 160 ML IV PRN ×4 (00:30→20:39)
[2020-05-30] MEDS: INSULIN -REGULAR HUMAN 50 UNIT/0.5 ML ML SQ SCH ×4 (00:38→17:41)
[2020-05-30] MEDS: METHYLPREDNISOLONE 40 MG INJ IV SCH ×3 (00:39→17:53)
[2020-05-30] MEDS: ACETAMINOPHEN 500 MG TAB PO PRN (00:50)
[2020-05-30] MEDS: FENTANYL CITR 100 MCG/2 ML IV PRN ×2 (01:18→12:44)
[2020-05-30 05:37] LABS: Absolute Lymphocytes (CBC) 0.2 K/uL (0.7-4.9); Basophils % 0.2 % (0-1.3); Hematocrit 44.2 % (39.6-49.0); Lymphocytes % 1.6 % (15.3-44.8); MPV 8.9 fL (7.6-11.3); RBC Red Blood Cell Count 5.02 M/uL (4.33-5.43)
[2020-05-30 06:11] LABS: BUN Blood Urea Nitrogen 27 mg/dL (7-18); Bicarbonate 35 mmol/L (21-32); Ferritin 1861.9 ng/mL (26-388); Glucose Level 229 mg/dL (74-106); Potassium 4.4 mmol/L (3.5-5.1); Sodium Level 136 mmol/L (136-145)
[2020-05-30] MEDS: MIDAZOLAM HCL 100 MG in NA CHLORIDE 0.9% 80 ML IV PRN ×2 (06:35→17:39)
--- NOTE | 2020-05-30 07:47 | RAD REPORT ---
EXAM DESCRIPTION: Yoselin Single View05/30/2020 5:51 am CLINICAL HISTORY: Respiratory distress COMPARISON: May 29, 2020 FINDINGS: Endotracheal tube with its tip well above the jewell. Tip of a feeding tube is not include d in the field of view. It either lies within the stomach or duodenum. Minimal improvement in the bilateral pulmonary opacities IMPRESSION: Minimal improvement in the bilateral pulmonary opacities likely pneumonia
[2020-05-30] MEDS: HYDROMORPHONE HCL 1 MG/ML INJ IV PRN ×4 (07:55→23:30)
[2020-05-30] MEDS: METFORMIN ER 500 MG TAB PO SCH ×2 (08:00→17:00)
[2020-05-30] MEDS: FAMOTIDINE 20 MG/2 ML VIAL IV SCH ×2 (08:22→21:34)
[2020-05-30] MEDS: CEFTRIAXONE/SWI 1gm 1 GM/50 ML SYR IV SCH (08:22)
[2020-05-30] MEDS: SITAGLIPTIN PHOS 100 MG TAB PO SCH (08:22)
[2020-05-30] MEDS: THIAMINE 200 MG/2 ML INJ IVP SCH ×2 (08:22→21:35)
[2020-05-30] MEDS: VITAMIN D 1000 UNIT TAB PO SCH (08:23)
[2020-05-30] MEDS: ASCORBIC ACID 500 MG TABLET PO SCH ×3 (08:23→21:35)
[2020-05-30] MEDS: APIXABAN 5 MG TABLET PO SCH ×2 (08:23→21:33)
[2020-05-30] MEDS: INSULIN GLARGINE 100 UNITS/ML SQ SCH ×2 (08:23→21:33)
[2020-05-30] MEDS: DOXYCYCLINE 100 MG CAP PO SCH ×2 (08:25→21:34)
[2020-05-30] MEDS: LORazepam 2 MG/ML VIAL IV PRN ×3 (11:09→23:10)
[2020-05-30] MEDS: MIDAZOLAM HCL 2 MG/2 ML INJ IV PRN (12:37)
--- NOTE | 2020-05-30 13:33 | P.PN ---
Subjective Date of Service: 05/30/20 Primary Care Provider: BARBARA mccarty Chief Complaint: Respiratory failure None you change patient's condition is stable for elevated oxygen requirements declining Review of Systems is unable to be obtained Physical Examination - Vital Signs Temperature: 98.9 F Blood Pressure: 185/96 Pulse: 108 Respirations: 30 Pulse Ox (%): 88 - Studies Medications List Reviewed: Yes Assessment & Plan - Problems (Diagnosis) (1) 2019 novel coronavirus detected Current Visit: Yes Status: Acute Plan: Respiratory failure continue with present treatment white count is declining due to weaned on on is oxygen care tube is satisfactory minimal improvement patient has intermittently has high a blood pressure hydralazine p.r.n. no change
--- NOTE | 2020-05-30 16:17 | P.PN ---
Subjective Date of Service: 05/30/20 Primary Care Provider: BARBARA mccarty Chief Complaint: Respiratory failure No major clinical changes. Chest x-ray today result reviewed and reporting some improvement in the infiltrates. Oxygen requirement has also decreased. On mechanical ventilation. Fluctuating leukocytosis. Physical Examination - Vital Signs Temperature: 98.9 F Blood Pressure: 161/113 Pulse: 135 Respirations: 30 Pulse Ox (%): 94 - Physical Exam General: Other (Sedated) HEENT: Other (Intubated) Cardiovascular: Normal S1 S2, Other (Tachycardia.) Gastrointestinal: Normal bowel sounds, Soft and benign, Non-distended Musculoskeletal: No swelling Integumentary: No rashes Neurological: Other (Sedated) - Studies Medications List Reviewed: Yes Assessment And Plan - Current Problems (Diagnosis) (1) Pneumonia due to COVID-19 virus Current Visit: Yes Status: Acute (2) Acute respiratory failure with hypoxia Current Visit: Yes Status: Acute (3) Leukocytosis Current Visit: Yes Status: Acute Physician Review Additional Text: Assessment acute respiratory failure secondary to Bilateral COVID-19 pneumonia with hypoxia leukocytosis Diabetes mellitus type 2, wef-ssjjdvv-erxdzjowl with hyperglycemia Obesity, BMI 33 Plan acute respiratory failure secondary to Bilateral COVID-19 pneumonia with hypoxia leukocytosis s/p Remdesivir and conv plasama Leukocytosis seems to fluctuate, repeat blood cultures: No growth. Pro calcitonin is negative. Sputum culture: GPC. Continue antibiotics. Continue Diflucan intubated 05/24 Pulmonary is following. guarded prognosis. Hypertension Fluctuating BP could be secondary to sympathetic discharge. Metoprolol IV PRN Pain medication as needed. Diabetes mellitus type 2 srh-xfposdq-tidgkzsup with hyperglycemia: On tube feeding. SSI. Titrate Lantus insulin VTE: Eliquis
[2020-05-31] MEDS ORDERED: HYDRALAZINE HCL 20 MG/ML VIAL IV ONE (00:16)
[2020-05-31] MEDS ORDERED: HYDROMORPHONE HCL 2 MG/ML inj IV ONE (00:16)
[2020-05-31] MEDS: INSULIN -REGULAR HUMAN 50 UNIT/0.5 ML ML SQ SCH ×4 (00:51→18:46)
[2020-05-31] MEDS: METHYLPREDNISOLONE 40 MG INJ IV SCH ×3 (00:59→18:47)
[2020-05-31] MEDS ORDERED: NA CHLORIDE 0.9% 500 ML ONE (04:42)
[2020-05-31] MEDS ORDERED: NA CHLORIDE 0.9% 500 ML IV ONE (04:46)
[2020-05-31 05:47] LABS: Arterial Blood Carboxyhemoglob 1.2 % (0-1.5); Blood Gas Oxyhemoglobin 92.3 % (94-97); Blood O2 Saturation 94.3 % (92-98.5)
[2020-05-31] MEDS: CISATRACURIUM BESYLATE 80 MG in NA CHLORIDE 0.9% 160 ML IV PRN ×2 (05:49→14:44)
[2020-05-31 06:12] LABS: BUN Blood Urea Nitrogen 32 mg/dL (7-18); Bicarbonate 33 mmol/L (21-32); Ferritin 1416.8 ng/mL (26-388); Glucose Level 175 mg/dL (74-106); Sodium Level 139 mmol/L (136-145)
[2020-05-31 06:13] LABS: C-Reactive Protein < 2.90 mg/L (<3.00); Potassium 4.5 mmol/L (3.5-5.1)
[2020-05-31] MEDS: MIDAZOLAM HCL 2 MG/2 ML INJ IV PRN (06:14)
[2020-05-31 06:16] LABS: Absolute Lymphocytes (CBC) 0.7 K/uL (0.7-4.9); Basophils % 0.4 % (0-1.3); Hematocrit 39.7 % (39.6-49.0); MPV 9.3 fL (7.6-11.3); RBC Red Blood Cell Count 4.51 M/uL (4.33-5.43)
[2020-05-31] MEDS: HYDROMORPHONE HCL 1 MG/ML INJ IV PRN ×3 (06:43→23:28)
[2020-05-31] MEDS: MIDAZOLAM HCL 100 MG in NA CHLORIDE 0.9% 80 ML IV PRN ×2 (07:34→14:44)
[2020-05-31] MEDS: METFORMIN ER 500 MG TAB PO SCH ×2 (08:00→16:34)
[2020-05-31] MEDS: THIAMINE 200 MG/2 ML INJ IVP SCH ×2 (09:00→22:03)
[2020-05-31] MEDS: CEFTRIAXONE/SWI 1gm 1 GM/50 ML SYR IV SCH (09:00)
[2020-05-31] MEDS: APIXABAN 5 MG TABLET PO SCH ×2 (09:15→22:02)
[2020-05-31] MEDS: ASCORBIC ACID 500 MG TABLET PO SCH ×3 (09:15→22:03)
[2020-05-31] MEDS: SITAGLIPTIN PHOS 100 MG TAB PO SCH (09:16)
[2020-05-31] MEDS: FAMOTIDINE 20 MG/2 ML VIAL IV SCH ×2 (09:16→22:03)
[2020-05-31] MEDS: DOXYCYCLINE 100 MG CAP PO SCH ×2 (09:18→21:00)
[2020-05-31] MEDS: VITAMIN D 1000 UNIT TAB PO SCH (09:18)
[2020-05-31] MEDS: INSULIN GLARGINE 100 UNITS/ML SQ SCH ×2 (09:20→22:03)
--- NOTE | 2020-05-31 11:12 | P.PN ---
Subjective Date of Service: 05/31/20 Primary Care Provider: BARBARA [facility] Chief Complaint: Respiratory failure No major clinical changes. Oxygen requirement has also decreased. On mechanical ventilation. Fluctuating leukocytosis. Fluctuation blood pressure and heart rate. Physical Examination - Vital Signs Temperature: 99.5 F Blood Pressure: 165/92 Pulse: 111 Respirations: 30 Pulse Ox (%): 95 - Physical Exam General: Other (Sedated) HEENT: Other (Intubated) Cardiovascular: No edema, Regular rate/rhythm Gastrointestinal: Soft and benign, Non-distended Musculoskeletal: No swelling Integumentary: No rashes Neurological: Other (Sedated) - Studies Medications List Reviewed: Yes Assessment And Plan - Current Problems (Diagnosis) (1) Pneumonia due to COVID-19 virus Current Visit: Yes Status: Acute (2) Acute respiratory failure with hypoxia Current Visit: Yes Status: Acute (3) Leukocytosis Current Visit: Yes Status: Acute Physician Review Additional Text: Assessment acute respiratory failure secondary to Bilateral COVID-19 pneumonia with hypoxia leukocytosis Diabetes mellitus type 2, yla-fezckjs-huewscnvh with hyperglycemia Obesity, BMI 33 Plan acute respiratory failure secondary to Bilateral COVID-19 pneumonia with hypoxia leukocytosis s/p Remdesivir and conv plasama Leukocytosis seems to fluctuate, repeat blood cultures: No growth. Pro calcitonin is negative. Sputum culture: GPC. Continue antibiotics. Continue Diflucan intubated 05/24 Pulmonary is following. guarded prognosis. Sedation vacation in the morning. Hypertension Fluctuating BP could be secondary to sympathetic discharge. Metoprolol IV PRN Pain medication as needed. Diabetes mellitus type 2 qps-hkettrz-uuriganbm with hyperglycemia: On tube feeding. SSI. Titrate Lantus insulin VTE: Eliquis
--- NOTE | 2020-05-31 11:42 | RAD REPORT ---
EXAM DESCRIPTION: RAD - Chest Single View - 05/31/2020 6:20 am CLINICAL HISTORY: Respiratory failure Chest pain. COMPARISON: Chest Single View dated 05/30/2020; Chest Single View dated 05/29/2020; Abdomen 1 View ([facility]) dated 05/28/2020; Chest Single View dated 05/28/2020 FINDINGS: Portable technique limits examination quality. Tip of the endotracheal tube is above the jewell. Enteric tube descends into the stomach. Mild asymme tric interstitial lung opacities are seen, slightly greater on the left, mildly improved since prior study. The heart is normal in size. No displaced fractures. IMPRESSION: Mild improvement is seen in lung aeration since the comparative study.
[2020-05-31] MEDS: METOPROLOL TARTRATE 5 MG/5 ML INJ IV PRN ×2 (13:07→22:01)
[2020-06-01] MEDS: CISATRACURIUM BESYLATE 80 MG in NA CHLORIDE 0.9% 160 ML IV PRN ×3 (00:15→16:24)
[2020-06-01] MEDS: MIDAZOLAM HCL 100 MG in NA CHLORIDE 0.9% 80 ML IV PRN ×3 (00:16→16:23)
[2020-06-01] MEDS: INSULIN -REGULAR HUMAN 50 UNIT/0.5 ML ML SQ SCH ×4 (00:16→18:00)
[2020-06-01] MEDS: METHYLPREDNISOLONE 40 MG INJ IV SCH ×3 (00:17→21:01)
[2020-06-01] MEDS: METOPROLOL TARTRATE 5 MG/5 ML INJ IV PRN (05:18)
[2020-06-01 05:47] LABS: Absolute Lymphocytes (CBC) 0.5 K/uL (0.7-4.9); Basophils % 0.1 % (0-1.3); Hematocrit 45.8 % (39.6-49.0); Lymphocytes % 2.4 % (15.3-44.8); RBC Red Blood Cell Count 5.18 M/uL (4.33-5.43)
[2020-06-01 06:00] LABS: Arterial Blood Carboxyhemoglob 1.2 % (0-1.5); Blood Gas Oxyhemoglobin 88.3 % (94-97); Blood O2 Saturation 90.2 % (92-98.5)
[2020-06-01 06:13] LABS: BUN Blood Urea Nitrogen 29 mg/dL (7-18); Bicarbonate 34 mmol/L (21-32); Ferritin 1824.7 ng/mL (26-388); Glucose Level 153 mg/dL (74-106); Sodium Level 140 mmol/L (136-145)
[2020-06-01 06:22] LABS: C-Reactive Protein < 2.90 mg/L (<3.00); Potassium 4.3 mmol/L (3.5-5.1)
[2020-06-01] MEDS: HYDROMORPHONE HCL 1 MG/ML INJ IV PRN ×3 (06:29→19:46)
[2020-06-01 07:12] LABS: Blood Morphology Comment NOT SEEN (NOT SEEN); Platelet Estimate ADEQ; White Blood Cell Scan OK (OK)
[2020-06-01] MEDS: METFORMIN ER 500 MG TAB PO SCH ×2 (08:00→17:00)
--- NOTE | 2020-06-01 08:01 | RAD REPORT ---
EXAM DESCRIPTION: RAD - Chest Single View - 06/01/2020 6:24 am CLINICAL HISTORY: Respiratory failure COMPARISON: Portable May 31, portable May 30 TECHNIQUE: AP portable chest image was obtained 06/01/2020 6:24 am . FINDINGS: Endotracheal tube in good position. Feeding tube extends below the diaphragm. Tip is off t he field of view. Left greater than right interstitial and alveolar opacities are present unchanged back to 2014. Heart and vasculature are normal. No measurable pleural effusion and no pneumothorax. No acute bony a bnormality seen. No acute aortic findings suspected. IMPRESSION: Stable chest comparing back to May 30.
[2020-06-01] MEDS: APIXABAN 5 MG TABLET PO SCH ×2 (09:00→21:01)
[2020-06-01] MEDS: CEFTRIAXONE/SWI 1gm 1 GM/50 ML SYR IV SCH (09:00)
[2020-06-01] MEDS: DOXYCYCLINE 100 MG CAP PO SCH (09:00)
[2020-06-01] MEDS: THIAMINE 200 MG/2 ML INJ IVP SCH ×2 (09:00→21:00)
[2020-06-01] MEDS: SITAGLIPTIN PHOS 100 MG TAB PO SCH (09:00)
[2020-06-01] MEDS: INSULIN GLARGINE 100 UNITS/ML SQ SCH ×2 (09:00→21:02)
[2020-06-01] MEDS: VITAMIN D 1000 UNIT TAB PO SCH (09:00)
[2020-06-01] MEDS: FAMOTIDINE 20 MG/2 ML VIAL IV SCH ×2 (09:00→21:01)
--- NOTE | 2020-06-01 09:58 | P.PN ---
Subjective Date of Service: 06/01/20 Primary Care Provider: BARBARA mccarty Chief Complaint: Respiratory failure No major clinical changes. On mechanical ventilation. Leukocytosis fluctuates. Blood pressure and heart rate also fluctuate. Physical Examination - Vital Signs Temperature: 96.6 F Blood Pressure: 103/66 Pulse: 90 Respirations: 30 Pulse Ox (%): 98 - Physical Exam General: Other (Sedated) HEENT: Other (Intubated) Cardiovascular: No edema, Regular rate/rhythm Gastrointestinal: Soft and benign, Non-distended Musculoskeletal: No swelling Integumentary: No rashes Neurological: Other (Moves all extremities spontaneously.) - Studies Medications List Reviewed: Yes Assessment And Plan - Current Problems (Diagnosis) (1) Pneumonia due to COVID-19 virus Current Visit: Yes Status: Acute (2) Acute respiratory failure with hypoxia Current Visit: Yes Status: Acute (3) Leukocytosis Current Visit: Yes Status: Acute Physician Review Additional Text: Assessment acute respiratory failure secondary to Bilateral COVID-19 pneumonia with hypoxia leukocytosis Diabetes mellitus type 2, zpn-hgtrqlw-wdvuwlxft with hyperglycemia Obesity, BMI 33 Plan acute respiratory failure secondary to Bilateral COVID-19 pneumonia with hypoxia leukocytosis s/p Remdesivir and conv plasama Leukocytosis seems to fluctuate, repeat blood cultures: No growth. Pro calcitonin is negative. Sputum culture: GPC. Continue antibiotics. Continue Diflucan intubated 05/24 Pulmonary is following. guarded prognosis. Sedation vacation in the mornings. Hypertension Fluctuating BP could be secondary to sympathetic discharge. Metoprolol IV PRN Pain medication as needed. Diabetes mellitus type 2 zbj-jenqzqs-nyhlirlof with hyperglycemia: On tube feeding. SSI. Titrate Lantus insulin VTE: Eliquis
[2020-06-01] MEDS: ASCORBIC ACID 500 MG TABLET PO SCH ×3 (10:13→21:01)
--- NOTE | 2020-06-01 10:54 | P.PN ---
Subjective Date of Service: 06/01/20 Primary Care Provider: [facility] Chief Complaint: Respiratory failure Respiratory failure oxygenation seems to be improving Review of Systems is unable to be obtained Physical Examination - Vital Signs Temperature: 96.6 F Blood Pressure: 103/66 Pulse: 90 Respirations: 30 Pulse Ox (%): 98 - Studies Medications List Reviewed: Yes Assessment & Plan - Problems (Diagnosis) (1) 2018 novel coronavirus detected Current Visit: Yes Status: Acute Plan: Respiratory failure patient has had 2 doses of ivermectin white count is mildly elevated pro calcitonin level is normal Dc doxycycline continue with Rocephin reduce dose of Solu-Medrol to b.i.d. advance endotracheal tube
[2020-06-01] MEDS: FENTANYL CITR 100 MCG/2 ML IV PRN (11:39)
[2020-06-02] MEDS: HYDROMORPHONE HCL 1 MG/ML INJ IV PRN ×3 (00:37→19:30)
[2020-06-02] MEDS: METOPROLOL TARTRATE 5 MG/5 ML INJ IV PRN ×4 (02:30→23:10)
[2020-06-02] MEDS: MIDAZOLAM HCL 100 MG in NA CHLORIDE 0.9% 80 ML IV PRN ×3 (03:00→21:42)
[2020-06-02] MEDS: CISATRACURIUM BESYLATE 80 MG in NA CHLORIDE 0.9% 160 ML IV PRN ×2 (05:28→07:58)
[2020-06-02 05:33] LABS: Arterial Blood Carboxyhemoglob 1.2 % (0-1.5); Blood Gas Oxyhemoglobin 90.5 % (94-97); Blood O2 Saturation 92.4 % (92-98.5)
[2020-06-02 05:37] LABS: Ferritin 1815.8 ng/mL (26-388)
[2020-06-02 05:43] LABS: C-Reactive Protein < 2.90 mg/L (<3.00)
[2020-06-02] MEDS: INSULIN -REGULAR HUMAN 50 UNIT/0.5 ML ML SQ SCH ×4 (05:48→18:00)
[2020-06-02 07:30] LABS: BUN Blood Urea Nitrogen 29 mg/dL (7-18); Bicarbonate 35 mmol/L (21-32); Glucose Level 69 mg/dL (74-106); Potassium 3.9 mmol/L (3.5-5.1); Sodium Level 141 mmol/L (136-145)
[2020-06-02] MEDS: METFORMIN ER 500 MG TAB PO SCH ×2 (07:46→17:00)
--- NOTE | 2020-06-02 07:55 | RAD REPORT ---
EXAM DESCRIPTION: RAD - Chest Single View - 06/02/2020 5:35 am CLINICAL HISTORY: Respiratory failure COMPARISON: Portable June 01 TECHNIQUE: AP portable chest image was obtained 06/02/2020 5:35 am . FINDINGS: Interstitial and airspace opacities of the left lung field are slightly improved. Overall interstitial opacification pattern throughout both lung severino similar or only fractionally improved. Differential since June 01 is slight. ET tube and feeding tube are unchanged. Heart and vasculature are normal. No measurable pleural effus ion and no pneumothorax. No acute bony abnormality seen. No acute aortic findings suspected. IMPRESSION: Patient show slight improvement in the bilateral lung parenchymal opacification pattern.
[2020-06-02] MEDS: SITAGLIPTIN PHOS 100 MG TAB PO SCH (09:00)
[2020-06-02] MEDS: INSULIN GLARGINE 100 UNITS/ML SQ SCH ×2 (09:00→20:58)
[2020-06-02] MEDS: THIAMINE 200 MG/2 ML INJ IVP SCH ×2 (09:00→19:54)
[2020-06-02] MEDS: MIDAZOLAM HCL 2 MG/2 ML INJ IV PRN ×2 (09:30→12:50)
[2020-06-02] MEDS: VITAMIN D 1000 UNIT TAB PO SCH (10:22)
[2020-06-02] MEDS: FLUCONAZOLE 100 MG TAB PO SCH (10:23)
[2020-06-02] MEDS: METHYLPREDNISOLONE 40 MG INJ IV SCH ×2 (10:23→19:53)
[2020-06-02] MEDS: ASCORBIC ACID 500 MG TABLET PO SCH ×3 (10:23→20:57)
[2020-06-02] MEDS: FAMOTIDINE 20 MG/2 ML VIAL IV SCH ×2 (10:23→19:53)
[2020-06-02] MEDS: APIXABAN 5 MG TABLET PO SCH ×2 (10:23→19:54)
[2020-06-02] MEDS: CEFTRIAXONE/SWI 1gm 1 GM/50 ML SYR IV SCH (10:23)
[2020-06-02] MEDS: VITAL HP 1,000 ML BOT RTH SCH (10:40)
--- NOTE | 2020-06-02 12:31 | P.PN ---
Subjective Date of Service: 06/02/20 Primary Care Provider: BARBARA mccarty Chief Complaint: Respiratory failure No change condition stable FiO2 80% ferritin level still elevated white count is also elevated Review of Systems is unable to be obtained Physical Examination - Vital Signs Temperature: 96.9 F Blood Pressure: 128/102 Pulse: 120 Respirations: 28 Pulse Ox (%): 93 - Studies Medications List Reviewed: Yes Assessment & Plan - Problems (Diagnosis) (1) 2019 novel coronavirus detected Current Visit: Yes Status: Acute Plan: Respiratory failure plan to use an index p.r.n. wean down on the joanna said adjust the endotracheal tube advanced of 1.5 cm continue with prone position ventilation labs reviewed
--- NOTE | 2020-06-02 13:14 | P.PN ---
Subjective Date of Service: 06/02/20 Primary Care Provider: BARBARA mccarty Chief Complaint: Respiratory failure No major changes. Leukocytosis fluctuates. Blood pressure and heart rate also fluctuate. Physical Examination - Vital Signs Temperature: 96.9 F Blood Pressure: 128/102 Pulse: 120 Respirations: 28 Pulse Ox (%): 93 - Physical Exam General: Other (Sedated) HEENT: Other (Intubated) Cardiovascular: No edema, Normal S1 S2, Other (Tachycardia) Gastrointestinal: Soft and benign, Non-distended Musculoskeletal: No swelling Integumentary: No rashes Neurological: Other (No focal deficit) - Studies Medications List Reviewed: Yes Assessment And Plan - Current Problems (Diagnosis) (1) Pneumonia due to COVID-19 virus Current Visit: Yes Status: Acute (2) Acute respiratory failure with hypoxia Current Visit: Yes Status: Acute (3) Leukocytosis Current Visit: Yes Status: Acute Physician Review Additional Text: Assessment acute respiratory failure secondary to Bilateral COVID-19 pneumonia with hypoxia leukocytosis Diabetes mellitus type 2, ygw-tndklyb-jgeiatpjl with hyperglycemia Obesity, BMI 33 Plan acute respiratory failure secondary to Bilateral COVID-19 pneumonia with hypoxia leukocytosis s/p Remdesivir and conv plasama Leukocytosis seems to fluctuate, repeat blood cultures: No growth. Pro calcitonin is negative. Sputum culture: GPC. Continue antibiotics. Continue Diflucan intubated 05/24 Pulmonary is following. guarded prognosis. Sedation vacation in the mornings if possible. Hypertension Fluctuating BP could be secondary to sympathetic discharge. Metoprolol IV PRN Pain medication as needed. May try Precedex for paroxysmal sympathetic hyperactivity. Diabetes mellitus type 2 spp-qbmziny-iznvzpqdc with hyperglycemia: On tube feeding. SSI. Titrate Lantus insulin VTE: Eliquis
[2020-06-02] MEDS: LORazepam 2 MG/ML VIAL IV PRN ×2 (14:44→22:00)
--- NOTE | 2020-06-02 20:15 | P.PN ---
Date of Service: 06/02/20 Nurse called and reported patient has nguyen hematuria. This is the second episode. Will discontinue Eliquis and monitor H/H and for further bleeding.
[2020-06-03] MEDS: HYDROMORPHONE HCL 1 MG/ML INJ IV PRN ×5 (00:10→21:00)
[2020-06-03] MEDS: INSULIN -REGULAR HUMAN 50 UNIT/0.5 ML ML SQ SCH ×4 (00:29→17:14)
[2020-06-03 04:51] LABS: Absolute Lymphocytes (CBC) 0.7 K/uL (0.7-4.9); Basophils % 0.1 % (0-1.3); Hematocrit 44.1 % (39.6-49.0); Lymphocytes % 4.4 % (15.3-44.8); MPV 8.8 fL (7.6-11.3); RBC Red Blood Cell Count 5.02 M/uL (4.33-5.43)
[2020-06-03] MEDS: CISATRACURIUM BESYLATE 80 MG in NA CHLORIDE 0.9% 160 ML IV PRN (05:10)
[2020-06-03 05:15] LABS: ALT/SGPT 142 U/L (12-78); AST/SGOT 32 U/L (15-37); Albumin 2.9 g/dL (3.4-5.0); Alkaline Phosphatase 124 U/L (45-117); BUN Blood Urea Nitrogen 31 mg/dL (7-18); Bicarbonate 32 mmol/L (21-32); Ferritin 1732.8 ng/mL (26-388); Glucose Level 189 mg/dL (74-106); Potassium 4.3 mmol/L (3.5-5.1); Protein, Total 6.8 g/dL (6.4-8.2); Sodium Level 139 mmol/L (136-145)
[2020-06-03] MEDS: VITAL HP 1,000 ML BOT RTH SCH (05:30)
[2020-06-03] MEDS: LORazepam 2 MG/ML VIAL IV PRN ×2 (07:58→14:16)
--- NOTE | 2020-06-03 08:05 | RAD REPORT ---
EXAM DESCRIPTION: Yoselin Single View06/03/2020 5:54 am CLINICAL HISTORY: Respiratory failure COMPARISON: May 28 FINDINGS: Endotracheal tube has tip well above the jewell. A feeding tube enters the stomach. The ti p is not included in the field of view. No significant change in moderate bilateral pulmonary opacities. The heart is normal size IMPRESSION: No significant change the bilateral pulmonary opacities
[2020-06-03] MEDS: VITAMIN D 1000 UNIT TAB PO SCH (08:14)
[2020-06-03] MEDS: FENTANYL CITR 100 MCG/2 ML IV PRN ×3 (08:14→20:00)
[2020-06-03] MEDS: CEFTRIAXONE/SWI 1gm 1 GM/50 ML SYR IV SCH (08:15)
[2020-06-03] MEDS: FAMOTIDINE 20 MG/2 ML VIAL IV SCH (08:15)
[2020-06-03] MEDS: FLUCONAZOLE 100 MG TAB PO SCH (08:15)
[2020-06-03] MEDS: SITAGLIPTIN PHOS 100 MG TAB PO SCH (08:15)
[2020-06-03] MEDS: METHYLPREDNISOLONE 40 MG INJ IV SCH ×2 (08:15→20:43)
[2020-06-03] MEDS: MIDAZOLAM HCL 2 MG/2 ML INJ IV PRN (08:15)
[2020-06-03] MEDS: METFORMIN ER 500 MG TAB PO SCH (08:16)
[2020-06-03] MEDS: MIDAZOLAM HCL 100 MG in NA CHLORIDE 0.9% 80 ML IV PRN ×2 (08:40→16:28)
[2020-06-03] MEDS: INSULIN GLARGINE 100 UNITS/ML SQ SCH ×2 (09:00→21:45)
[2020-06-03] MEDS: THIAMINE 200 MG/2 ML INJ IVP SCH ×2 (09:00→20:43)
[2020-06-03] MEDS: ASCORBIC ACID 500 MG TABLET PO SCH ×3 (09:00→20:44)
--- NOTE | 2020-06-03 09:12 | P.PN ---
Subjective Date of Service: 06/03/20 Primary Care Provider: [facility] Chief Complaint: Respiratory failure Subjective: No new changes (no significant changes, slowly weaning O2, pt remains intubated. yesterday had hematuria and eliquis dc'd nursing reports no hematuria overnight/this AM,laguna flushed) Review of Systems is unable to be obtained Physical Examination - Vital Signs Temperature: 98.4 F Blood Pressure: 77/59 Pulse: 78 Respirations: 30 Pulse Ox (%): 93 - Studies Medications List Reviewed: Yes Assessment & Plan Physician Review Additional Text: Physical Exam: Gen: NAD, intubated Neuro: opens eyes, does not follow commands HEENT: sclera anicteric Pulm: on mechanical ventilation, scattered crackles Abd: soft, non-distended Ext: no edema Problem List: acute respiratory failure secondary to Bilateral COVID-19 pneumonia with hypoxia leukocytosis Hematuria Diabetes mellitus type 2, aur-hmmksbz-odkfcsdae with hyperglycemia Obesity, BMI 33 Plan acute respiratory failure secondary to Bilateral COVID-19 pneumonia with hypoxia leukocytosis s/p Remdesivir and conv plasama Leukocytosis seems to fluctuate, repeat blood cultures: No growth. Pro calcitonin is negative. Sputum culture: GPC. on rocephin and diflucan intubated 05/24 Pulmonary is following. guarded prognosis. continue sedation holidays in AM if possible ferritin/CRP labile as well, ferritin decreased today CXR this AM mostly unchanged compared to prior Hematuria -reportedly had some hematuria yesterday for 2nd episode -Eliquis discontinued -laguna flushed and clear overnight/this morning, will further discuss with pulm, regarding re-initiation Hypertension BP very labile, possibly secondary to sympathetic discharge. Metoprolol IV PRN Pain medication as needed. balance between sedation / oxygenation and BP Diabetes mellitus type 2 trf-qancbfh-tjmvcztqd with hyperglycemia: On tube feeding. SSI. Titrate Lantus insulin as needed Dispo: intubated, wean O2, working on LTAC once weaned down /able to transfer Time Spent Managing Pts Care (In Minutes): 35
[2020-06-03 10:37] LABS: Arterial Blood Carboxyhemoglob 1.3 % (0-1.5); Blood Gas Oxyhemoglobin 89.6 % (94-97); Blood O2 Saturation 91.5 % (92-98.5)
--- NOTE | 2020-06-03 16:50 | P.PN ---
Subjective Date of Service: 06/03/20 Primary Care Provider: BARBARA mccarty Chief Complaint: Respiratory failure Patient's condition is stable no change wean down the oxygen Review of Systems is unable to be obtained Physical Examination - Vital Signs Temperature: 98.4 F Blood Pressure: 88/62 Pulse: 96 Respirations: 30 Pulse Ox (%): 88 - Studies Medications List Reviewed: Yes Assessment & Plan - Problems (Diagnosis) (1) 2018 novel coronavirus detected Current Visit: Yes Status: Acute Plan: Respiratory failure continue to wean down on the oxygen to ovoid any paralytic drugs she was it p.r.n. while in prone position levels ferritin levels are declining white count is also declining contain a sat of 88% on 70% FiO2 above 12 I think he will benefit from a tracheostomy
[2020-06-03] MEDS: APIXABAN 5 MG TABLET PO SCH (20:41)
[2020-06-03] MEDS: FAMOTIDINE 20 MG TAB PO SCH (20:43)
[2020-06-04] MEDS: CISATRACURIUM BESYLATE 80 MG in NA CHLORIDE 0.9% 160 ML IV PRN ×3 (00:02→19:15)
[2020-06-04] MEDS: FENTANYL CITR 100 MCG/2 ML IV PRN ×4 (00:30→14:58)
[2020-06-04] MEDS: HYDROMORPHONE HCL 1 MG/ML INJ IV PRN ×4 (02:00→17:52)
[2020-06-04] MEDS: LORazepam 2 MG/ML VIAL IV PRN ×4 (02:30→10:50)
[2020-06-04 05:13] LABS: Basophils % 0.1 % (0-1.3); Hematocrit 43.3 % (39.6-49.0); Lymphocytes % 1.7 % (15.3-44.8); MPV 8.5 fL (7.6-11.3)
[2020-06-04 05:14] LABS: Absolute Lymphocytes (CBC) 0.3 K/uL (0.7-4.9)
[2020-06-04 05:28] LABS: ALT/SGPT 112 U/L (12-78); AST/SGOT 36 U/L (15-37); Albumin 2.7 g/dL (3.4-5.0); Alkaline Phosphatase 117 U/L (45-117); BUN Blood Urea Nitrogen 33 mg/dL (7-18); Bicarbonate 33 mmol/L (21-32); Bilirubin Total 0.9 mg/dL (0.2-1.0); C-Reactive Protein 7.28 mg/L (<3.00); Ferritin 1648.8 ng/mL (26-388); Glucose Level 254 mg/dL (74-106); Potassium 4.3 mmol/L (3.5-5.1); Protein, Total 6.4 g/dL (6.4-8.2); Sodium Level 137 mmol/L (136-145)
[2020-06-04] MEDS: INSULIN -REGULAR HUMAN 50 UNIT/0.5 ML ML SQ SCH ×4 (06:46→17:51)
--- NOTE | 2020-06-04 07:54 | RAD REPORT ---
EXAM DESCRIPTION: Yoselin Single View06/04/2020 6:07 am CLINICAL HISTORY: Chest pain COMPARISON: none FINDINGS: Endotracheal tube has its tip 6.5 centimeters above the jewell. Feeding tube enters the s tomach. The tip is not included in the field of view. The heart is normal size Mild improvement in the bilateral pulmonary opacities IMPRESSION: Mild improvement in the bilateral pulmonary opacities The tip of an endotracheal tube 6.5 centimeters above the jewell
[2020-06-04] MEDS: INSULIN GLARGINE 100 UNITS/ML SQ SCH ×2 (08:47→21:37)
[2020-06-04] MEDS: THIAMINE 200 MG/2 ML INJ IVP SCH ×2 (08:48→21:37)
[2020-06-04] MEDS: VITAMIN D 1000 UNIT TAB PO SCH (08:48)
[2020-06-04] MEDS: ASCORBIC ACID 500 MG TABLET PO SCH ×3 (08:48→21:38)
[2020-06-04] MEDS: FLUCONAZOLE 100 MG TAB PO SCH (08:48)
[2020-06-04] MEDS: CEFTRIAXONE/SWI 1gm 1 GM/50 ML SYR IV SCH (08:49)
[2020-06-04] MEDS: FAMOTIDINE 20 MG TAB PO SCH ×2 (08:49→21:38)
[2020-06-04] MEDS: METHYLPREDNISOLONE 40 MG INJ IV SCH ×2 (08:49→21:37)
[2020-06-04] MEDS: SITAGLIPTIN PHOS 100 MG TAB PO SCH (08:49)
[2020-06-04] MEDS: APIXABAN 5 MG TABLET PO SCH (09:00)
--- NOTE | 2020-06-04 10:38 | P.PN ---
Subjective Date of Service: 06/04/20 Primary Care Provider: BARBARA mccarty Chief Complaint: Respiratory failure Subjective: Other (no acute events overnight. FiO2 down to 75% at times. Proning at times as well CXR with slight improvement of opacities) Review of Systems is unable to be obtained Physical Examination - Vital Signs Temperature: 99.1 F Blood Pressure: 107/78 Pulse: 95 Respirations: 31 Pulse Ox (%): 94 - Studies Medications List Reviewed: Yes Assessment & Plan Physician Review Additional Text: Physical Exam: Gen: NAD, intubated Neuro: opens eyes, does not follow commands HEENT: sclera anicteric Pulm: on mechanical ventilation, scattered crackles Abd: soft, non-distended Ext: no edema Problem List: acute respiratory failure secondary to Bilateral COVID-19 pneumonia with hypoxia leukocytosis Hematuria Diabetes mellitus type 2, pii-jwzfujv-bkczeynaz with hyperglycemia Obesity, BMI 33 Plan acute respiratory failure secondary to Bilateral COVID-19 pneumonia with hypoxia leukocytosis s/p Remdesivir and conv plasama, Leukocytosis seems to fluctuate, repeat blood cultures: No growth. Pro calcitonin is negative. Sputum culture: GPC. on rocephin and diflucan per pulm intubated 05/24 guarded prognosis - with very slight improvement the past few days continue sedation holidays in AM if possible - difficult due to patient fighting vent and desatting ferritin/CRP labile as well, but decreasing slightly Hematuria -reportedly had some hematuria 06/02, Eliquis discontinued at that time -laguna flushed and has remained clear. -Eliquis restarted on 06/03 evening Hypertension BP very labile, possibly secondary to sympathetic discharge. Metoprolol IV PRN. Pain medication PRN balance between sedation / oxygenation and BP Diabetes mellitus type 2 hst-pqcjqpi-asujsdpba with hyperglycemia: On tube feeding. SSI. on high dose Lantus, had hypoglycemia and has been held a few times recently, will decrease to 25u BID, will adjust as needed Dispo: intubated, wean O2, working on LTAC once weaned down /able to transfer Time Spent Managing Pts Care (In Minutes): 35
--- NOTE | 2020-06-04 11:50 | RAD REPORT ---
EXAM DESCRIPTION: Yoselin Single View06/04/2020 10:06 am CLINICAL HISTORY: Device placement endotracheal tube placement IMPRESSION: An endotracheal tube has been advanced. The tip lies 3.5 centimeters above the jewell
[2020-06-04] MEDS: ENOXAPARIN 60 MG/0.6 ML SQ SCH (13:00)
--- NOTE | 2020-06-04 14:57 | CON ---
Date of Consultation: 06/04/2020 Reason For Consultation: Tracheostomy tube placement. History Of Present Illness: Mr. Cartagena is a 54-year-old male who was admitted to the hospital on with COVID pneumonia. He was managed initially with conservative respiratory support, but developed increasing respiratory distress and required endotracheal intubation and mechanical ventila tion on May 24. Since that time, he has been maintained on mechanical ventilation with recent v entilator settings of 65% FiO2 and PEEP of 10. He has been placed in the prone position for about 4 hours per shift according to the nursing staff to aid in oxygenation. He has been stable over the la st several days hemodynamically and gets very agitated when his sedation is weaned. The patient was initially diagnosed with COVID on April [address] [facility]. Past Medical History: Diabetes type 2, obesity, right shoulder surgery, right knee surgery. Social History: Nonsmoker. Occasional alcohol. Family History: Noncontributory. Review of Systems: Unable to obtain due to patient's medical condition. Physical Examination: The patient is orally tracheally intubated. He is currently in the prone position. His laryngeal la ndmarks are easily palpable. His neck is not significantly obese. Remainder of physical exam is cruz ited due to patient's positioning and overall medical condition. Assessment: Respiratory failure, prolonged intubation, agitation, COVID-19 pneumonia. Plan: I attempted to contact the patient's significant other as is listed in the medical record, but was unable to connect with her. I will try to contact her later to obtain telephone consent. I spo ke with the nurse regarding need for n.p.o. after midnight and holding Lovenox. He will tentatively be posted for a tracheostomy in the operating room at 7:30 on June 05 unless we are unable to obta in consent. SAMM/WILLIAMS Voice ID: [id number] Report ID: [id number]
[2020-06-04] MEDS: MIDAZOLAM HCL 100 ML IV PRN (16:41)
--- NOTE | 2020-06-04 16:53 | P.PN ---
Subjective Date of Service: 06/04/20 Primary Care Provider: BARBARA mccarty Chief Complaint: Respiratory failure Improing o2 requirement declining. Still has agitation Physical Examination - Vital Signs Temperature: 97.1 F Blood Pressure: 108/67 Pulse: 94 Respirations: 30 Pulse Ox (%): 91 - Studies Medications List Reviewed: Yes Assessment & Plan - Problems (Diagnosis) (1) 2018 novel coronavirus detected Current Visit: Yes Status: Acute Plan: Resp failure .Stable to have trach. clinically improving. ENT agreed to proceed with trach am. Ferrtin level still high. S/p Ivermectin. Fio2 reduced to 60%. Eliquis on hold. Repeat dos eof ivermection. Advance Et Tube
[2020-06-04] MEDS ORDERED: IVERMECTIN 3 MG TABLET PO ONE (18:00)
[2020-06-05] MEDS: propofoL 1,000 MG/100 ML VIAL IV PRN ×3 (00:05→18:43)
[2020-06-05] MEDS: INSULIN -REGULAR HUMAN 50 UNIT/0.5 ML ML SQ SCH ×4 (00:19→18:00)
[2020-06-05] MEDS: MIDAZOLAM HCL 100 ML IV PRN (00:45)
[2020-06-05 05:03] LABS: Absolute Lymphocytes (CBC) 0.4 K/uL (0.7-4.9); Basophils % 0.3 % (0-1.3); Hematocrit 35.8 % (39.6-49.0); Lymphocytes % 2.5 % (15.3-44.8); MPV 8.7 fL (7.6-11.3); RBC Red Blood Cell Count 4.08 M/uL (4.33-5.43)
[2020-06-05 05:36] LABS: ALT/SGPT 86 U/L (12-78); AST/SGOT 25 U/L (15-37); Albumin 2.2 g/dL (3.4-5.0); Alkaline Phosphatase 106 U/L (45-117); BUN Blood Urea Nitrogen 27 mg/dL (7-18); Bicarbonate 32 mmol/L (21-32); Bilirubin Total 0.7 mg/dL (0.2-1.0); C-Reactive Protein 2.93 mg/L (<3.00); Ferritin 1393.7 ng/mL (26-388); Glucose Level 203 mg/dL (74-106); Magnesium 2.3 mg/dL (1.8-2.4); Potassium 4.3 mmol/L (3.5-5.1); Protein, Total 5.3 g/dL (6.4-8.2); Sodium Level 138 mmol/L (136-145)
[2020-06-05] MEDS ORDERED: Phenylephrine HCl 10 MG/ML 1 ML VIAL ONE ×3 (06:58→07:40)
[2020-06-05] MEDS ORDERED: MIDAZOLAM HCL 2 MG/2 ML INJ ONE (06:58)
[2020-06-05] MEDS ORDERED: FENTANYL CITR 100 MCG/2 ML ONE (06:58)
[2020-06-05] MEDS ORDERED: propofoL 200 MG/20 ML VIAL IV ONE (06:58)
[2020-06-05] MEDS ORDERED: LIDOCAINE 2% MPF 5 ML VIAL ONE (06:58)
[2020-06-05] MEDS ORDERED: VECURONIUM 10 MG/VIAL IV ONE ×2 (06:59→08:02)
[2020-06-05] MEDS ORDERED: NA CHLORIDE 0.9% 1,000 ML ONE (07:02)
[2020-06-05] MEDS ORDERED: LIDOCAINE 1% W/EPI 1:100,000 MDV 50 ML VIAL ONE (07:14)
--- NOTE | 2020-06-05 07:20 | RAD REPORT ---
EXAM DESCRIPTION: RAD - Chest Single View - 06/05/2020 5:41 am CLINICAL HISTORY: covid pnuemonia' COMPARISON: Portable June 04 TECHNIQUE: AP portable chest image was obtained 06/05/2020 5:41 am . FINDINGS: Left greater than right pneumonia findings are still present. No significant change from p rior day imaging when adjusting for slight differences in film technique and positioning. ET tube and feeding tube remain in good position. Tip of the feeding tube is off the field of view. Heart and vasculature are normal. No measurable pleural effusion and no pneumothorax. IMPRESSION: Stable chest.
[2020-06-05] MEDS ORDERED: NA CHLORIDE 0.9% 100 ML IV ONE (07:41)
[2020-06-05] MEDS ORDERED: CEFAZOLIN SODIUM 1 GM/VIAL ONE (07:46)
[2020-06-05] MEDS ORDERED: NS 0.9% VIAL 20 ML ONE ×2 (07:47→07:58)
[2020-06-05] MEDS ORDERED: ROCURONIUM 50 MG/5 ML VIAL IV ONE (07:58)
--- NOTE | 2020-06-05 07:58 | P.BOP ---
Preoperative diagnosis: prolonged mechanical ventilation, COVID PNA Postoperative diagnosis: Same Primary procedure: Tracheotomy Exercise Physiology Professor: Ananya Lugo Estimated blood loss: <5ml Specimen: none Findings: removal of cervical fat, division of thyroid isthmus Anesthesia: General Complications: None Implants: 8.0 [employer] Shiley Transferred to: ICU Condition: Serious
[2020-06-05] MEDS: SITAGLIPTIN PHOS 100 MG TAB PO SCH (08:48)
[2020-06-05] MEDS: FLUCONAZOLE 100 MG TAB PO SCH (08:48)
[2020-06-05] MEDS: FAMOTIDINE 20 MG TAB PO SCH ×2 (08:49→21:42)
[2020-06-05] MEDS: ASCORBIC ACID 500 MG TABLET PO SCH ×3 (08:49→21:42)
[2020-06-05] MEDS: METHYLPREDNISOLONE 40 MG INJ IV SCH ×2 (08:49→21:51)
[2020-06-05] MEDS: INSULIN GLARGINE 100 UNITS/ML SQ SCH ×2 (08:50→21:00)
[2020-06-05] MEDS: CEFTRIAXONE/SWI 1gm 1 GM/50 ML SYR IV SCH (08:50)
[2020-06-05] MEDS: CISATRACURIUM INJECTION 2 MG/ML (10 ML Vial) IV PRN (08:50)
[2020-06-05] MEDS: ENOXAPARIN 60 MG/0.6 ML SQ SCH (08:51)
[2020-06-05] MEDS: THIAMINE 200 MG/2 ML INJ IVP SCH ×2 (09:00→21:42)
[2020-06-05] MEDS ORDERED: ENOXAPARIN 60 MG/0.6 ML SQ SCH (09:00)
[2020-06-05 09:33] LABS: Blood Morphology Comment NOT SEEN (NOT SEEN); Platelet Estimate ADEQ
[2020-06-05] MEDS: VITAMIN D 1000 UNIT TAB PO SCH (10:29)
[2020-06-05] MEDS: HYDROMORPHONE HCL 1 MG/ML INJ IV PRN ×2 (11:25→21:42)
--- NOTE | 2020-06-05 14:42 | P.PN ---
Subjective Date of Service: 06/05/20 Primary Care Provider: BARBARA mccarty Chief Complaint: Respiratory failure Patient is status post trach condition stable Review of Systems is unable to be obtained Physical Examination - Vital Signs Temperature: 97.1 F Blood Pressure: 79/61 Pulse: 68 Respirations: 30 Pulse Ox (%): 90 - Studies Medications List Reviewed: Yes Assessment & Plan - Problems (Diagnosis) (1) 2018 novel coronavirus detected Current Visit: Yes Status: Acute Plan: Respiratory failure status post trach patient's oxygen levels are declining he is on a peep of 12 FiO2 70% chest x-ray no Change patient's ferritin level left- sided declining white count is also declining continue with low-dose Solu-Medrol start full anticoagulation tomorrow evaluate for LTAC patient is on tube feeds
--- NOTE | 2020-06-05 15:19 | P.PN ---
Subjective Date of Service: 06/05/20 Primary Care Provider: BARBARA mccarty Chief Complaint: Respiratory failure Subjective: Other (s/p trach today, patient tolerating ventilator with FIO2: 70%) Review of Systems is unable to be obtained Physical Examination - Vital Signs Temperature: 97.1 F Blood Pressure: 79/61 Pulse: 68 Respirations: 30 Pulse Ox (%): 90 - Studies Medications List Reviewed: Yes Assessment & Plan Physician Review Additional Text: Physical Exam: Gen: NAD, s/p trach, on ventilator Neuro: opens eyes, follows basic commands (squeezes hand, blinks eyes) HEENT: sclera anicteric Pulm: on mechanical ventilation, scattered crackles Abd: soft, non-distended Ext: no edema Problem List: acute respiratory failure secondary to Bilateral COVID-19 pneumonia with hypoxia leukocytosis Hematuria Diabetes mellitus type 2, snh-mrkwitp-xunqjkmnx with hyperglycemia Obesity, BMI 33 Plan acute respiratory failure secondary to Bilateral COVID-19 pneumonia with hypoxia leukocytosis s/p Remdesivir and conv plasama, labile leukocytosis over the past 1-2 weeks, Procal negative. Sputum culture: GPC. on rocephin and diflucan per pulm intubated 05/24, trach on 06/05 ferritin/CRP labile as well, but decreasing slightly balance between sedation and blood pressure Hematuria -reportedly had some hematuria 06/02, Eliquis discontinued at that time -laguna flushed and has remained clear. -Eliquis restarted on 06/03 evening Hypertension difficult balance between sedation / oxygenation and BP Diabetes mellitus type 2 zzq-emcvreh-oisitzslw with hyperglycemia: On tube feeding. SSI. on high dose Lantus, had hypoglycemia and has been held a few times recently, will decrease to 25u BID, will adjust as needed -held today since tube feeds held for trach Dispo: on ventilator, s/p trach, wean O2, working on LTAC once weaned down /able to transfer - SS/CM working on appeal Time Spent Managing Pts Care (In Minutes): 40
[2020-06-05] MEDS: LORazepam 2 MG/ML VIAL IV PRN (16:53)
[2020-06-05] MEDS: FENTANYL CITR 100 MCG/2 ML IV PRN (16:53)
[2020-06-06] MEDS: propofoL 1,000 MG/100 ML VIAL IV PRN ×2 (01:27→09:09)
[2020-06-06] MEDS: HYDROMORPHONE HCL 1 MG/ML INJ IV PRN ×4 (02:11→20:00)
[2020-06-06 05:10] LABS: Absolute Lymphocytes (CBC) 0.3 K/uL (0.7-4.9); Basophils % 0.1 % (0-1.3); Hematocrit 33.7 % (39.6-49.0); Lymphocytes % 2.7 % (15.3-44.8); MPV 8.9 fL (7.6-11.3); RBC Red Blood Cell Count 3.79 M/uL (4.33-5.43)
[2020-06-06 05:24] LABS: BUN Blood Urea Nitrogen 26 mg/dL (7-18); Bicarbonate 30 mmol/L (21-32); Ferritin 1442.3 ng/mL (26-388); Glucose Level 177 mg/dL (74-106); Magnesium 2.2 mg/dL (1.8-2.4); Potassium 3.7 mmol/L (3.5-5.1); Sodium Level 140 mmol/L (136-145)
[2020-06-06] MEDS: INSULIN -REGULAR HUMAN 50 UNIT/0.5 ML ML SQ SCH ×4 (07:09→18:00)
[2020-06-06] MEDS: MIDAZOLAM HCL 2 MG/2 ML INJ IV PRN ×3 (08:30→23:08)
[2020-06-06] MEDS: ENOXAPARIN 60 MG/0.6 ML SQ SCH (09:00)
[2020-06-06] MEDS: CISATRACURIUM INJECTION 2 MG/ML (10 ML Vial) IV PRN ×4 (09:08→23:08)
[2020-06-06] MEDS: FENTANYL CITR 100 MCG/2 ML IV PRN ×3 (10:19→20:49)
[2020-06-06] MEDS: LORazepam 2 MG/ML VIAL IV PRN ×3 (10:19→21:25)
[2020-06-06] MEDS: CEFTRIAXONE/SWI 1gm 1 GM/50 ML SYR IV SCH (10:27)
[2020-06-06] MEDS: METHYLPREDNISOLONE 40 MG INJ IV SCH ×2 (10:27→20:45)
[2020-06-06] MEDS: FAMOTIDINE 20 MG TAB PO SCH ×2 (10:28→20:45)
[2020-06-06] MEDS: VITAMIN D 1000 UNIT TAB PO SCH (10:28)
[2020-06-06] MEDS: FLUCONAZOLE 100 MG TAB PO SCH (10:28)
[2020-06-06] MEDS: INSULIN GLARGINE 100 UNITS/ML SQ SCH ×2 (10:30→20:45)
[2020-06-06] MEDS: SITAGLIPTIN PHOS 100 MG TAB PO SCH (10:30)
[2020-06-06] MEDS: ASCORBIC ACID 500 MG TABLET PO SCH ×3 (10:32→20:45)
[2020-06-06] MEDS: THIAMINE 200 MG/2 ML INJ IVP SCH ×2 (10:32→20:45)
--- NOTE | 2020-06-06 12:01 | P.PN ---
Subjective Date of Service: 06/06/20 Primary Care Provider: BARBARA mccarty Chief Complaint: Respiratory failure Status post trach patient continues to be severely agitated requiring considerable amounts of sedation Review of Systems is unable to be obtained Physical Examination - Vital Signs Temperature: 98.7 F Blood Pressure: 150/101 Pulse: 125 Respirations: 21 Pulse Ox (%): 94 - Physical Exam General: Unresponsive Neck: Supple Respiratory: Normal air movement Cardiovascular: No edema, Normal S1 S2 - Studies Medications List Reviewed: Yes Assessment & Plan - Problems (Diagnosis) (1) 2019 novel coronavirus detected Current Visit: Yes Status: Acute Plan: Patient is clinically improving oxygen requirements are declining status post tracheostomy resume Eliquis white count is declining ferritin levels are still v david high increase the dose of Solu-Medrol schedule fentanyl patch angio do not due to extreme agitation
[2020-06-06] MEDS: ZIPRASIDONE MESYLA 20 MG/VIAL IM SCH ×2 (12:05→22:54)
[2020-06-06] MEDS: FENTANYL 25 MCG/PATCH TD SCH (12:05)
[2020-06-06 13:21] LABS: Urine Bacteria <20 /HPF (NONE SEEN); Urine RBC TNTC /HPF (NONE SEEN)
[2020-06-06] MEDS: MIDAZOLAM HCL 100 ML IV PRN (18:13)
[2020-06-06] MEDS ORDERED: APIXABAN 5 MG TABLET PO SCH (21:00)
--- NOTE | 2020-06-06 21:55 | P.PN ---
Subjective Date of Service: 06/06/20 Primary Care Provider: BARBARA mccarty Chief Complaint: Respiratory failure Subjective: Improving (slowly improving, FIO2 coming down. Some hematuria again today - peach-colored urine. intermittently follows commands) Review of Systems is unable to be obtained Physical Examination - Vital Signs Temperature: 98.3 F Blood Pressure: 148/97 Pulse: 120 Respirations: 27 Pulse Ox (%): 91 - Studies Medications List Reviewed: Yes Assessment & Plan Physician Review Additional Text: Physical Exam: Gen: NAD, s/p trach, on ventilator Neuro: opens eyes, shakes/nods heads - not completely appropriate at times / to certain questions HEENT: sclera anicteric Pulm: on mechanical ventilation, scattered crackles Abd: soft, non-distended Ext: no edema Laguna: blood-tinged urine Problem List: acute respiratory failure secondary to Bilateral COVID-19 pneumonia with hypoxia leukocytosis Hematuria Diabetes mellitus type 2, ixm-qaqixpt-zuvrtnvxg with hyperglycemia Obesity, BMI 33 Plan acute respiratory failure secondary to Bilateral COVID-19 pneumonia with hypoxia leukocytosis s/p Remdesivir and conv plasama, labile leukocytosis over the past 1-2 weeks, Procal negative. Sputum culture: GPC. on rocephin and diflucan per pulm intubated 05/24, trach on 06/05 ferritin/CRP labile as well, but overall seems to be trending down difficult balance between sedation and blood pressure Hematuria -reportedly had some hematuria 06/02, Eliquis discontinued at that time -laguna flushed and has remained clear. -lovenox restarted, again with hematuria today will hold Hypertension difficult balance between sedation / oxygenation and BP Diabetes mellitus type 2 gxu-ltnsgqu-fmnxweylj with hyperglycemia: On tube feeding. SSI. gs-180s, will decrease to 20u BID tomorrow Dispo: on ventilator, s/p trach, wean O2. appropriate for LTACH insurance denied appeal for patient's denial Time Spent Managing Pts Care (In Minutes): 40
[2020-06-07] MEDS: INSULIN -REGULAR HUMAN 50 UNIT/0.5 ML ML SQ SCH ×4 (00:18→17:56)
[2020-06-07] MEDS: HYDROMORPHONE HCL 1 MG/ML INJ IV PRN ×5 (01:00→21:30)
[2020-06-07] MEDS: FENTANYL CITR 100 MCG/2 ML IV PRN ×2 (04:30→17:56)
[2020-06-07] MEDS: LORazepam 2 MG/ML VIAL IV PRN ×5 (04:30→21:30)
[2020-06-07] MEDS: MIDAZOLAM HCL 2 MG/2 ML INJ IV PRN ×2 (05:00→07:33)
[2020-06-07 05:26] LABS: Absolute Lymphocytes (CBC) 0.8 K/uL (0.7-4.9); Basophils % 0.8 % (0-1.3); Hematocrit 41.8 % (39.6-49.0); Lymphocytes % 4.8 % (15.3-44.8); MPV 9.2 fL (7.6-11.3); RBC Red Blood Cell Count 4.67 M/uL (4.33-5.43)
[2020-06-07 06:05] LABS: BUN Blood Urea Nitrogen 24 mg/dL (7-18); Bicarbonate 29 mmol/L (21-32); Glucose Level 212 mg/dL (74-106); Magnesium 2.4 mg/dL (1.8-2.4); Potassium 4.2 mmol/L (3.5-5.1); Sodium Level 141 mmol/L (136-145)
[2020-06-07 06:19] LABS: Ferritin 2323.6 ng/mL (26-388)
[2020-06-07] MEDS: CISATRACURIUM INJECTION 2 MG/ML (10 ML Vial) IV PRN ×4 (06:40→17:04)
[2020-06-07] MEDS: INSULIN GLARGINE 100 UNITS/ML SQ SCH ×2 (07:32→22:03)
[2020-06-07] MEDS: ZIPRASIDONE MESYLA 20 MG/VIAL IM SCH ×2 (07:33→21:12)
[2020-06-07] MEDS: THIAMINE 200 MG/2 ML INJ IVP SCH ×2 (07:33→21:12)
[2020-06-07] MEDS: WATER FOR INJ,STERILE 10 ML IM PRN ×2 (07:33→21:13)
[2020-06-07] MEDS: METHYLPREDNISOLONE 40 MG INJ IV SCH ×2 (07:33→21:00)
[2020-06-07] MEDS: VITAMIN D 1000 UNIT TAB PO SCH (07:35)
[2020-06-07] MEDS: FLUCONAZOLE 100 MG TAB PO SCH (07:35)
[2020-06-07] MEDS: MIDAZOLAM HCL 100 ML IV PRN ×2 (07:35→17:57)
[2020-06-07] MEDS: FAMOTIDINE 20 MG TAB PO SCH ×2 (07:36→21:11)
[2020-06-07] MEDS: CEFTRIAXONE/SWI 1gm 1 GM/50 ML SYR IV SCH (07:38)
[2020-06-07] MEDS: ASCORBIC ACID 500 MG TABLET PO SCH ×3 (07:38→21:12)
[2020-06-07] MEDS ORDERED: ENOXAPARIN 60 MG/0.6 ML SQ SCH (09:00)
--- NOTE | 2020-06-07 10:56 | P.PN ---
Subjective Date of Service: 06/07/20 Primary Care Provider: BARBARA mccarty Chief Complaint: Respiratory failure Subjective: Other (overall seems to be slowly improving. hematuria noted yesterday and overnight. possibly traumatic from laguna - removed this morning. Nursing reports patient is very agitated as this anxious when coming off sedation) Review of Systems is unable to be obtained Physical Examination - Vital Signs Temperature: 98.2 F Blood Pressure: 88/67 Pulse: 70 Respirations: 30 Pulse Ox (%): 100 - Studies Medications List Reviewed: Yes Assessment & Plan Physician Review Additional Text: Physical Exam: Gen: NAD, s/p trach, on ventilator Neuro: opens eyes, squeezes hand on command HEENT: sclera anicteric, minimal dried blood around trach Pulm: on mechanical ventilation, scattered crackles Abd: soft, non-distended Ext: no edema Problem List: acute respiratory failure secondary to Bilateral COVID-19 pneumonia with hypoxia leukocytosis Hematuria Diabetes mellitus type 2, akk-efjmmho-dsgvsthju with hyperglycemia Obesity, BMI 33 Plan acute respiratory failure secondary to Bilateral COVID-19 pneumonia with hypoxia leukocytosis s/p Remdesivir and conv plasama, labile leukocytosis over the past 1-2 weeks, Procal negative. Sputum culture: GPC. on rocephin and diflucan per pulm intubated 05/24, trach on 06/05 ferritin/CRP labile as well, was trending down, but today, increased to > 2000 difficult balance between sedation and blood pressure due to patient's agitation/anxiety once more awake/alert Hematuria -recurrent hematuria, likely from trauma with patient agitated and may have kicked laugna tubing -will remove laguna, seemed to be nguyen blood yesterday, more dilute earlier this morning before laguna was removed -after void, if clear, will give lovenox Hypertension difficult balance between sedation / oxygenation and BP Diabetes mellitus type 2 dar-uvryoqg-dujmgcbgz with hyperglycemia: On tube feeding. SSI. well controlled, continue 20u BID, had slightly low-end glc the past few days Dispo: on ventilator, s/p trach, wean O2. appropriate for LTACH insurance denied appeal for LTACH. SW/CM considering other options Time Spent Managing Pts Care (In Minutes): 40
[2020-06-07] MEDS ORDERED: FAMOTIDINE 20 MG/2 ML VIAL IV ONE (18:09)
--- NOTE | 2020-06-07 19:57 | RAD REPORT ---
EXAM DESCRIPTION: RAD - Chest Single View - 06/06/2020 11:01 pm CLINICAL HISTORY: 54 years Male S/P PICC insertion TECHNIQUE: One view of the chest. COMPARISON: No prior exams provided for comparison. FINDINGS: Tracheostomy tube in place. Nasogastric tube terminates beyond the distal stomach. Right-s ided PICC line tip projects over the SVC. Hazy airspace infiltrates again seen throughout both lungs, densest in the left lower lobe. Possible trace pleural fluid. No pneumothorax. Normal cardiomediastinal silhouette. No acute osseous lesion. IMPRESSION: Lines and tubes as described. Diffuse airspace infiltrates throughout both lungs, denses t in the left lower lobe. Possible trace pleural fluid. Electronically signed by: Pamela Coombs MD 06/06/2020 11:18 PM [employer] Due to temporary technical issues with the PACS/Fluency reporting system, reports are being signed by the in house radiologists without review as a courtesy to insure prompt reporting. The interpreting radiologist is fully responsible for the content of the report.
[2020-06-07] MEDS ORDERED: METHYLPREDNISOLONE 125 MG INJ ONE (20:57)
[2020-06-07] MEDS: APIXABAN 5 MG TABLET PO SCH (21:11)
[2020-06-08] MEDS: LORazepam 2 MG/ML VIAL IV PRN ×6 (02:00→20:51)
[2020-06-08] MEDS: HYDROMORPHONE HCL 1 MG/ML INJ IV PRN ×6 (02:00→20:51)
[2020-06-08] MEDS: CISATRACURIUM INJECTION 2 MG/ML (10 ML Vial) IV PRN ×7 (02:20→21:32)
[2020-06-08] MEDS: MIDAZOLAM HCL 2 MG/2 ML INJ IV PRN ×4 (02:20→21:19)
[2020-06-08] MEDS: FENTANYL CITR 100 MCG/2 ML IV PRN ×5 (02:35→21:05)
[2020-06-08 05:25] LABS: Hematocrit 37.5 % (39.6-49.0); MPV 9.1 fL (7.6-11.3); RBC Red Blood Cell Count 4.26 M/uL (4.33-5.43)
[2020-06-08 06:18] LABS: C-Reactive Protein 22.6 mg/L (<3.00); Ferritin 1813.5 ng/mL (26-388)
[2020-06-08] MEDS: INSULIN -REGULAR HUMAN 50 UNIT/0.5 ML ML SQ SCH ×4 (06:34→17:22)
--- NOTE | 2020-06-08 07:42 | RAD REPORT ---
EXAM DESCRIPTION: RAD - Chest Single View - 06/08/2020 6:40 am CLINICAL HISTORY: covidpneumonia COMPARISON: June 06, June 05 TECHNIQUE: AP portable chest image was obtained 06/08/2020 6:40 am . FINDINGS: Lung volumes are low. Slight respiratory motion degradation is present. Interstitial and p atchy alveolar opacities are present. Adjusting for the motion the lung parenchyma opacification has not changed. Heart size is normal. Pulmonary vasculature stable. Trach tube and feeding tube are unch anged. No measurable pleural effusion and no pneumothorax. No acute bony abnormality seen. No acute a ortic findings suspected. IMPRESSION: Bilateral lung parenchymal opacification stable from June 06.
[2020-06-08] MEDS: MIDAZOLAM HCL 100 ML IV PRN (08:41)
[2020-06-08] MEDS: METHYLPREDNISOLONE 40 MG INJ IV SCH ×2 (09:00→21:18)
[2020-06-08] MEDS: VITAMIN D 1000 UNIT TAB PO SCH (09:19)
[2020-06-08] MEDS: THIAMINE 200 MG/2 ML INJ IVP SCH ×2 (09:19→21:18)
[2020-06-08] MEDS: CEFTRIAXONE/SWI 1gm 1 GM/50 ML SYR IV SCH (09:20)
[2020-06-08] MEDS: INSULIN GLARGINE 100 UNITS/ML SQ SCH ×2 (09:20→21:46)
[2020-06-08] MEDS: FAMOTIDINE 20 MG TAB PO SCH ×2 (09:20→21:18)
[2020-06-08] MEDS: FLUCONAZOLE 100 MG TAB PO SCH (09:20)
[2020-06-08] MEDS: ASCORBIC ACID 500 MG TABLET PO SCH ×3 (09:20→21:18)
[2020-06-08] MEDS: APIXABAN 5 MG TABLET PO SCH ×2 (09:20→21:18)
--- NOTE | 2020-06-08 09:48 | P.PN ---
Subjective Date of Service: 06/08/20 Primary Care Provider: BARBARA mccarty Chief Complaint: Respiratory failure Subjective: Other (Failed voiding trial overnight x2, Laguna replaced. Difficult to balance agitation and hypotension. When patient is more awake a fight the ventilator and oxygen saturation drops. No hematuria noted in Laguna overnight.) Review of Systems is unable to be obtained Physical Examination - Vital Signs Temperature: 96.5 F Blood Pressure: 97/75 Pulse: 64 Respirations: 30 Pulse Ox (%): 93 - Studies Medications List Reviewed: Yes Assessment & Plan Physician Review Additional Text: Physical Exam: Gen: NAD, s/p trach, on ventilator Neuro: opens eyes, squeezes hand on command HEENT: sclera anicteric CV: sinus tachycardia 90s-115 - high when agitated Pulm: on mechanical ventilation, nonlabored, tachypneic Abd: soft, non-distended Ext: no edema, no rash Problem List: acute respiratory failure secondary to Bilateral COVID-19 pneumonia with hypoxia leukocytosis Hematuria Diabetes mellitus type 2, kyu-nokkpfv-mrnqarlyv with hyperglycemia Obesity, BMI 33 Plan acute respiratory failure secondary to Bilateral COVID-19 pneumonia with hypoxia leukocytosis s/p Remdesivir and conv plasama, labile leukocytosis over the past 1-2 weeks, Procal negative. Sputum culture: G PC. on rocephin and diflucan per pulm intubated 05/24, trach on 06/05 ferritin/CRP labile as well, was trending down, increased on 06/07, down again today difficult balance between sedation and blood pressure due to patient's agitation/anxiety once more awake/alert Hematuria -recurrent hematuria, likely from trauma with patient agitated and may have kicked laguna tubing -failed voiding trials night of 06/07, laguna replaced -risk for blood clot is very high given severe covid infection, discussed with pulm and will continue eliquis for now -monitor for hematuria Hypertension difficult balance between sedation / oxygenation and BP Diabetes mellitus type 2 vzb-xvinmiw-rbeaqqxqk with hyperglycemia: On tube feeding. SSI. well controlled, continue 20u BID Dispo: on ventilator, s/p trach, wean O2. appropriate for LTACH insurance denied appeal for LTACH. SW/CM considering other options Time Spent Managing Pts Care (In Minutes): 35
--- NOTE | 2020-06-08 09:54 | P.PN ---
Subjective Date of Service: 06/08/20 Primary Care Provider: BARBARA mccarty Chief Complaint: Respiratory failure Patient's condition is stable is still continues to remain extremely agitated times requiring considerable amount of sedation and intermittent paralytic medication Review of Systems is unable to be obtained Physical Examination - Vital Signs Temperature: 96.5 F Blood Pressure: 97/75 Pulse: 64 Respirations: 30 Pulse Ox (%): 93 - Physical Exam General: Unresponsive Respiratory: Clear to auscultation bilaterally Cardiovascular: Normal S1 S2, Edema - Studies Medications List Reviewed: Yes Assessment & Plan - Problems (Diagnosis) (1) 2019 novel coronavirus detected Current Visit: Yes Status: Acute Plan: Respiratory failure severe persistent agitation white count is declining a ferritin levels are also declining overall his oxygen requirements are rate declining and becomes very agitated than the is a drop in his saturation this early no progression on his chest x-ray Kelly catheter placed again no evidence of hematuria blood sugars controlled Dc Rocephin
[2020-06-08] MEDS ORDERED: MIDAZOLAM HCL IV PRN (12:30)
[2020-06-08] MEDS ORDERED: NA CHLORIDE 0.9% IV PRN (12:30)
[2020-06-08] MEDS: ZIPRASIDONE MESYLA 20 MG/VIAL IM SCH ×2 (13:30→21:19)
[2020-06-08 16:42] LABS: Arterial Blood Carboxyhemoglob 1.5 % (0-1.5); Blood Gas Oxyhemoglobin 95.7 % (94-97); Blood O2 Saturation 98.2 % (92-98.5)
[2020-06-08] MEDS: VITAL HP 1,000 ML BOT RTH SCH (21:00)
[2020-06-08] MEDS ORDERED: FAMOTIDINE 20 MG/2 ML VIAL IV ONE (21:03)
[2020-06-08] MEDS: WATER FOR INJ,STERILE 10 ML IM PRN (21:19)
[2020-06-09] MEDS: HYDROMORPHONE HCL 1 MG/ML INJ IV PRN ×2 (01:02→05:41)
[2020-06-09] MEDS: INSULIN -REGULAR HUMAN 50 UNIT/0.5 ML ML SQ SCH ×4 (01:02→16:41)
[2020-06-09] MEDS: LORazepam 2 MG/ML VIAL IV PRN ×4 (01:03→17:52)
[2020-06-09] MEDS: FENTANYL CITR 100 MCG/2 ML IV PRN ×3 (01:15→15:22)
[2020-06-09] MEDS: CISATRACURIUM INJECTION 2 MG/ML (10 ML Vial) IV PRN ×5 (01:15→18:26)
[2020-06-09] MEDS ORDERED: LORazepam 2 MG/ML VIAL IV ONE (02:00)
[2020-06-09] MEDS: MIDAZOLAM HCL 2 MG/2 ML INJ IV PRN ×3 (03:09→18:26)
[2020-06-09 05:26] LABS: Absolute Lymphocytes (CBC) 0.3 K/uL (0.7-4.9); Basophils % 0.2 % (0-1.3); Hematocrit 39.1 % (39.6-49.0); Lymphocytes % 2.1 % (15.3-44.8); RBC Red Blood Cell Count 4.43 M/uL (4.33-5.43)
[2020-06-09 05:37] LABS: BUN Blood Urea Nitrogen 20 mg/dL (7-18); Bicarbonate 34 mmol/L (21-32); Ferritin 1792.6 ng/mL (26-388); Glucose Level 202 mg/dL (74-106); Potassium 3.8 mmol/L (3.5-5.1); Sodium Level 140 mmol/L (136-145)
[2020-06-09 07:32] LABS: Blood Morphology Comment NOT SEEN (NOT SEEN); Platelet Estimate ADEQ
[2020-06-09] MEDS ORDERED: MIDAZOLAM HCL IV PRN (08:12)
[2020-06-09] MEDS ORDERED: HYDROMORPHONE HCL 2 MG/ML inj ONE (08:19)
[2020-06-09] MEDS: HYDROMORPHONE HCL 2 MG/ML inj IV PRN ×4 (08:19→17:47)
[2020-06-09] MEDS: FENTANYL 25 MCG/PATCH TD SCH (09:00)
[2020-06-09] MEDS: INSULIN GLARGINE 100 UNITS/ML SQ SCH ×2 (09:34→21:00)
[2020-06-09] MEDS: THIAMINE 200 MG/2 ML INJ IVP SCH ×2 (09:34→21:55)
[2020-06-09] MEDS: METHYLPREDNISOLONE 40 MG INJ IV SCH ×2 (09:34→21:55)
[2020-06-09] MEDS: APIXABAN 5 MG TABLET PO SCH ×2 (09:38→21:55)
[2020-06-09] MEDS: FAMOTIDINE 20 MG TAB PO SCH ×2 (09:41→21:55)
[2020-06-09] MEDS: ASCORBIC ACID 500 MG TABLET PO SCH ×3 (09:41→21:55)
[2020-06-09] MEDS: VITAMIN D 1000 UNIT TAB PO SCH (09:42)
[2020-06-09] MEDS: FLUCONAZOLE 100 MG TAB PO SCH (09:42)
[2020-06-09] MEDS: SCOPOLAMINE HYDROBROMIDE PATCH TD SCH (09:45)
[2020-06-09] MEDS: ZIPRASIDONE MESYLA 20 MG/VIAL IM SCH ×2 (10:48→23:00)
[2020-06-09] MEDS: WATER FOR INJ,STERILE 10 ML IM PRN (10:48)
--- NOTE | 2020-06-09 12:51 | P.PN ---
Subjective Date of Service: 06/09/20 Primary Care Provider: BARBARA mccarty Chief Complaint: Respiratory failure Subjective: Other (with some secretions this morning, restless / agitated.) Review of Systems is unable to be obtained Physical Examination - Vital Signs Temperature: 99.5 F Blood Pressure: 142/90 Pulse: 108 Respirations: 27 Pulse Ox (%): 96 - Studies Medications List Reviewed: Yes Assessment & Plan Physician Review Additional Text: Physical Exam: Gen: rsstless Neuro: opens eyes, squeezes hand on command HEENT: sclera anicteric, +secretions CV: sinus tachycardia 90s-115 - up to 130s when agitated temporarily Pulm: on mechanical ventilation, tachypneic Abd: soft, non-distended Ext: no edema, no rash, does not appear to have tenderness Problem List: acute respiratory failure secondary to Bilateral COVID-19 pneumonia with hypoxia leukocytosis Hematuria Diabetes mellitus type 2, nic-nuxoxgc-cxnvjifmf with hyperglycemia Obesity, BMI 33 Plan acute respiratory failure secondary to Bilateral COVID-19 pneumonia with hypoxia Leukocytosis s/p Remdesivir and conv plasama, labile leukocytosis over the past 1-2 weeks, Procal negative. Sputum culture: GPC. on Diflucan per pulm with more secretiosn today, more agitated, will switch from rocephin to meropenem intubated 05/24, trach on 06/05 ferritin/CRP labile as well continues with difficult balance between sedation and blood pressure due to patient's agitation/anxiety once more awake/alert Hematuria -recurrent hematuria, likely from trauma with patient agitated and may have kicked laguna tubing -failed voiding trials night of 06/07, laguna replaced -risk for blood clot is very high given severe covid infection, discussed with pulm and will continue eliquis for now -continues with lightly tinged urine Hypertension difficult balance between sedation / oxygenation and BP Diabetes mellitus type 2 mvw-awvkqnl-zdvrugthm with hyperglycemia: On tube feeding. SSI. well controlled, continue 20u BID Dispo: on ventilator, s/p trach, wean O2. appropriate for LTACH insurance denied appeal for LTACH. SW/CM considering other options Time Spent Managing Pts Care (In Minutes): 35
[2020-06-09] MEDS ORDERED: MIDAZOLAM HCL 100 MG in NA CHLORIDE 0.9% 80 ML IV PRN (15:43)
[2020-06-09] MEDS: Meropenem 1,000 MG in NA CHLORIDE 0.9% 100 ML IV SCH (16:07)
--- NOTE | 2020-06-09 16:35 | P.PN ---
Subjective Date of Service: 06/09/20 Primary Care Provider: BARBARA mccarty Chief Complaint: Respiratory failure Patient continues to remain very agitated requiring a lot of sedation paralytic agents at times and patient is sedated his oxygen requirements have declined Review of Systems is unable to be obtained Physical Examination - Vital Signs Temperature: 99.5 F Blood Pressure: 81/63 Pulse: 60 Respirations: 30 Pulse Ox (%): 98 - Physical Exam General: Unresponsive Cardiovascular: Normal S1 S2, Edema Gastrointestinal: Normal bowel sounds, Soft and benign - Studies Medications List Reviewed: Yes Assessment & Plan - Problems (Diagnosis) (1) 2019 novel coronavirus detected Current Visit: Yes Status: Acute Plan: Respiratory failure severe agitation oxygenation has improved no progression on his x-rays will Dc the fentanyl patch otherwise no change in present medication patient's bowel sounds are very labile
[2020-06-09] MEDS ORDERED: Meropenem 1000 MG/VIAL IV SCH (17:00)
[2020-06-09] MEDS: propofoL 1,000 MG/100 ML VIAL IV PRN (20:11)
[2020-06-09] MEDS: VITAL HP 1,000 ML BOT RTH SCH (21:54)
[2020-06-10] MEDS: Meropenem 1,000 MG in NA CHLORIDE 0.9% 100 ML IV SCH ×3 (00:31→16:41)
[2020-06-10] MEDS: propofoL 1,000 MG/100 ML VIAL IV PRN ×3 (04:11→22:26)
[2020-06-10] MEDS: MIDAZOLAM HCL 2 MG/2 ML INJ IV PRN ×2 (05:10→15:43)
[2020-06-10] MEDS: HYDROMORPHONE HCL 2 MG/ML inj IV PRN ×2 (05:10→15:44)
[2020-06-10 05:11] LABS: Hematocrit 37.3 % (39.6-49.0); RBC Red Blood Cell Count 4.24 M/uL (4.33-5.43)
[2020-06-10 05:28] LABS: BUN Blood Urea Nitrogen 29 mg/dL (7-18); Bicarbonate 32 mmol/L (21-32); Ferritin 1609.7 ng/mL (26-388); Glucose Level 278 mg/dL (74-106); Magnesium 2.3 mg/dL (1.8-2.4); Sodium Level 139 mmol/L (136-145)
[2020-06-10] MEDS: INSULIN -REGULAR HUMAN 50 UNIT/0.5 ML ML SQ SCH ×4 (05:59→16:40)
--- NOTE | 2020-06-10 06:46 | RAD REPORT ---
EXAM DESCRIPTION: RAD - Chest Single View - 06/10/2020 5:38 am CLINICAL HISTORY: covid pneumonia COMPARISON: June 08, June 06 TECHNIQUE: AP portable chest image was obtained 06/10/2020 5:38 am . FINDINGS: Bilateral interstitial and alveolar infiltrates are again noted. Adjusting for position an d technique differences, exam is not substantially different. No measurable improvement or progressio n evident. Enteric tube and trach tube are stable. No change to the PICC line. Heart and vasculature are normal. No measurable pleural effusion and no pneumothorax. No acute bony abnormality seen. No acute aortic findings suspected. IMPRESSION: Stable chest.
[2020-06-10] MEDS: FLUCONAZOLE 100 MG TAB PO SCH (09:33)
[2020-06-10] MEDS: APIXABAN 5 MG TABLET PO SCH ×2 (09:33→21:23)
[2020-06-10] MEDS: METHYLPREDNISOLONE 40 MG INJ IV SCH ×2 (09:33→21:22)
[2020-06-10] MEDS: VITAMIN D 1000 UNIT TAB PO SCH (09:34)
[2020-06-10] MEDS: FAMOTIDINE 20 MG TAB PO SCH ×2 (09:34→21:23)
[2020-06-10] MEDS: FENTANYL CITR 100 MCG/2 ML IV PRN ×3 (09:55→21:22)
[2020-06-10] MEDS: INSULIN GLARGINE 100 UNITS/ML SQ SCH ×2 (09:56→21:22)
[2020-06-10] MEDS ORDERED: MIDAZOLAM HCL 100 ML IV PRN (10:08)
[2020-06-10] MEDS: LORazepam 2 MG/ML VIAL IV PRN ×2 (10:51→15:06)
[2020-06-10] MEDS: ZIPRASIDONE MESYLA 20 MG/VIAL IM SCH ×2 (11:05→23:05)
[2020-06-10] MEDS: WATER FOR INJ,STERILE 10 ML IM PRN ×2 (11:05→23:05)
--- NOTE | 2020-06-10 12:00 | P.PN ---
Subjective Date of Service: 06/10/20 Primary Care Provider: BARBARA mccarty Chief Complaint: Respiratory failure No major changes from yesterday. Patient intubated. Agitated. Now sedated with propofol drip. Blood pressure is soft. Leukocytosis has improved. Leukocytosis fluctuates. Blood pressure and heart rate also fluctuate. Physical Examination - Vital Signs Temperature: 98.7 F Blood Pressure: 100/71 Pulse: 57 Respirations: 27 Pulse Ox (%): 95 - Physical Exam General: Other (Sedated) Neck: Other (Tracheostomy.) Cardiovascular: No edema, Regular rate/rhythm Gastrointestinal: Soft and benign, Non-distended Musculoskeletal: No swelling Integumentary: No rashes Neurological: Other (Sedated) - Studies Medications List Reviewed: Yes Assessment And Plan - Current Problems (Diagnosis) (1) Pneumonia due to COVID-19 virus Current Visit: Yes Status: Acute (2) Acute respiratory failure with hypoxia Current Visit: Yes Status: Acute (3) Leukocytosis Current Visit: Yes Status: Acute Physician Review Additional Text: Problem List: acute respiratory failure secondary to Bilateral COVID-19 pneumonia with hypoxia leukocytosis Hematuria Diabetes mellitus type 2, wpi-egpfodo-widepntqe with hyperglycemia Obesity, BMI 33 Plan acute respiratory failure secondary to Bilateral COVID-19 pneumonia with hypoxia Leukocytosis s/p Remdesivir and conv plasama, labile leukocytosis over the past 1-2 weeks, Procal negative. Sputum culture: GPC. on Diflucan per pulm Continue current antibiotics. intubated 05/24, trach on 06/05 ferritin/CRP labile as well continues with difficult balance between sedation and blood pressure due to patient's agitation/anxiety once more awake/alert Hematuria -recurrent hematuria. -failed voiding trials night of 06/07, laguna replaced -risk for blood clot is very high given severe covid infection, discussed with pulm -Continue Eliquis. -monitor for active bleeding. Hypertension -labile, ranging from hypotension to hypertension. -monitor -midodrine PRN -metoprolol p.r.n. Diabetes mellitus type 2 dhz-knbmbyt-ugquuvpfi with hyperglycemia: On tube feeding. SSI. well controlled, continue 20u BID Dispo: on ventilator, s/p trach, wean O2. appropriate for LTACH insurance denied appeal for LTACH. SW/CM considering other options
--- NOTE | 2020-06-10 12:00 | P.PN ---
Subjective Date of Service: 06/10/20 Primary Care Provider: BARBARA mccarty Chief Complaint: Respiratory failure Patient continues to be very agitated intermittently hypoxic requiring sedation and propofol Review of Systems is unable to be obtained Physical Examination - Vital Signs Temperature: 98.7 F Blood Pressure: 100/71 Pulse: 57 Respirations: 27 Pulse Ox (%): 95 - Studies Medications List Reviewed: Yes Assessment & Plan - Problems (Diagnosis) (1) 2019 novel coronavirus detected Current Visit: Yes Status: Acute Plan: Respiratory failure extreme agitation fentanyl has been stopped ferritin is declining chest x-ray no progression will await sputum cultures if negative Dc meropenem labs reviewed f S copious secretions he is on scopolamine patch white count declining stable to go to an LTAC facility
[2020-06-10] MEDS ORDERED: MIDAZOLAM HCL 100 MG in NA CHLORIDE 0.9% 80 ML IV PRN (17:01)
[2020-06-10] MEDS: VITAL HP 1,000 ML BOT RTH SCH (21:24)
[2020-06-11] MEDS: Meropenem 1,000 MG in NA CHLORIDE 0.9% 100 ML IV SCH ×2 (00:13→08:41)
[2020-06-11] MEDS: INSULIN -REGULAR HUMAN 50 UNIT/0.5 ML ML SQ SCH ×4 (00:13→17:30)
[2020-06-11 05:06] LABS: Absolute Lymphocytes (CBC) 0.4 K/uL (0.7-4.9); Basophils % 0.3 % (0-1.3); Lymphocytes % 4.1 % (15.3-44.8); RBC Red Blood Cell Count 3.53 M/uL (4.33-5.43)
[2020-06-11 05:24] LABS: BUN Blood Urea Nitrogen 27 mg/dL (7-18); Bicarbonate 33 mmol/L (21-32); C-Reactive Protein 5.67 mg/L (<3.00); Ferritin 1338.9 ng/mL (26-388); Glucose Level 254 mg/dL (74-106); Magnesium 2.3 mg/dL (1.8-2.4); Potassium 3.7 mmol/L (3.5-5.1); Sodium Level 141 mmol/L (136-145)
--- NOTE | 2020-06-11 06:45 | RAD REPORT ---
EXAM DESCRIPTION: RAD - Chest Single View - 06/11/2020 6:07 am CLINICAL HISTORY: covid pneumonia COMPARISON: June 10, June 08, June 06 TECHNIQUE: AP portable chest image was obtained 06/11/2020 6:07 am . FINDINGS: Bilateral interstitial and alveolar opacification, worse on the left, is again noted. Ther e is been slight improvement since the prior day imaging. Feeding tube, trach tube and PICC line are unchanged. Heart and vasculature are normal. No measurable pleural effusion and no pneumothorax. No acute bony a bnormality seen. No acute aortic findings suspected. IMPRESSION: Slight improvement in the lung parenchymal infiltrates has occurred since the June 10 examination.
[2020-06-11] MEDS: propofoL 1,000 MG/100 ML VIAL IV PRN ×2 (07:01→13:39)
[2020-06-11] MEDS: FENTANYL CITR 100 MCG/2 ML IV PRN ×2 (07:22→22:06)
[2020-06-11] MEDS: LORazepam 2 MG/ML VIAL IV PRN ×2 (08:38→22:03)
[2020-06-11] MEDS: MIDAZOLAM HCL 2 MG/2 ML INJ IV PRN (08:38)
[2020-06-11] MEDS: VITAMIN D 1000 UNIT TAB PO SCH (08:39)
[2020-06-11] MEDS: INSULIN GLARGINE 100 UNITS/ML SQ SCH ×2 (08:40→19:58)
[2020-06-11] MEDS: APIXABAN 5 MG TABLET PO SCH (08:40)
[2020-06-11] MEDS: FAMOTIDINE 20 MG TAB PO SCH ×2 (08:41→19:58)
[2020-06-11] MEDS: METHYLPREDNISOLONE 40 MG INJ IV SCH ×2 (08:41→19:57)
[2020-06-11] MEDS: HYDROMORPHONE HCL 2 MG/ML inj IV PRN ×3 (11:22→23:42)
[2020-06-11] MEDS: WATER FOR INJ,STERILE 10 ML IM PRN ×2 (11:24→19:57)
[2020-06-11] MEDS: ZIPRASIDONE MESYLA 20 MG/VIAL IM SCH ×2 (11:24→19:57)
[2020-06-11 11:42] LABS: Arterial Blood Carboxyhemoglob 1.7 % (0-1.5); Blood Gas Oxyhemoglobin 90.9 % (94-97); Blood O2 Saturation 93.2 % (92-98.5)
--- NOTE | 2020-06-11 12:19 | P.PN ---
Subjective Date of Service: 06/11/20 Primary Care Provider: BARBARA mccarty Chief Complaint: Respiratory failure No change in patient's condition he continues to remain agitated apparently he is on Versed said and propofol drip Review of Systems is unable to be obtained Physical Examination - Vital Signs Temperature: 98 F Blood Pressure: 124/92 Pulse: 74 Respirations: 25 Pulse Ox (%): 95 - Physical Exam General: Unresponsive Respiratory: Clear to auscultation bilaterally, Diminished Cardiovascular: No edema - Studies Medications List Reviewed: Yes Assessment & Plan - Problems (Diagnosis) (1) 2019 novel coronavirus detected Current Visit: Yes Status: Acute Plan: Respiratory failure continues to remain agitated stay requiring significant amount of oxygen blood gases reviewed labs reviewed chest x-ray shows a slight improvement use either propofol over sat drip vital signs reviewed Dc meropenem no evidence of sepsis ferritin levels are declined
--- NOTE | 2020-06-11 12:50 | P.PN ---
Subjective Date of Service: 06/11/20 Primary Care Provider: BARBARA mccarty Chief Complaint: Respiratory failure No major changes from yesterday. Occasionally agitated. Blood pressure is soft. Leukocytosis resolved. Blood pressure and heart rate fluctuate. Physical Examination - Vital Signs Temperature: 96.5 F Blood Pressure: 97/75 Pulse: 64 Respirations: 30 Pulse Ox (%): 93 - Physical Exam General: In no apparent distress, Other (Sedated) Neck: Other (Tracheostomy) Cardiovascular: No edema, Regular rate/rhythm, Normal S1 S2 Gastrointestinal: Soft and benign, Non-distended Musculoskeletal: No swelling, No tenderness Integumentary: No rashes Neurological: Other (Sedated) - Studies Medications List Reviewed: Yes Assessment And Plan - Current Problems (Diagnosis) (1) Pneumonia due to COVID-19 virus Current Visit: Yes Status: Acute (2) Acute respiratory failure with hypoxia Current Visit: Yes Status: Acute (3) Leukocytosis Current Visit: Yes Status: Acute Physician Review Additional Text: Problem List: acute respiratory failure secondary to Bilateral COVID-19 pneumonia with hypoxia leukocytosis Hematuria Diabetes mellitus type 2, pjq-thhofnw-ublbpzvgn with hyperglycemia Obesity, BMI 33 Plan acute respiratory failure secondary to Bilateral COVID-19 pneumonia with hypoxia Leukocytosis s/p Remdesivir and conv plasama, labile leukocytosis over the past 1-2 weeks, Procal negative. Sputum culture: GPC. on Diflucan per pulm Continue current antibiotics. intubated 05/24, trach on 06/05 Completing steroid treatment. Continue to monitor and wean oxygen as tolerated. Hematuria -recurrent hematuria. -failed voiding trials night of 06/07, laguna replaced -risk for blood clot is very high given severe covid infection, discussed with pulm -Continue Eliquis. -no bloody urine as of now. -monitor for active bleeding. Hypertension -labile, ranging from hypotension to hypertension. -monitor -midodrine PRN -metoprolol p.r.n. Diabetes mellitus type 2 [id number]-[id number] with hyperglycemia: On tube feeding. SSI. well controlled, continue 20u BID Dispo: on ventilator, s/p trach, wean O2. appropriate for LTACH insurance denied appeal for LTACH.
[2020-06-11] MEDS ORDERED: BISACODYL 10 MG RECTAL SUPP PR PRN (17:47)
[2020-06-11] MEDS: POLYETHYL GLY 3350 17 GM/DOSE PO SCH (19:58)
[2020-06-12] MEDS: INSULIN -REGULAR HUMAN 50 UNIT/0.5 ML ML SQ SCH ×5 (00:31→23:23)
[2020-06-12] MEDS: propofoL 1,000 MG/100 ML VIAL IV PRN ×4 (01:47→17:53)
[2020-06-12] MEDS: HYDROMORPHONE HCL 2 MG/ML inj IV PRN ×5 (03:16→20:45)
[2020-06-12] MEDS: MIDAZOLAM HCL 2 MG/2 ML INJ IV PRN (04:35)
[2020-06-12 05:42] LABS: Absolute Lymphocytes (CBC) 0.4 K/uL (0.7-4.9); Hematocrit 34.3 % (39.6-49.0); Lymphocytes % 3.7 % (15.3-44.8); MPV 9.2 fL (7.6-11.3); RBC Red Blood Cell Count 3.83 M/uL (4.33-5.43)
[2020-06-12] MEDS: FENTANYL CITR 100 MCG/2 ML IV PRN ×2 (05:45→22:45)
[2020-06-12] MEDS: LORazepam 2 MG/ML VIAL IV PRN ×4 (05:45→22:45)
[2020-06-12 06:02] LABS: BUN Blood Urea Nitrogen 25 mg/dL (7-18); Bicarbonate 30 mmol/L (21-32); C-Reactive Protein 8.96 mg/L (<3.00); Ferritin 1460.4 ng/mL (26-388); Glucose Level 185 mg/dL (74-106); Magnesium 2.2 mg/dL (1.8-2.4); Potassium 3.5 mmol/L (3.5-5.1); Sodium Level 142 mmol/L (136-145)
[2020-06-12 06:50] LABS: Blood Morphology Comment NOT SEEN (NOT SEEN); Platelet Estimate ADEQ; White Blood Cell Scan OK (OK)
--- NOTE | 2020-06-12 07:10 | RAD REPORT ---
EXAM DESCRIPTION: Yoselin Single View06/12/2020 6:35 am CLINICAL HISTORY: Shortness of breath COMPARISON: June 11, 2020 FINDINGS: No significant change in the bilateral pulmonary opacities. Heart is normal size Tracheostomy tube in place . PICC line present
[2020-06-12] MEDS: FAMOTIDINE 20 MG TAB PO SCH ×2 (07:57→20:10)
[2020-06-12] MEDS: VITAMIN D 1000 UNIT TAB PO SCH (07:57)
[2020-06-12] MEDS: POLYETHYL GLY 3350 17 GM/DOSE PO SCH ×2 (07:57→20:10)
[2020-06-12] MEDS: INSULIN GLARGINE 100 UNITS/ML SQ SCH ×2 (07:57→20:10)
[2020-06-12] MEDS: METHYLPREDNISOLONE 40 MG INJ IV SCH ×2 (07:58→20:10)
[2020-06-12] MEDS: WATER FOR INJ,STERILE 10 ML IM PRN ×2 (08:00→20:22)
[2020-06-12] MEDS ORDERED: POTASSIUM 25 MEQ EFFERV TAB PO ONE (08:00)
[2020-06-12] MEDS: ZIPRASIDONE MESYLA 20 MG/VIAL IM SCH ×2 (08:00→20:23)
[2020-06-12] MEDS: SCOPOLAMINE HYDROBROMIDE PATCH TD SCH (09:23)
[2020-06-12] MEDS: APIXABAN 5 MG TABLET PO SCH ×2 (11:06→20:10)
--- NOTE | 2020-06-12 12:02 | P.PN ---
Subjective Date of Service: 06/12/20 Primary Care Provider: [facility] Chief Complaint: Respiratory failure Patient appear more comfortable today He had blood tinged urine. Eliquis was healed last night. Blood pressure is soft. Leukocytosis resolved. Blood pressure and heart rate fluctuate. Physical Examination - Vital Signs Temperature: 97.8 F Blood Pressure: 137/102 Pulse: 89 Respirations: 30 Pulse Ox (%): 92 - Physical Exam General: Other (Sedated) HEENT: Other Neck: Other (Tracheostomy) Cardiovascular: Regular rate/rhythm Gastrointestinal: Soft and benign, Non-distended Musculoskeletal: No swelling Integumentary: No rashes Neurological: Normal strength at 5/5 x4 extr - Studies Medications List Reviewed: Yes Assessment And Plan - Current Problems (Diagnosis) (1) Pneumonia due to COVID-19 virus Current Visit: Yes Status: Acute (2) Acute respiratory failure with hypoxia Current Visit: Yes Status: Acute (3) Leukocytosis Current Visit: Yes Status: Acute Physician Review Additional Text: Problem List: acute respiratory failure secondary to Bilateral COVID-19 pneumonia with hypoxia leukocytosis Hematuria Diabetes mellitus type 2, zjt-avbqycy-tlnsatnnh with hyperglycemia Obesity, BMI 33 Plan acute respiratory failure secondary to Bilateral COVID-19 pneumonia with hypoxia Leukocytosis s/p Remdesivir and conv plasama, Leukocytosis resolved, Procal negative. Sputum culture: GPC. on Diflucan per pulm Patient completed antibiotics. intubated 05/24, trach on 06/05 Completed steroid treatment. Continue to monitor and wean oxygen as tolerated. Hematuria -recurrent hematuria. -failed voiding trials night of 06/07, laguna replaced -risk for blood clot is very high given severe covid infection, discussed with pulm -Eliquis filled last night. Urine looks a bit dark but not blood tinged. -Eliquis resumed today -monitor for active bleeding. Hypertension -labile, ranging from hypotension to hypertension. -monitor -midodrine PRN -metoprolol p.r.n. Diabetes mellitus type 2 mdh-sezznhd-uezxdtlfo with hyperglycemia: On tube feeding. SSI. continue Lantus 20u BID Dispo: on ventilator, s/p trach, wean O2.
--- NOTE | 2020-06-12 13:24 | P.PN ---
Subjective Date of Service: 06/12/20 Primary Care Provider: BARBARA mccarty Chief Complaint: Respiratory failure Patient is clinically improving although he does get very agitated responding well to Dilaudid oxygen requirements have declined Review of Systems is unable to be obtained Physical Examination - Vital Signs Temperature: 97.8 F Blood Pressure: 89/57 Pulse: 64 Respirations: 30 Pulse Ox (%): 94 - Studies Medications List Reviewed: Yes Assessment & Plan - Problems (Diagnosis) (1) 2019 novel coronavirus detected Current Visit: Yes Status: Acute Plan: Respiratory failure cleared patient is slowly improving oxygen requirements declining patient responds well to Dilaudid no change in present medications continue with present dose of Solu-Medrol hopefully once is below 50% FiO2 may be able to try him on trach collar at side physical therapy
[2020-06-12] MEDS: VITAL HP 1,000 ML BOT RTH SCH (23:22)
[2020-06-13] MEDS: HYDROMORPHONE HCL 2 MG/ML inj IV PRN ×6 (02:27→21:00)
[2020-06-13] MEDS: FENTANYL CITR 100 MCG/2 ML IV PRN ×4 (03:21→17:03)
[2020-06-13] MEDS: LORazepam 2 MG/ML VIAL IV PRN ×3 (03:21→23:20)
[2020-06-13] MEDS: INSULIN -REGULAR HUMAN 50 UNIT/0.5 ML ML SQ SCH ×3 (05:20→18:00)
[2020-06-13 05:40] LABS: Arterial Blood Carboxyhemoglob 1.8 % (0-1.5); Blood Gas Oxyhemoglobin 92.5 % (94-97); Blood O2 Saturation 95.2 % (92-98.5)
[2020-06-13] MEDS: propofoL 1,000 MG/100 ML VIAL IV PRN ×3 (06:20→22:43)
[2020-06-13] MEDS: ZIPRASIDONE MESYLA 20 MG/VIAL IM SCH ×2 (07:00→19:53)
[2020-06-13 07:06] LABS: BUN Blood Urea Nitrogen 26 mg/dL (7-18); Bicarbonate 30 mmol/L (21-32); Ferritin 1560.3 ng/mL (26-388); Glucose Level 209 mg/dL (74-106); Potassium 3.3 mmol/L (3.5-5.1); Sodium Level 141 mmol/L (136-145)
--- NOTE | 2020-06-13 07:18 | RAD REPORT ---
EXAM DESCRIPTION: Yoselin Single View06/13/2020 6:41 am CLINICAL HISTORY: Shortness of breath COMPARISON: June 12, 2020 FINDINGS: Mild improvement in the bilateral pulmonary opacities Heart is normal size. Lines and tubes in good position
[2020-06-13] MEDS ORDERED: POTASSIUM 25 MEQ EFFERV TAB PO ONE (08:00)
[2020-06-13] MEDS ORDERED: POTASSIUM 25 MEQ EFFERV TAB FT ONE (08:00)
[2020-06-13] MEDS: INSULIN GLARGINE 100 UNITS/ML SQ SCH ×2 (09:00→20:21)
[2020-06-13] MEDS: APIXABAN 5 MG TABLET PO SCH ×2 (09:00→19:36)
[2020-06-13] MEDS: VITAMIN D 1000 UNIT TAB PO SCH (09:00)
[2020-06-13] MEDS: FAMOTIDINE 20 MG TAB PO SCH ×2 (09:00→19:36)
[2020-06-13] MEDS: POLYETHYL GLY 3350 17 GM/DOSE PO SCH ×2 (09:00→19:36)
[2020-06-13] MEDS: MIDAZOLAM HCL 2 MG/2 ML INJ IV PRN ×3 (10:23→20:57)
--- NOTE | 2020-06-13 11:11 | P.DS ---
Admission Date: 05/07/20 Discharge Date: 06/13/20 Primary Care Provider: BARBARA mccarty Dis[facility] Discharge Condition: FAIR Reason for Admission: Respiratory failure - Problems (1) Pneumonia due to COVID-19 virus Current Visit: Yes Status: Acute (2) Acute respiratory failure with hypoxia Current Visit: Yes Status: Acute (3) Leukocytosis Current Visit: Yes Status: Acute (4) Diabetes mellitus type 2 in nonobese Current Visit: Yes Status: Acute Brief History of Present Illness: 54-year-old male with a history of diabetes mellitus type 2 presented to the emergency department with a complaint of shortness of breath. Patient tested positive for COVID on April 28, 2020. His oxygen saturation at home was measured to be 82%. Patient was tolerating 2-3 L of oxygen by nasal cannula. His chest x-ray demonstrated bilateral ground glass opacities. Patient was admitted for further management. Hospital Course: acute respiratory failure secondary to Bilateral COVID-19 pneumonia with hypoxia Leukocytosis Patient is s/p Remdesivir and conalescent plasama. He had severe leukocytosis which resolved, Procalcitonin negative. Sputum culture: GPC. Patient treated with Diflucan and antibiotics for secondary infections Patient completed antibiotics. intubated 05/24, trachestomy on 06/05 Completed steroid treatment. Intermittently agitated required intermittent propofol, IV fentanyl, and IV midazolam for sedation. He is also treated with IV hydromorphone for pain. Hematuria -intermittent hematuria. -failed voiding trials night of 06/07, laguna replaced -risk for blood thromboembolism considered to be very high given severe covid infection. -patient treated with Eliquis for thromboembolism prophylaxis -monitor for active bleeding. Hypertension -labile, ranging from hypotension to hypertension. -midodrine PRN -metoprolol p.r.n. Diabetes mellitus type 2 vfd-qztxvur-pqxqwmjej with hyperglycemia: On tube feeding. Blood glucose managed with SSI and Lantus 20u BID. Patient stable on tracheostomy. He has been accepted to LTAC to continue treatment. Stable enough for transfer. Vital Signs/Physical Exam: Temp Pulse Resp BP Pulse Ox 97.1 F 60 26 H 76/57 L 88 L 06/13/20 04:00 06/13/20 09:00 06/13/20 10:08 06/13/20 09:00 06/13/20 10:08 General: Other (Sedated) Neck: Other (Tracheostomy) Respiratory: Other (Upper airway transmitted sounds) Cardiovascular: No edema, Regular rate/rhythm Gastrointestinal: Soft and benign, Non-distended Musculoskeletal: No swelling Neurological: Other (Nonfocal) Laboratory Data at Discharge: WBC 10.50 K/uL (4.3-10.9) 06/12/20 05:10 Hgb 11.6 g/dL (13.6-17.9) L 06/12/20 05:10 Hct 34.3 % (39.6-49.0) L 06/12/20 05:10 Plt Count 195 K/uL (152-406) 06/12/20 05:10 PT 11.9 SECONDS (9.5-12.5) 05/06/20 22:00 INR 1.01 05/06/20 22:00 APTT 26.1 SECONDS (24.3-36.9) 05/06/20 22:00 Sodium 141 mmol/L (136-145) 06/13/20 05:15 Potassium 3.3 mmol/L (3.5-5.1) L 06/13/20 05:15 BUN 26 mg/dL (7-18) H 06/13/20 05:15 Creatinine 0.47 mg/dL (0.55-1.3) L 06/13/20 05:15 Glucose 209 mg/dL (74-106) H 06/13/20 05:15 Phosphorus 4.0 mg/dL (2.5-4.9) 06/13/20 05:15 Magnesium 2.0 mg/dL (1.8-2.4) 06/13/20 05:15 Total Bilirubin 0.7 mg/dL (0.2-1.0) 06/05/20 04:18 AST 25 U/L (15-37) 06/05/20 04:18 ALT 86 U/L (12-78) H 06/05/20 04:18 Alkaline Phosphatase 106 U/L (45-117) 06/05/20 04:18 Troponin I < 0.02 ng/mL (0.0-0.045) 05/11/20 20:29 Lipase 127 U/L (73-393) 05/06/20 22:00 Home Medications: Apixaban [Eliquis] 5 mg PO BID tablet 06/13/20 Bisacodyl [Dulcolax*] 10 mg [place] DAILY PRN supp 06/13/20 Cholecalciferol (Vitamin D3) [Vitamin D 1000 Iu Tab*] 4,000 unit PO DAILY tab 06/13/20 Famotidine [Pepcid*] 20 mg PO BID tab 06/13/20 Hydromorphone [Dilaudid*] 2 mg IV Q2H PRN vial 06/13/20 Insulin -Regular Human [Novolin -R*] See Protocol SQ Q6H ml 06/13/20 Insulin Glargine Human [Lantus*] 20 units SQ BID ml 06/13/20 Jevity 1.2 Kyle Liquid 10 ml FT CONT bot 06/13/20 LORazepam [Ativan*] 4 mg IV Q2HP PRN vial 06/13/20 Metoprolol Tartrate [Lopressor 1 MG/Ml Inj*] 5 mg IV Q6H PRN vial 06/13/20 Midazolam HCl [Versed*] 2 mg IV Q2HP PRN vial 06/13/20 Polyethyl Gly 3350 [Glycolax*] 17 gm PO BID udbot 06/13/20 Scopolamine Hydrobromide [Transderm-Scop*] 1 pat TD Q3D@0900 patch 06/13/20 Diet: Tube feed. Followup: NONE,NONE [Primary Care Provider] - Time spent managing pt's care (in minutes): 42
[2020-06-13] MEDS ORDERED: GLUCAGON 1 MG/VIAL IM PRN (13:10)
[2020-06-13] MEDS: WATER FOR INJ,STERILE 10 ML IM PRN (19:53)
[2020-06-14] MEDS: FENTANYL CITR 100 MCG/2 ML IV PRN ×4 (02:00→23:37)
[2020-06-14] MEDS: LORazepam 2 MG/ML VIAL IV PRN ×6 (04:35→23:37)
[2020-06-14] MEDS: HYDROMORPHONE HCL 2 MG/ML inj IV PRN ×5 (04:38→22:02)
[2020-06-14] MEDS: INSULIN -REGULAR HUMAN 50 UNIT/0.5 ML ML SQ SCH ×5 (06:00→23:48)
[2020-06-14] MEDS: propofoL 1,000 MG/100 ML VIAL IV PRN (07:09)
[2020-06-14] MEDS: APIXABAN 5 MG TABLET PO SCH ×2 (07:21→19:42)
[2020-06-14] MEDS: VITAMIN D 1000 UNIT TAB PO SCH (07:21)
[2020-06-14] MEDS: FAMOTIDINE 20 MG TAB PO SCH ×2 (07:21→19:42)
[2020-06-14] MEDS: ZIPRASIDONE MESYLA 20 MG/VIAL IM SCH ×2 (07:21→18:17)
[2020-06-14] MEDS: WATER FOR INJ,STERILE 10 ML IM PRN ×2 (07:22→18:18)
[2020-06-14] MEDS: INSULIN GLARGINE 100 UNITS/ML SQ SCH ×2 (08:22→20:06)
[2020-06-14] MEDS: MIDAZOLAM HCL 2 MG/2 ML INJ IV PRN ×4 (09:39→22:02)
[2020-06-14] MEDS: CISATRACURIUM INJECTION 2 MG/ML (10 ML Vial) IV PRN ×2 (14:21→20:00)
--- NOTE | 2020-06-14 18:30 | P.PN ---
Subjective Date of Service: 06/13/20 Primary Care Provider: ASHWOOD bibiana Chief Complaint: Respiratory failure Patient could not be transferred for LTAC and waiting bed availability Blood pressure is soft. Leukocytosis resolved. Physical Examination - Vital Signs Temperature: 97.7 F Blood Pressure: 129/88 Pulse: 119 Respirations: 35 Pulse Ox (%): 98 - Physical Exam General: Other (Sedated) Neck: Other (Tracheostomy) Respiratory: Other (Upper airway transmitted sounds) Cardiovascular: Regular rate/rhythm, Normal S1 S2 Gastrointestinal: Soft and benign, Non-distended, No tenderness Musculoskeletal: No swelling Integumentary: No rashes Neurological: Other (Sedated) - Studies Medications List Reviewed: Yes Assessment And Plan - Current Problems (Diagnosis) (1) Pneumonia due to COVID-19 virus Current Visit: Yes Status: Acute (2) Acute respiratory failure with hypoxia Current Visit: Yes Status: Acute (3) Leukocytosis Current Visit: Yes Status: Acute (4) Diabetes mellitus type 2 in nonobese Current Visit: Yes Status: Acute Physician Review Additional Text: Problem List: acute respiratory failure secondary to Bilateral COVID-19 pneumonia with hypoxia leukocytosis Hematuria Diabetes mellitus type 2, xnl-ahrmwjx-hptinzftw with hyperglycemia Obesity, BMI 33 Plan acute respiratory failure secondary to Bilateral COVID-19 pneumonia with hypoxia Leukocytosis s/p Remdesivir and conv plasama, Leukocytosis resolved, Procal negative. Sputum culture: GPC. on Diflucan per pulm Patient completed antibiotics. intubated 05/24, trach on 06/05 Completed steroid treatment. Continue to monitor and wean oxygen as tolerated. Patient accepted for transfer to LTAC pending bed availability Hematuria -recurrent hematuria. -failed voiding trials night of 06/07, laguna replaced -risk for blood clot is very high given severe covid infection, discussed with pulm -continue Eliquis. -monitor for active bleeding. Hypertension -labile, ranging from hypotension to hypertension. -monitor -midodrine PRN -metoprolol p.r.n. Diabetes mellitus type 2 apx-rxxnvki-keajgqcqg with hyperglycemia: On tube feeding. SSI. continue Lantus 20u BID Dispo: on ventilator, s/p trach, wean O2.
--- NOTE | 2020-06-14 18:31 | P.PN ---
Subjective Date of Service: 06/14/20 Primary Care Provider: [facility] Chief Complaint: Respiratory failure No major changes from yesterday. Patient could not be transferred for LTAC and waiting bed availability Physical Examination - Vital Signs Temperature: 97.7 F Blood Pressure: 129/88 Pulse: 119 Respirations: 35 Pulse Ox (%): 98 - Physical Exam General: Other (Sedated) Respiratory: Other (Upper airway transmitted sounds) Cardiovascular: No edema, Regular rate/rhythm, Normal S1 S2 Gastrointestinal: Soft and benign, Non-distended Musculoskeletal: No swelling Integumentary: No rashes Neurological: Other (Sedated, moves all extremities spontaneously.) - Studies Medications List Reviewed: Yes Assessment And Plan - Current Problems (Diagnosis) (1) Pneumonia due to COVID-19 virus Current Visit: Yes Status: Acute (2) Acute respiratory failure with hypoxia Current Visit: Yes Status: Acute (3) Leukocytosis Current Visit: Yes Status: Acute (4) Diabetes mellitus type 2 in nonobese Current Visit: Yes Status: Acute Physician Review Additional Text: Problem List: acute respiratory failure secondary to Bilateral COVID-19 pneumonia with hypoxia leukocytosis Hematuria Diabetes mellitus type 2, cps-pwsdbks-efxdhzdjt with hyperglycemia Obesity, BMI 33 Plan acute respiratory failure secondary to Bilateral COVID-19 pneumonia with hypoxia Leukocytosis s/p Remdesivir and conv plasama, Leukocytosis resolved, Procal negative. Sputum culture: GPC. on Diflucan per pulm Patient completed antibiotics. intubated 05/24, trach on 06/05 Completed steroid treatment. Continue to monitor and wean oxygen as tolerated. Patient accepted for transfer to LTAC pending bed availability Hematuria -recurrent hematuria. -failed voiding trials night of 06/07, laguna replaced -risk for blood clot is very high given severe covid infection, discussed with pulm -continue Eliquis. -monitor for active bleeding. Hypertension -labile, ranging from hypotension to hypertension. -monitor -midodrine PRN -metoprolol p.r.n. Diabetes mellitus type 2 oce-ugthcke-rrlicapku with hyperglycemia: On tube feeding. SSI. continue Lantus 20u BID Dispo: on ventilator, s/p trach, wean O2.
[2020-06-14] MEDS: MIDAZOLAM HCL 100 MG in NA CHLORIDE 0.9% 80 ML IV PRN (22:06)
[2020-06-15] MEDS: CISATRACURIUM INJECTION 2 MG/ML (10 ML Vial) IV PRN ×3 (02:00→11:28)
[2020-06-15] MEDS: HYDROMORPHONE HCL 2 MG/ML inj IV PRN ×3 (02:00→09:24)
[2020-06-15] MEDS: LORazepam 2 MG/ML VIAL IV PRN ×3 (02:45→11:28)
[2020-06-15 05:28] VITALS: BMI 26.0
[2020-06-15 05:55] LABS: Absolute Lymphocytes (CBC) 0.8 K/uL (0.7-4.9); Basophils % 0.4 % (0-1.3); Hematocrit 36.5 % (39.6-49.0); Lymphocytes % 9.1 % (15.3-44.8); MPV 9.3 fL (7.6-11.3); RBC Red Blood Cell Count 4.07 M/uL (4.33-5.43)
[2020-06-15] MEDS: INSULIN -REGULAR HUMAN 50 UNIT/0.5 ML ML SQ SCH (06:21)
[2020-06-15] MEDS: ZIPRASIDONE MESYLA 20 MG/VIAL IM SCH (06:22)
[2020-06-15] MEDS: WATER FOR INJ,STERILE 10 ML IM PRN (06:22)
[2020-06-15 06:37] LABS: ALT/SGPT 149 U/L (12-78); AST/SGOT 89 U/L (15-37); Albumin 2.1 g/dL (3.4-5.0); Alkaline Phosphatase 130 U/L (45-117); BUN Blood Urea Nitrogen 18 mg/dL (7-18); Bicarbonate 31 mmol/L (21-32); Ferritin 3267.6 ng/mL (26-388); Glucose Level 172 mg/dL (74-106); Potassium 3.4 mmol/L (3.5-5.1); Protein, Total 5.2 g/dL (6.4-8.2); Sodium Level 141 mmol/L (136-145)
[2020-06-15] MEDS: MIDAZOLAM HCL 100 MG in NA CHLORIDE 0.9% 80 ML IV PRN (07:33)
[2020-06-15 08:16] VITALS: O2SAT 94
[2020-06-15] MEDS: APIXABAN 5 MG TABLET PO SCH (08:21)
[2020-06-15] MEDS: VITAMIN D 1000 UNIT TAB PO SCH (08:21)
[2020-06-15] MEDS: KCL 20 MEQ/100 mL IVPB 20 MEQ/100 ML BAG IV SCH ×3 (08:21→10:39)
[2020-06-15] MEDS: INSULIN GLARGINE 100 UNITS/ML SQ SCH (08:22)
[2020-06-15] MEDS: SCOPOLAMINE HYDROBROMIDE PATCH TD SCH (08:22)
[2020-06-15] MEDS: FAMOTIDINE 20 MG TAB PO SCH (08:22)
[2020-06-15] MEDS: FENTANYL CITR 100 MCG/2 ML IV PRN (09:44)
[2020-06-15 10:28] VITALS: TEMP 97.8
--- NOTE | 2020-06-15 10:28 | P.PN ---
Subjective Date of Service: 06/15/20 Primary Care Provider: BARBARA mccarty Chief Complaint: Respiratory failure Condition stable still has significant agitation accepted to an LTAC facility Review of Systems is unable to be obtained Physical Examination - Vital Signs Temperature: 97 F Blood Pressure: 80/62 Pulse: 87 Respirations: 30 Pulse Ox (%): 93 - Physical Exam General: Unresponsive, Other (Agitated) Respiratory: Clear to auscultation bilaterally, Diminished Cardiovascular: Normal pulses - Studies Medications List Reviewed: Yes Assessment & Plan - Problems (Diagnosis) (1) 2019 novel coronavirus detected Current Visit: Yes Status: Acute Plan: Respiratory failure from coronal virus condition stable patient is stable to be transferred oxygen requirement is 65% peep of 12 which can be decreased labs all reviewed his ferritin levels have been persistently high CRP levels of also increasing may be due to underlying severe agitation discuss with the family members
[2020-06-15] MEDS: CISATRACURIUM BESYLATE 80 MG in NA CHLORIDE 0.9% 160 ML IV PRN (11:19)
[2020-06-15 12:08] VITALS: BP 103/82
--- NOTE | 2020-06-16 09:37 | OP ---
Date of Procedure: 06/05/2020 Surgeon: Barbara Miranda MD Wrister: Ananya North. Preoperative Diagnoses: Prolonged mechanical ventilation, COVID pneumonia. Postoperative Diagnoses: Prolonged mechanical ventilation, COVID pneumonia. Procedure: Open tracheostomy. Estimated Blood Loss: Less than 5 mL. Specimens: None. Anesthesia: General. Details Of Procedure: The patient presented with COVID pneumonia, requiring mechanical ventilation and endotracheal intubation. The patient was noted to have a significant agitation with attempts at weaning sedation and decision was made to proceed with tracheostomy. The risks, benefits, and alternatives to the procedure were discussed with the patient's family and the comprehensive care team. The patient was brought to the operating room and placed in a supine position with a shoulder roll and neck extension. The patient was preoxygenated with 100% FiO2. The neck was cleaned and prepped in a standard sterile fashion using Betadine. A 2 cm incision was made through the skin and subcutaneous tissues approximately 2 fingerbreadths above the sternal notch and approximately 1 fingerbreadth below the cricoid cartilage by palpation. A 1.5 x 2 cm area of cervical fat was removed in order to reduce soft tissue between the skin and the trachea in case of inadvertent tracheostomy tube dislodgement. The strap muscles were identified and elevated and retracted from the surgical field using [place] retractors. The thyroid isthmus was noted and divided using Bovie electrocautery. This allowed visualization of the prevertebral fascia. A brief intraoperative time-out was taken to confirm the further surgical plan and ensure good communication between all the team members. Ventilation was then held. An incision was made in the trachea between the second and third tracheal rings. The incision was enlarged using curved scissors and the trachea was spread allowing view of the endotracheal tube. The tube was then withdrawn slowly by the Anesthesia team until the tip was barely visible from the tracheal incision. 8 low-pressure cuffed Shiley tracheostomy tube was placed without difficulty into the trachea. The inner cannula was placed. The balloon was inflated and the circuit was connected and ventilation was then resumed. The tracheostomy tube was secured to the patient's skin using 2-0 silk sutures in a four-point fashion and the umbilical tie was applied around the neck for further securing of the tracheostomy tube. The endotracheal tube was completely removed from the patient's oral cavity. The patient underwent then appropriate ventilation in the operating room. The patient was then returned to the ICU for further management of his COVID pneumonia. Dr. Miranda will be unavailable following the procedure but resumption of any tracheostomy concerns will be covered by Dr. Jeff Tavarez. SAMM/WILLIAMS Voice ID: [id number] Report ID: [id number]
== END 2020-06-15 11:50 | DRG 4 ==
LOC: ER 21:23 → ERHOLD 23:31 → 4TH 05-07 00:12 → OBSVTOIN 05-07 17:21 → 3RD-ICU 05-24 14:37
PROVIDERS: ADMIT Family Medicine; ATTEND Internal Medicine
PROC: 02HV33Z Insertion of Infusion Device into Superior Vena Cava, Percutaneous Approach (ICD-10-PCS; 2020-05-06)
PROC: XW033E5 Introduction of Remdesivir Anti-infective into Peripheral Vein, Percutaneous Approach, New Technology Group 5 (ICD-10-PCS; 2020-05-09)
PROC: XW13325 Transfusion of Convalescent Plasma (Nonautologous) into Peripheral Vein, Percutaneous Approach, New Technology Group 5 (ICD-10-PCS; 2020-05-09)
PROC: 5A1955Z Respiratory Ventilation, Greater than 96 Consecutive Hours (ICD-10-PCS; 2020-05-24)
PROC: 0BH17EZ Insertion of Endotracheal Airway into Trachea, Via Natural or Artificial Opening (ICD-10-PCS; 2020-05-24)
PROC: 0B110F4 Bypass Trachea to Cutaneous with Tracheostomy Device, Open Approach (ICD-10-PCS; principal; 2020-06-05 07:00)
DX: U07.1 COVID-19 (principal); J12.82 Pneumonia due to coronavirus disease 2019; J96.01 Acute respiratory failure with hypoxia; N02.9 Recurrent and persistent hematuria with unspecified morphologic changes; D72.829 Elevated white blood cell count, unspecified; E11.65 Type 2 diabetes mellitus with hyperglycemia; E11.649 Type 2 diabetes mellitus with hypoglycemia without coma; E66.9 Obesity, unspecified; Z68.33 Body mass index [BMI] 33.0-33.9, adult; Z79.899 Other long term (current) drug therapy; Z79.52 Long term (current) use of systemic steroids; Z79.01 Long term (current) use of anticoagulants; Z79.4 Long term (current) use of insulin; Z23 Encounter for immunization
CPT/HCPCS: 36415; 36430; 36569; 71045; 74018; 80048; 80053; 80076; 80202; 81003; 81015; 82248; 82728; 82805; 82947; 83036; 83605; 83615; 83690; 83735; 84100; 84132; 84145; 84484; 85025; 85027; 85610; 85730; 86140; 86900; 86901; 86927; 87040; 87070; 87205; 90471; 93005; 94002; 94003; 94010; 94660; 94760; 96374; 97110; 97112; 97161; 99285; J0360; J0690; J1100; J1170; J1650; J1815; J2185; J2250; J2370; J2704; J2920; J2930; J3010; J3370; J3411; J3480; J3486; J7030; J7040; J7050; J7606; P9047; Q2035; U0003